=== PATIENT | male | born 1925 | race Caucasian/White ===

== ENCOUNTER 2017-02-06 23:40 | Emergency (ER) | payer MEDICARE, MEDICAID ==
[2017-02-06] MEDS ORDERED: NS 0.9% 1000 ML* 1,000 ML IV ONE (23:59)
[2017-02-07] MEDS ORDERED: Diltiazem IV* 5 MG/ML 5 ML VIAL (for loading dose/IV Push) (25 MG) IV SLOW PU ONE (00:03)
[2017-02-07 00:44] LABS: Hematocrit 46 % (42-52); Hemoglobin 15.4 g/dl (14.0-18.0); Mean Corpuscular HGB Conc 33 g/dl (31-36); Mean Corpuscular Hemoglobin 31 pg (27-31); Mean Corpuscular Volume 93 fL (80-94); Mean Platelet Volume 8 um3 (7.4-10.4); Red Blood Count 4.98 10^6/ul (4.0-5.4); Red Cell Distribution Width 14 % (10.5-15); White Blood Count 9.3 10^3/ul (3.5-10.8)
[2017-02-07 00:56] LABS: Albumin 4.1 g/dL (3.2-5.2); BUN/Creatinine Ratio 12.7 (8-20); Calcium 10.1 mg/dL (8.6-10.3); EGFR African American 27.1 (>60); EGFR Non-African American 21.1 (>60); Globulin 3.8 g/dL (2-4); Potassium 4.7 mmol/L (3.5-5.0); Total Bilirubin 0.7 mg/dL (0.2-1.0); Total Protein 7.9 g/dL (6.4-8.9)
[2017-02-07 00:58] LABS: Troponin I 0.01 ng/mL (<0.04)
[2017-02-07] MEDS ORDERED: NS 0.9% 500 ML* 500 ML IV ONE (01:00)
--- NOTE | 2017-02-07 03:10 | ED ---
Lewis Stewart Adam, scribed for Saji Lyon on 02/07/17 at 0005 . Adult Trauma - HPI Summary HPI Summary: Pt is an 89 year old male BIBA from assisted living after a fall. The pt tripped over the door threshold while coming out of the bathroom. He states that he does not think that he lost consciousness, although he indicated to the nurse +LOC. He presents with abrasions to his left shoulder, forehead, nose, and the left side of his face. He c/o left shoulder pain. He denies neck pain, CP, and abdominal pain. PMHx of A Fib, CAD, PVD, spinal stenosis, HTN, hyperparathyroidism, GERD, and CKD. - History of Current Complaint Chief Complaint: ED Stated Complaint: FALL Time Seen by Provider: 02/06/17 23:45 Hx Obtained From: Patient Mechanism of Injury: Fall Ambulatory at the Scene: Yes Loss of Consciousness: no loss of consciousness - Although he told nurse +LOC Onset/Duration: Started Minutes Ago, Traumatic, Still Present Onset of Pain: Immediate Onset Severity: Moderate Current Severity: Moderate Pain Intensity: 10 Pain Scale Used: 0-10 Numeric Location: Extremities - Left shoulder Aggravating Factor(s): Nothing Alleviating Factor(s): Nothing Associated Signs & Symptoms: Positive: Other: - Abrasions to left shoulder, forehead, nose, and left side of face. - Additional Pertinent History Primary Care Physician: [id number] - Allergy/Home Medications Allergies/Adverse Reactions: Allergies Allergy/AdvReac Type Severity Reaction Status Date / Time Codeine Allergy Intermediate Vomiting Verified 09/06/16 13:51 Donepezil Allergy Unknown Verified 09/06/16 13:51 Reaction Details Neomycin Allergy Unknown Verified 09/06/16 13:51 Reaction Details Penicillins Allergy Unknown Verified 09/06/16 13:51 Reaction Details PMH/Surg Hx/FS Hx/Imm Hx Endocrine/Hematology History: Reports: Hx Thyroid Disease - hyperthyroid, Other Endocrine/Hematological Disorders - Hx of hypomagnesemia Denies: Hx Anticoagulant Therapy - pt denies Cardiovascular History: Reports: Hx Atrial Fibrillation, Hx Coronary Artery Disease, Hx Hypertension, Hx Peripheral Vascular Disease GI History: Reports: Hx Gastroesophageal Reflux Disease History: Reports: Hx Chronic Renal Failure Neurological History: Reports: Hx Dementia - Surgical History Surgery Procedure, Year, and Place: hernia repair Infectious Disease History: No Infectious Disease History: Denies: Hx Clostridium Difficile, Hx Hepatitis, Hx Human Immunodeficiency Virus (HIV), Hx of Known/Suspected MRSA, Hx Shingles, Hx Tuberculosis, History Other Infectious Disease, Traveled Outside the [place] in Last 30 Days - Family History Known Family History: Positive: Other - No FHx of DVT - Social History Occupation: Retired Lives: Assisted Living Alcohol Use: None Hx Substance Use: No Substance Use Type: Reports: None Hx Tobacco Use: No Smoking Status (MU): Never Smoked Tobacco Review of Systems Negative: Fever Positive: Arthralgia - Left shoulder, Decreased ROM - Left arm Positive: Other - Abrasion of forehead, nose, and left side of face. Abrasion over left shoulder as well. All Other Systems Reviewed And Are Negative: Yes Physical Exam Triage Information Reviewed: Yes Vital Signs On Initial Exam: Initial Vitals Temp Pulse Resp BP Pulse Ox 98.7 F 126 20 104/62 93 02/06/17 23:51 02/06/17 23:51 02/06/17 23:51 02/06/17 23:51 02/06/17 23:51 Vital Signs Reviewed: Yes Appearance: Positive: Well-Appearing, No Pain Distress Skin: Positive: Warm, Skin Color Reflects Adequate Perfusion, Dry Head/Face: Positive: Other - Abrasion of forehead and nose and left side of face Eyes: Positive: EOMI, MAGALI ENT: Positive: Normal ENT inspection Neck: Positive: Supple, Nontender Respiratory/Lung Sounds: Positive: Clear to Auscultation, Breath Sounds Present Cardiovascular: Positive: IRR - Irregularly irregular, A Fib, Tachycardia Abdomen Description: Positive: Nontender, Soft Musculoskeletal: Positive: Other - Painful abrasion over left shoulder. Restricted ROM of left arm. Neurological: Positive: Normal, Sensory/Motor Intact, Alert, Oriented to Person Place, Time Diagnostics - Vital Signs Vital Signs Temp Pulse Resp BP Pulse Ox 02/06/17 23:51 98.7 F 126 20 104/62 93 - Laboratory Result Diagrams: 02/07/17 00:25 02/07/17 00:25 Lab Statement: Any lab studies that have been ordered have been reviewed, and results considered in the medical decision making process. - Radiology LEFT SHOULDER Radiology Interpretation Completed By: ED Physician - NEGATIVE FOR FRACTURE - CT CERVICAL SPINE CT Interpretation Completed By: Radiologist - IMPRESSION: NO FRACTURE OR LISTHESIS IS SEEN. BRAIN CT Interpretation Completed By: Radiologist - IMPRESSION: NO MASS EFFECT OR INTRACRANIAL HEMORRHAGE. OLD SMALL VESSEL INFARCT IN THE CAUDATE NUCLEUS AND RIGHT MAXILLOFACIAL CT Interpretation Completed By: Radiologist - IMPRESSION: NO FRACTURE OR DISLOCATION SEEN. - EKG 00:30 Cardiac Rate: Tachycardia - 115 BPM EKG Rhythm: Atrial Fibrillation - With RVR - Additional Comments Diagnostic Additional Comments: Troponin I - 0.01 Adult Trauma Course/Dx - Course Course Of Treatment: No fracture visualized in Shoulder X-Ray image. However, I will call the patient back tomorrow with the radiologist's report if there is in fact a fracture. - Diagnoses Provider Diagnoses: Head injury, Contusion of face, Left shoulder pain Discharge - Discharge Plan Condition: Stable Disposition: HOME Patient Education Materials: Head Injury (ED), Facial Contusion (ED), Shoulder Pain (ED) Referrals: [facility] [Outside] Additional Instructions: Follow up with your Primary Care Physician in 2 days. If needed, use [facility]. The documentation as recorded by the Lewis boyd Adam accurately reflects the service I personally performed and the decisions made by , Saji Lyon.
[2017-02-07 04:00] VITALS: BP 115/67
--- NOTE | 2017-02-07 07:31 | RAD ---
INDICATION: Trauma. COMPARISON: Comparison is made with a prior chest x-ray study from July 10, 2016. TECHNIQUE: A portable view of the chest was obtained. FINDINGS: Cardiac and mediastinal contours appear to be within normal limits. The lungs are underinflated and clear. No pleural effusion is seen. IMPRESSION: NO EVIDENCE FOR ACUTE DISEASE.
--- NOTE | 2017-02-07 07:49 | RAD ---
INDICATION: Head injury. COMPARISON: Comparison is made with a prior CT of the brain from April 11, 2015. TECHNIQUE: Contiguous axial sections of the brain were obtained from the skull base to the vertex without contrast. FINDINGS: The ventricles, cisterns and sulci are enlarged consistent with diffuse atrophy. There is an old lacunar infarct present within the right caudate nucleus. No other focal lateral mallear mass effect is seen. There is no evidence for hemorrhage. Soft tissue swelling is noted anterior to the left frontal bone. No fracture is seen. The visualized portion of the paranasal sinuses and mastoid air cells appear clear. IMPRESSION: 1. NO EVIDENCE FOR ACUTE INTRACRANIAL ABNORMALITY. 2. OLD LACUNAR INFARCT WITHIN THE RIGHT CAUDATE NUCLEUS.
--- NOTE | 2017-02-07 07:59 | RAD ---
INDICATION: Trauma. COMPARISON: There are no prior studies available for comparison. TECHNIQUE: Contiguous axial sections were obtained from the skull base through the T1 vertebra. Images were reconstructed in the sagittal and coronal planes. FINDINGS: There is straightening of the cervical spine with loss of the normal cervical lordosis. No prevertebral soft tissue swelling or fracture is seen. At the C3-C4 level there are moderate hypertrophic changes within the facet joints and moderate posterior uncinate process spurring. No significant spinal canal narrowing is present. There is moderate bilateral neural foraminal narrowing. At the C4-C5 level there are moderate hypertrophic changes within the facet joints. There is mild posterior uncinate process spurring. No significant spinal canal narrowing is present. There is moderate neural foraminal narrowing on the right side and mild neural foraminal narrowing on the left side. At the C5-C6 level there is mild posterior uncinate process spurring. No significant spinal canal or neural foraminal narrowing is present. At the C6-C7 level there is mild posterior uncinate process spurring. There is mild spinal canal narrowing and mild to moderate bilateral neural foraminal narrowing. The patient appears to be status post removal of the left thyroid lobe. The right thyroid lobe is enlarged with multiple nodules. Recommend a follow-up thyroid ultrasound for further evaluation. IMPRESSION: 1. STRAIGHTENING OF THE CERVICAL SPINE, NO EVIDENCE FOR FRACTURE OR SUBLUXATION. 2. RIGHT THYROID LOBE NODULES. RECOMMEND A FOLLOW-UP THYROID ULTRASOUND FOR FURTHER EVALUATION.
--- NOTE | 2017-02-07 08:00 | RAD ---
Indication: Pain LEFT shoulder post fall. Comparison: None. Technique: Neutral and external rotation AP and scapular Y views LEFT shoulder Report: Normal acromioclavicular and glenohumeral joint alignment. Advanced osteophytosis at the acromioclavicular and mild osteophytosis at the glenohumeral joints. Stigmata of calcific tendinopathy at the supraspinatus tendon. Negative for fracture. Unremarkable soft tissue contours. IMPRESSION: Negative for fracture or dislocation. Degenerative arthropathy. Calcific tendinopathy.
--- NOTE | 2017-02-07 08:04 | RAD ---
Indication: Trauma, facial injury. CT of the facial bones was obtained in the axial plane. Sagittal and coronal reconstructed images noted. The visualized orbits demonstrate no evidence of abnormal masses or fluid collections. Minimal mucosal thickening with air-fluid level is noted in the right maxillary sinus. No fracture is noted. There may BE obstruction of the right ostiomeatal unit. Mucosal thickening of the ethmoid air cells is noted. No definite fracture is noted. The temporomandibular joint and mandible show no evidence of fracture. The maxilla including the pterygoid plates demonstrates no evidence of fracture. The nasal arch and nasal spine are unremarkable. IMPRESSION: No fracture of the facial bones is identified. Chronic sinusitis with mucosal thickening of the ethmoid air cells and right maxillary sinus with fluid in the right maxillary sinus.
== END 2017-02-07 03:59 | disposition home or self-care (01) ==
LOC: ED 23:40
DX: S09.90XA Unspecified injury of head, initial encounter (principal); S40.212A Abrasion of left shoulder, initial encounter; S00.93XA Contusion of unspecified part of head, initial encounter; W19.XXXA Unspecified fall, initial encounter; Y93.9 Activity, unspecified; Y92.9 Unspecified place or not applicable; Y99.9 Unspecified external cause status
CPT/HCPCS: 36415; 70450; 70486; 71010; 72125; 80053; 82550; 84484; 85025; 85610; 93005; 96374; 99283

== ENCOUNTER 2017-02-08 11:36 | Emergency (ER) | payer MEDICARE, MEDICAID ==
[2017-02-08] MEDS ORDERED: Acetaminophen TAB* 325 MG PO ONE (12:39)
--- NOTE | 2017-02-08 14:02 | RAD ---
Indication: Inability to move LEFT shoulder post fall. Comparison: February 07, 2017 radiographs. Technique: Noncontrast CT LEFT shoulder. Multiplanar reformation. Report: Normal acromioclavicular and glenohumeral joint alignment. Moderately severe osteophytosis and capsular hypertrophy at the acromioclavicular joint. Small volume of fluid in the subacromial subdeltoid bursa. Small focus of calcific tendinopathy at the posterior margin of the supraspinatus and anterior margin of the infraspinatus tendons. Negative for significant rotator cuff muscle atrophy. Mild osteophytosis and joint space narrowing at the glenohumeral joint. Enthesophytes and subchondral cystic change at the greater tuberosity typically seen in association with rotator cuff pathology. IMPRESSION: Degenerative arthropathy including calcific tendinopathy of the rotator cuff. Small volume of fluid in the subacromial subdeltoid bursa. Negative for fracture or malalignment.
--- NOTE | 2017-02-08 14:21 | ED ---
Upper Extremity Pain - HPI Summary HPI Summary: 89M presents with left shoulder pain since fall two days ago. He had xray at that time which was normal. He states he has been unable to raise his arm and that every time he tries to use it, his arm drops. He has been using Tylenol for pain and that is not enough. He is a [facility] an [facility]. He denies any chest pain or SOB. He denies any locking of his shoulder. - History of Current Complaint Chief Complaint: Nasreen Stated Complaint: FALL TWO DAYS AGO SHOULDER PAIN Time Seen by Provider: 02/08/17 11:55 - Allergies/Home Medications Allergies/Adverse Reactions: Allergies Allergy/AdvReac Type Severity Reaction Status Date / Time Codeine Allergy Intermediate Vomiting Verified 09/06/16 13:51 Donepezil Allergy Unknown Verified 09/06/16 13:51 Reaction Details Neomycin Allergy Unknown Verified 09/06/16 13:51 Reaction Details Penicillins Allergy Unknown Verified 09/06/16 13:51 Reaction Details PMH/Surg Hx/FS Hx/Imm Hx Endocrine/Hematology History: Reports: Hx Thyroid Disease - hyperthyroid, Other Endocrine/Hematological Disorders - Hx of hypomagnesemia Denies: Hx Anticoagulant Therapy - pt denies Cardiovascular History: Reports: Hx Atrial Fibrillation, Hx Coronary Artery Disease, Hx Hypertension, Hx Peripheral Vascular Disease, Other Cardiovascular Problems/Disorders - PVD, CHRONIC RENAL FAILURE GI History: Reports: Hx Gastroesophageal Reflux Disease History: Reports: Hx Chronic Renal Failure Neurological History: Reports: Hx Dementia - Surgical History Surgery Procedure, Year, and Place: hernia repair Infectious Disease History: Denies: Hx Clostridium Difficile, Hx Hepatitis, Hx Human Immunodeficiency Virus (HIV), Hx of Known/Suspected MRSA, Hx Shingles, Hx Tuberculosis, History Other Infectious Disease, Traveled Outside the [place] in Last 30 Days - Family History Known Family History: Positive: None, Other - No FHx of DVT Family History: R & n/C - Social History Alcohol Use: None Hx Substance Use: No Substance Use Type: Reports: None Hx Tobacco Use: No Smoking Status (MU): Never Smoked Tobacco Review of Systems Negative: Fever Negative: Chest Pain Positive: Myalgia - left shoulder pain All Other Systems Reviewed And Are Negative: Yes Physical Exam Triage Information Reviewed: Yes Vital Signs On Initial Exam: Initial Vitals BP 113/56 02/08/17 11:55 Vital Signs Reviewed: Yes Appearance: Positive: Well-Appearing Skin: Positive: Warm, Dry Head/Face: Positive: Normal Head/Face Inspection Eyes: Positive: Normal, Conjunctiva Clear Neck: Positive: Nontender Respiratory/Lung Sounds: Positive: Clear to Auscultation, Breath Sounds Present Cardiovascular: Positive: Normal, RRR Musculoskeletal: Positive: Other - pos drop arm on exam, unable to move shoulder behind back, good pulses, capillary refill <2 secs Diagnostics - Vital Signs Vital Signs Temp Pulse Resp BP Pulse Ox 02/08/17 13:00 58 98/67 93 02/08/17 12:00 59 110/64 96 02/08/17 11:59 97.8 F 57 18 113/56 96 02/08/17 11:57 59 96 02/08/17 11:55 113/56 - Laboratory Lab Statement: Any lab studies that have been ordered have been reviewed, and results considered in the medical decision making process. - CT shoulder CT Interpretation: Positive (See Comments) - IMPRESSION: Degenerative arthropathy including calcific tendinopathy of the rotator cuff. Small volume of fluid in the subacromial subdeltoid bursa. Negative for fracture or malalignment. CT Interpretation Completed By: Radiologist Course/Dx - Course Course Of Treatment: 89M presents with left shoulder pain for 2 days s/p fall. shoulder pain is mechanical and do not suspect any cardiac reason for pain. unable to move shoulder. xray normal. pos drop arm on exam. CT normal suspect likely rotator cuff injury. will place in sling and have follow up with ortho. patient understands and agrees with plan - Diagnoses Differential Diagnosis/HQI/PQRI: Positive: Contusion, Fracture (Closed), Strain , Sprain, Other - rotator cuff tear Provider Diagnoses: Left shoulder pain Discharge - Discharge Plan Condition: Good Disposition: HOME Prescriptions: traMADol TAB* [Ultram*] 50 mg PO Q8H PRN #15 tab MDD 3 PRN Reason: Pain Patient Education Materials: Rotator Cuff Injury (ED) Referrals: Marin Montalvo MD [Medical Doctor] - No Primary Care Phys,NOPCP [Primary Care Provider] - Additional Instructions: Follow up with ortho for shoulder Keep area in sling Take Tylenol for pain every 6 hours, use tramadol every 6 hours for break through pain Return to ED if develop any new or worsening symptoms
[2017-02-08 14:41] VITALS: BP 106/55
== END 2017-02-08 14:41 | disposition home or self-care (01) ==
LOC: ED 11:36
DX: M25.512 Pain in left shoulder (principal); W19.XXXA Unspecified fall, initial encounter; Y92.9 Unspecified place or not applicable; I48.91 Unspecified atrial fibrillation; Z88.0 Allergy status to penicillin; E05.90 Thyrotoxicosis, unspecified without thyrotoxic crisis or storm; E83.42 Hypomagnesemia; I25.10 Atherosclerotic heart disease of native coronary artery without angina pectoris; I10 Essential (primary) hypertension; I73.9 Peripheral vascular disease, unspecified; K21.9 Gastro-esophageal reflux disease without esophagitis
CPT/HCPCS: 99282; A9270-GY

== ENCOUNTER 2017-02-14 15:32 | Inpatient (IN) | payer MEDICARE, MEDICAID ==
[2017-02-14] MEDS ORDERED: NS 0.9% 1000 ML* 1,000 ML IV ONE (15:58)
[2017-02-14 16:05] LABS: Hematocrit 47 % (42-52); Hemoglobin 15.2 g/dl (14.0-18.0); Mean Corpuscular HGB Conc 33 g/dl (31-36); Mean Corpuscular Hemoglobin 30 pg (27-31); Mean Corpuscular Volume 93 fL (80-94); Mean Platelet Volume 8 um3 (7.4-10.4); Red Cell Distribution Width 14 % (10.5-15)
[2017-02-14 16:27] LABS: Troponin I 0.02 ng/mL (<0.04)
[2017-02-14 16:28] LABS: Albumin 4.1 g/dL (3.2-5.2); BUN/Creatinine Ratio 14.9 (8-20); C Reactive Protein 21.27 mg/L (< 5.00); Calcium 10.1 mg/dL (8.6-10.3); EGFR African American 28.9 (>60); EGFR Non-African American 22.5 (>60); Globulin 3.9 g/dL (2-4); Magnesium 2.1 mg/dL (1.9-2.7); Potassium 4.8 mmol/L (3.5-5.0); Total Bilirubin 0.7 mg/dL (0.2-1.0)
[2017-02-14 16:55] LABS: TSH (Thyroid Stimulating Horm) 1.01 mcIU/mL (0.34-5.60)
--- NOTE | 2017-02-14 17:24 | RAD ---
INDICATION: Weakness. COMPARISON: Comparison is made with a prior chest x-ray study from February 07, 2017. TECHNIQUE: A portable view of the chest was obtained. FINDINGS: Cardiac and mediastinal contours appear to be within normal limits. The lungs are clear. No pleural effusion is seen. IMPRESSION: NO EVIDENCE FOR ACUTE DISEASE.
--- NOTE | 2017-02-14 17:44 | ED ---
Chase Stewart Billy, scribed for Ady Vo MD on 02/14/17 at 1605 . Complex/Multi-Sys Presentation - HPI Summary HPI Summary: Patient is an 89 year-old male BIBA to [facility] from [facility]. Per medical records, patient was sent to the ED for evaluation of orthostacic hypotension, dehydration, acute renal failure, emesis, decreased appetite, weakness, incontinence, dizziness, and left shoulder pain from a fall 02/09/17. In the ED, patient states that he fell and hurt his shoulder today, and denies any other pain. - History Of Current Complaint Chief Complaint: EDDizziness Time Seen by Provider: 02/14/17 15:55 Hx Obtained From: Patient Onset/Duration: Gradual Onset, Lasting Days, Still Present Timing: Intermittent, Lasting: Severity Currently: Moderate Severity Initially: Moderate Aggravating Factor(s): none Alleviating Factor(s): none Associated Signs And Symptoms: Positive: Dizziness, Weakness, Vomiting, Decreased Oral Intake, Other - incontinence, left shoulder pain, - Allergies/Home Medications Allergies/Adverse Reactions: Allergies Allergy/AdvReac Type Severity Reaction Status Date / Time Codeine Allergy Intermediate Vomiting Verified 09/06/16 13:51 Donepezil Allergy Unknown Verified 09/06/16 13:51 Reaction Details Neomycin Allergy Unknown Verified 09/06/16 13:51 Reaction Details Penicillins Allergy Unknown Verified 09/06/16 13:51 Reaction Details Home Medications: Home Medications Cyanocobalamin TAB* [Vitamin B12 TAB*] 1,000 mcg PO DAILY 02/14/17 [History Confirmed 02/14/17] Doxazosin TAB* [Cardura TAB*] 1 mg PO BEDTIME 02/14/17 [History Confirmed ] Furosemide TAB* [Lasix TAB*] 20 mg PO BID 02/14/17 [History Confirmed 02/14/17] Metoprolol Tartrate TAB* [Lopressor TAB*] 12.5 mg PO DAILY 02/14/17 [History Confirmed 02/14/17] traMADol TAB* [Ultram*] 50 mg PO BID 02/14/17 [History Confirmed 02/14/17] PMH/Surg Hx/FS Hx/Imm Hx Endocrine/Hematology History: Reports: Hx Thyroid Disease - hyperthyroid, Other Endocrine/Hematological Disorders - Hx of hypomagnesemia Denies: Hx Anticoagulant Therapy - pt denies Cardiovascular History: Reports: Hx Atrial Fibrillation, Hx Coronary Artery Disease, Hx Hypertension, Hx Peripheral Vascular Disease, Other Cardiovascular Problems/Disorders - PVD, CHRONIC RENAL FAILURE GI History: Reports: Hx Gastroesophageal Reflux Disease History: Reports: Hx Chronic Renal Failure Neurological History: Reports: Hx Dementia - Surgical History Surgery Procedure, Year, and Place: hernia repair Infectious Disease History: No Infectious Disease History: Denies: Hx Clostridium Difficile, Hx Hepatitis, Hx Human Immunodeficiency Virus (HIV), Hx of Known/Suspected MRSA, Hx Shingles, Hx Tuberculosis, History Other Infectious Disease, Traveled Outside the [place] in Last 30 Days - Family History Known Family History: Positive: None, Other - No FHx of DVT Family History: R & n/C - Social History Alcohol Use: None Hx Substance Use: No Substance Use Type: Reports: None Hx Tobacco Use: No Smoking Status (MU): Never Smoked Tobacco Review of Systems Positive: Other - orthostatic hypotension Positive: Vomiting, Other - decreased appetite Positive: incontinence Positive: Arthralgia - left shoulder Neurological: Other - confusion Positive: Weakness All Other Systems Reviewed And Are Negative: Yes Physical Exam Triage Information Reviewed: Yes Vital Signs On Initial Exam: Initial Vitals Temp Pulse Resp BP Pulse Ox 98.0 F 89 18 98/83 97 02/14/17 15:37 02/14/17 15:37 02/14/17 15:37 02/14/17 15:37 02/14/17 15:37 Vital Signs Reviewed: Yes Appearance: Positive: Well-Appearing, No Pain Distress Skin: Positive: Warm, Skin Color Reflects Adequate Perfusion, Dry Head/Face: Positive: Normal Head/Face Inspection Eyes: Positive: EOMI, MAGALI Neck: Positive: Supple, Nontender Respiratory/Lung Sounds: Positive: Clear to Auscultation, Breath Sounds Present , Decreased Breath Sounds Cardiovascular: Positive: RRR Abdomen Description: Positive: Nontender, Soft Bowel Sounds: Positive: Present Musculoskeletal: Positive: Pain @ - left shoulder Neurological: Positive: Sensory/Motor Intact, Other - mild confusion Psychiatric: Positive: Affect/Mood Appropriate Diagnostics - Vital Signs Vital Signs Temp Pulse Resp BP Pulse Ox 02/14/17 15:37 98.0 F 89 18 98/83 97 - Laboratory Lab Results: Lab Results 02/14/17 02/14/17 02/14/17 Range/Units 15:54 15:54 15:54 WBC 9.0 (3.5-10.8) 10^3/ul RBC 5.00 (4.0-5.4) 10^6/ul Hgb 15.2 (14.0-18.0) g/dl Hct 47 (42-52) % MCV 93 (80-94) fL MCH 30 (27-31) pg MCHC 33 (31-36) g/dl RDW 14 (10.5-15) % Plt Count 203 (150-450) 10^3/ul MPV 8 (7.4-10.4) um3 Neut % (Auto) 80.4 (38-83) % Lymph % (Auto) 10.2 L (25-47) % Day % (Auto) 8.4 (1-9) % Eos % (Auto) 0.3 (0-6) % Baso % (Auto) 0.7 (0-2) % Absolute Neuts (auto) 7.2 (1.5-7.7) 10^3/ul Absolute Lymphs (auto) 0.9 L (1.0-4.8) 10^3/ul Absolute Monos (auto) 0.7 (0-0.8) 10^3/ul Absolute Eos (auto) 0 (0-0.6) 10^3/ul Absolute Basos (auto) 0.1 (0-0.2) 10^3/ul Absolute Nucleated RBC 0 10^3/ul Nucleated RBC % 0 INR (Anticoag Therapy) 0.97 (0.89-1.11) APTT 27.4 (26.0-36.3) seconds Sodium 131 L (133-145) mmol/L Potassium 4.8 (3.5-5.0) mmol/L Chloride 95 L (101-111) mmol/L Carbon Dioxide 28 (22-32) mmol/L Anion Gap 8 (2-11) mmol/L BUN 40 H (6-24) mg/dL Creatinine 2.69 H (0.67-1.17) mg/dL Est GFR ( Amer) 28.9 (>60) Est GFR (Non-Af Amer) 22.5 (>60) BUN/Creatinine Ratio 14.9 (8-20) Glucose 107 H (70-100) mg/dL Lactic Acid (0.5-2.0) mmol/L Calcium 10.1 (8.6-10.3) mg/dL Magnesium 2.1 (1.9-2.7) mg/dL Total Bilirubin 0.70 (0.2-1.0) mg/dL AST 20 (13-39) U/L ALT 17 (7-52) U/L Alkaline Phosphatase 59 (34-104) U/L Total Creatine Kinase 72 (10-223) U/L CK-MB (CK-2) 2.8 (0.6-6.3) ng/mL Troponin I 0.02 (<0.04) ng/mL C-Reactive Protein 21.27 H (< 5.00) mg/L B-Natriuretic Peptide ( - 100) pg/mL Total Protein 8.0 (6.4-8.9) g/dL Albumin 4.1 (3.2-5.2) g/dL Globulin 3.9 (2-4) g/dL Albumin/Globulin Ratio 1.1 (1-3) Lipase 21 (11.0-82.0) U/L TSH 1.01 (0.34-5.60) mcIU/mL 02/14/17 02/14/17 Range/Units 15:54 15:54 WBC (3.5-10.8) 10^3/ul RBC (4.0-5.4) 10^6/ul Hgb (14.0-18.0) g/dl Hct (42-52) % MCV (80-94) fL MCH (27-31) pg MCHC (31-36) g/dl RDW (10.5-15) % Plt Count (150-450) 10^3/ul MPV (7.4-10.4) um3 Neut % (Auto) (38-83) % Lymph % (Auto) (25-47) % Day % (Auto) (1-9) % Eos % (Auto) (0-6) % Baso % (Auto) (0-2) % Absolute Neuts (auto) (1.5-7.7) 10^3/ul Absolute Lymphs (auto) (1.0-4.8) 10^3/ul Absolute Monos (auto) (0-0.8) 10^3/ul Absolute Eos (auto) (0-0.6) 10^3/ul Absolute Basos (auto) (0-0.2) 10^3/ul Absolute Nucleated RBC 10^3/ul Nucleated RBC % INR (Anticoag Therapy) (0.89-1.11) APTT (26.0-36.3) seconds Sodium (133-145) mmol/L Potassium (3.5-5.0) mmol/L Chloride (101-111) mmol/L Carbon Dioxide (22-32) mmol/L Anion Gap (2-11) mmol/L BUN (6-24) mg/dL Creatinine (0.67-1.17) mg/dL Est GFR ( Amer) (>60) Est GFR (Non-Af Amer) (>60) BUN/Creatinine Ratio (8-20) Glucose (70-100) mg/dL Lactic Acid 2.8 H* (0.5-2.0) mmol/L Calcium (8.6-10.3) mg/dL Magnesium (1.9-2.7) mg/dL Total Bilirubin (0.2-1.0) mg/dL AST (13-39) U/L ALT (7-52) U/L Alkaline Phosphatase (34-104) U/L Total Creatine Kinase (10-223) U/L CK-MB (CK-2) (0.6-6.3) ng/mL Troponin I (<0.04) ng/mL C-Reactive Protein (< 5.00) mg/L B-Natriuretic Peptide 121 H ( - 100) pg/mL Total Protein (6.4-8.9) g/dL Albumin (3.2-5.2) g/dL Globulin (2-4) g/dL Albumin/Globulin Ratio (1-3) Lipase (11.0-82.0) U/L TSH (0.34-5.60) mcIU/mL Result Diagrams: 02/14/17 15:54 02/14/17 15:54 Lab Statement: Any lab studies that have been ordered have been reviewed, and results considered in the medical decision making process. - EKG 1550 EKG Interpretation: afib 104 bpm, TWI in III and aVF Complex Multi-Symp Course/Dx Assessment/Plan: ADMIT HOSPITALIST GUARDED. NO CRITICAL CARE TIME. - Diagnoses Provider Diagnoses: Hypotension, Weakness - Physician Notifications Discussed Care Of Patient With: Dr. Kolb (hospitalist) @ 1722: accepts admission. Discharge - Discharge Plan Condition: Guarded Disposition: ADMITTED TO [facility] Referrals: No Primary Care Phys,NOPCP [Primary Care Provider] - The documentation as recorded by the Chase boyd Billy accurately reflects the service I personally performed and the decisions made by me, Ady Vo MD.
[2017-02-14] MEDS ORDERED: NS 0.9% 1000 ML* 1,000 ML IV SCH (17:45)
[2017-02-14 17:47] LABS: Urine Bacteria Absent (Absent); Urine Bilirubin Negative (Negative); Urine Glucose Negative (Negative); Urine Nitrite Negative (Negative)
[2017-02-14] MEDS ORDERED: Calcium Carbonate CHEW TAB* 500 MG (TUMS) PO PRN (19:06)
[2017-02-14] MEDS: Doxazosin TAB* 2 MG PO SCH (21:04)
[2017-02-14] MEDS: Magnesium Oxide TAB* 400 MG PO SCH (21:05)
[2017-02-14] MEDS: NS 0.9% 1000 ML* 1,000 ML IV SCH (21:08)
[2017-02-14] MEDS: cefTRIAXone VIAL(*) 1,000 MG in NS 0.9% 50 ML* 50 ML IVPB SCH (21:08)
[2017-02-14] MEDS ORDERED: Melatonin (NF) 3 MG TAB PO PRN (22:14)
--- NOTE | 2017-02-14 23:21 | HP ---
HOSPITAL MEDICINE HISTORY AND PHYSICAL: DATE OF ADMISSION: 02/14/17 PRIMARY CARE PROVIDER: [facility]. ATTENDING PHYSICIAN: Dr. Benson Artis*(dictation provided by Joan Ford NP) CHIEF COMPLAINT: Weight loss and low blood pressure. HISTORY OF PRESENT ILLNESS: Mr. Isac Contreras is an [id number] with a past medical history of CKD stage 4, depression, atrial flutter, anxiety who presents today to the hospital with concern from [facility] for his low blood pressure, lack of interest in activities and weight loss. Per the report, Mr. Contreras had been doing relatively well at [facility]. He had made a friend of another female resident with whom he used to go to dinner and spend time with. Recently, she was transferred to another facility and since that time, Mr. Contreras has become more withdrawn. Staff reports that he does not leave his room and that he has been refusing to come out to eat. Mr. Contreras does confirm this and states that he has had much less interest in anything and does associate it with the fact that his friend has left. They started him on Lexapro at one point, but did not see any good improvement in his mood and therefore that had been discontinued. The patient has been seen by his physicians at the [facility] and there has been continued concern of the patient's weight loss. Apparently, the patient has lost 26 pounds in the past about 2 months. Today, the patient was noted to have a low blood pressure and had been complaining of lightheadedness. He also reports to me that he had a fall couple of days ago where he landed on his left shoulder. He is not sure how that happened, but thinks that he was lightheaded previous to that. In the emergency room, Mr. Contreras has an elevated lactic acid at 2.8. His CRP is only 21.27. His urinalysis is suspicious for infection with 3+ leuk esterase. His chest x-ray shows no acute process. PAST MEDICAL HISTORY: 1. CKD stage 4. 2. Depression. 3. Chronic pain. 4. Aflutter. 5. Hypertension. 6. GERD. 7. Dementia. 8. Anxiety. 9. CHF with intact ejection fraction. 10. Peripheral vascular disease. 11. Vitamin D deficiency. MEDICATIONS: 1. Tylenol p.r.n. 2. Furosemide 20 mg p.o. b.i.d. 3. Tramadol 50 mg p.o. b.i.d. 4. Aspirin 81 mg p.o. daily. 5. Calcitriol 0.5 mcg p.o. daily. 6. Calcium carbonate 500 mg p.o. b.i.d. 7. Cyanocobalamin 1000 mcg p.o. daily. 8. Doxazosin 1 mg p.o. at bedtime. 9. Magnesium oxide 800 mg p.o. b.i.d. 10. Metoprolol tartrate 12.5 mg p.o. daily. 11. Omeprazole 20 mg p.o. daily. 12. Potassium chloride 20 mEq p.o. daily. ALLERGIES: To CODEINE, DONEPEZIL, NEOMYCIN and PENICILLINS. FAMILY HISTORY: Reviewed and noncontributory in this 89-year-old male today. The patient states that his daughter and son live in town and they have no acute health issues. SOCIAL HISTORY: No report of alcohol, tobacco or drug use. The patient lives at [facility]. He states that his daughter, Elzbieta, would be his healthcare proxy. REVIEW OF SYSTEMS: A 14-point review of systems was completed with Ms. Contreras and all those not mentioned above were negative. PHYSICAL EXAMINATION GENERAL: Mr. Contreras is sitting up in the bed. He is in no acute distress. He is calm and cooperative with my examination. VITAL SIGNS: Temperature 98.0, pulse rate 97, respiratory rate 14, O2 saturation 94% on room air, blood pressure 103/69. LUNGS: Clear to auscultation bilaterally with no accessory muscle use and good aeration. HEART: S1, S2. No murmur, rub, or gallop, and regular. ABDOMEN: Soft, nontender with bowel sounds positive x4. EXTREMITIES: No cyanosis or edema. NEUROLOGIC: He is alert and oriented x3. He knows he in the hospital and he has good recollection of previous events. He moves all extremities equally. There is no facial asymmetry or focal weakness. Extraocular movements are intact. SKIN: Intact. DIAGNOSTIC STUDIES/LAB DATA: WBC 9.0, hemoglobin 15.2, hematocrit 47, platelet count 203. INR 0.97. Sodium 131, potassium 4.8, chloride 95, serum bicarbonate 28, BUN 40, creatinine 2.69, glucose 107, lactic acid 2.8. CRP 21.27, troponin 0.02, BNP 121. Urine shows 3+ leukocyte esterase, but actually no bacteria. Flu swab is negative. Chest x-ray shows no acute intrathoracic process. EKG shows an atrial fibrillation with rate controlled in approximately around 100. ASSESSMENT AND PLAN: Mr. Contreras is an 89-year-old male with a past medical history of dementia, anxiety, depression, chronic kidney disease stage 4, congestive heart failure, and atrial flutter who presents today at the hospital with concern for hypotension, lightheadedness in the setting of a 26-pound weight loss and concern for depression. Our plans are for observation in the hospital for the followin. Hypotension. The patient has responded to intravenous fluids here in the emergency room today. My plan is to continue IV fluids and to recheck orthostatic vital signs. I suspect that this low blood pressure is related to dehydration in the setting of poor oral intake and the use of metoprolol and furosemide as an outpatient. For now, plan to hold furosemide, but continue metoprolol. 2. Weight loss. Per the report, Mr. Contreras has lost 26 pounds in the past 10 weeks. It sounds from the notes from the patient's primary care physician that this has been attributed to depression and loss of social contact with his friend. Mr. Contreras himself is corroborating that story. He denies any abdominal pain or any other nausea, but simply states he has lost interest in eating. He states "I would be interested if someone came along to ask me to eat." In the emergency room, he is hungry and has already had a sandwich and some crackers and tolerated them well. Plan to check his prealbumin and to have a nutritional consult. 3. Urinary tract infection. The patient has no symptoms, although he has been noted to be incontinent of urine. Recently, I am not sure exactly how chronic of a complaint that is. Plan to remove the Wilson catheter that was inserted in the ED. The patient is on ceftriaxone for antibiotic coverage while awaiting the urine culture. 4. Atrial flutter. Continue furosemide. 5. History of congestive heart failure. Per the report, the ejection fraction is intact. Plan to hold furosemide for now. 6. Hypertension. Continue metoprolol. 7. Anxiety and depression. The patient seems to have good insight into this problem and would most likely benefit from increased social engagement and support from family and friends. He states that his children do not come to see him that often and questions "perhaps they do not like me very much." Regardless, the patient will have consultation with social work and prior to discharge, we will reach out to [facility] regarding increased support as needed for him. 8. Deconditioning with lightheadedness. Plan to have a PT eval. 9. Code status is DNR. 10. Disposition to medical floor. TIME SPENT: Approximately 60 minutes were spent on the H and P of this patient , more than half time spent with the patient at the bedside reviewing the events leading up to this hospitalization, performing the physical examination, and [place] [id number]/CPS #: [id number] MIKE
[2017-02-15 07:01] LABS: BUN/Creatinine Ratio 16.3 (8-20); Calcium 8.8 mg/dL (8.6-10.3); EGFR African American 37.4 (>60); EGFR Non-African American 29.1 (>60); Potassium 3.8 mmol/L (3.5-5.0)
[2017-02-15] MEDS: Aspirin EC Low Dose* 81 MG TAB.EC PO SCH (09:15)
[2017-02-15] MEDS: Cyanocobalamin TAB* 500 MCG PO SCH (09:15)
[2017-02-15] MEDS: Calcitriol CAP* 0.25 MCG PO SCH (09:15)
[2017-02-15] MEDS: NS 0.9% 1000 ML* 1,000 ML IV SCH ×2 (09:15→19:30)
[2017-02-15] MEDS: Metoprolol Tartrate TAB* 25 MG PO SCH (09:15)
[2017-02-15] MEDS: Potassium Chlor TAB* 10 MEQ TAB.ER PO SCH (09:19)
[2017-02-15] MEDS: Magnesium Oxide TAB* 400 MG PO SCH ×2 (09:19→19:31)
[2017-02-15] MEDS: Omeprazole CAP* 20 MG PO SCH (09:20)
--- NOTE | 2017-02-15 15:16 | PN ---
Subjective Date of Service: 02/15/17 Interval History: Mr. Contreras denies complaint today. He has a good appetite and is tolerating oral intake well. Objective Active Medications: Aspirin (Aspirin Ec Low Dose*) 81 mg PO DAILY [facility]AC[facility] Calcitriol (Rocaltrol Cap*) 0.5 mcg PO DAILY [facility]AC[facility] Calcium Carbonate (Tums*) 500 mg PO BID PRN Cyanocobalamin (Vitamin B12 Tab*) 1,000 mcg PO DAILY [facility]AC[facility] Doxazosin Mesylate (Cardura Tab*) 1 mg PO BEDTIME [facility]ACIO Ceftriaxone Sodium 1,000 mg/ (Sodium Chloride) 50 mls @ 200 mls/hr IVPB Q24H [facility]ACIO Sodium Chloride (Ns 0.9% 1000 Ml*) 1,000 mls @ 100 mls/hr IV PER RATE H[facility]ACIO Magnesium Oxide (Magox 400 Tab*) 800 mg PO BID HORACIO Melatonin (Melatonin (Nf)) 3 mg PO BEDTIME PRN; Protocol Metoprolol Tartrate (Lopressor Tab*) 12.5 mg PO DAILY [facility]AC[facility] Omeprazole (Prilosec Cap*) 20 mg PO DAILY@0730 [facility]AC[facility] Potassium Chloride (Klor Con Er Tab*) 20 meq PO DAILY WITH [facility] Vital Signs 02/14/17 02/14/17 02/14/17 17:30 17:40 18:00 Temperature Pulse Rate 88 91 Respiratory 13 14 Rate Blood Pressure 96/74 107/72 (mmHg) O2 Sat by Pulse 95 94 Oximetry 02/14/17 02/14/17 02/14/17 18:04 20:00 23:21 Temperature 97.9 F 96.9 F Pulse Rate 95 82 90 Respiratory 14 20 16 Rate Blood Pressure 103/69 119/70 116/45 (mmHg) O2 Sat by Pulse 94 99 97 Oximetry 02/15/17 02/15/17 04:24 07:41 Temperature 98.0 F Pulse Rate 88 Respiratory 16 18 Rate Blood Pressure 113/65 (mmHg) O2 Sat by Pulse 95 Oximetry Oxygen Devices in Use Now: None Appearance: Elderly male sitting up in bed in NAD Respiratory: Symmetrical Chest Expansion and Respiratory Effort, Clear to Auscultation Cardiovascular: NL Sounds; No Murmurs; No JVD, No Edema Abdominal: NL Sounds; No Tenderness; No Distention Extremities: No Edema Skin: No Rash or Ulcers Neurological: Alert and Oriented x 3, NL Muscle Strength and Tone Nutrition: Taking PO's Result Diagrams: 02/14/17 15:54 02/15/17 06:39 Additional Lab and Data: Lab Results 02/14/17 02/14/17 02/14/17 Range/Units 15:54 15:54 15:54 WBC 9.0 (3.5-10.8) 10^3/ul RBC 5.00 (4.0-5.4) 10^6/ul Hgb 15.2 (14.0-18.0) g/dl Hct 47 (42-52) % MCV 93 (80-94) fL MCH 30 (27-31) pg MCHC 33 (31-36) g/dl RDW 14 (10.5-15) % Plt Count 203 (150-450) 10^3/ul MPV 8 (7.4-10.4) um3 Neut % (Auto) 80.4 (38-83) % Lymph % (Auto) 10.2 L (25-47) % [facility] % (Auto) 8.4 (1-9) % Eos % (Auto) 0.3 (0-6) % Baso % (Auto) 0.7 (0-2) % Absolute Neuts (auto) 7.2 (1.5-7.7) 10^3/ul Absolute Lymphs (auto) 0.9 L (1.0-4.8) 10^3/ul Absolute Monos (auto) 0.7 (0-0.8) 10^3/ul Absolute Eos (auto) 0 (0-0.6) 10^3/ul Absolute Basos (auto) 0.1 (0-0.2) 10^3/ul Absolute Nucleated RBC 0 10^3/ul Nucleated RBC % 0 INR (Anticoag Therapy) 0.97 (0.89-1.11) APTT 27.4 (26.0-36.3) seconds Sodium 131 L (133-145) mmol/L Potassium 4.8 (3.5-5.0) mmol/L Chloride 95 L (101-111) mmol/L Carbon Dioxide 28 (22-32) mmol/L Anion Gap 8 (2-11) mmol/L BUN 40 H (6-24) mg/dL Creatinine 2.69 H (0.67-1.17) mg/dL Est GFR ( Amer) 28.9 (>60) Est GFR (Non-Af Amer) 22.5 (>60) BUN/Creatinine Ratio 14.9 (8-20) Glucose 107 H (70-100) mg/dL Lactic Acid (0.5-2.0) mmol/L Calcium 10.1 (8.6-10.3) mg/dL Magnesium 2.1 (1.9-2.7) mg/dL Total Bilirubin 0.70 (0.2-1.0) mg/dL AST 20 (13-39) U/L ALT 17 (7-52) U/L Alkaline Phosphatase 59 (34-104) U/L Total Creatine Kinase 72 (10-223) U/L CK-MB (CK-2) 2.8 (0.6-6.3) ng/mL Troponin I 0.02 (<0.04) ng/mL C-Reactive Protein 21.27 H (< 5.00) mg/L B-Natriuretic Peptide ( - 100) pg/mL Total Protein 8.0 (6.4-8.9) g/dL Albumin 4.1 (3.2-5.2) g/dL Globulin 3.9 (2-4) g/dL Albumin/Globulin Ratio 1.1 (1-3) Lipase 21 (11.0-82.0) U/L TSH 1.01 (0.34-5.60) mcIU/mL 02/14/17/ Range/Units 15:54 15:54 WBC (3.5-10.8) 10^3/ul RBC (4.0-5.4) 10^6/ul Hgb (14.0-18.0) g/dl Hct (42-52) % MCV (80-94) fL MCH (27-31) pg MCHC (31-36) g/dl RDW (10.5-15) % Plt Count (150-450) 10^3/ul MPV (7.4-10.4) um3 Neut % (Auto) (38-83) % Lymph % (Auto) (25-47) % [facility] % (Auto) (1-9) % Eos % (Auto) (0-6) % Baso % (Auto) (0-2) % Absolute Neuts (auto) (1.5-7.7) 10^3/ul Absolute Lymphs (auto) (1.0-4.8) 10^3/ul Absolute Monos (auto) (0-0.8) 10^3/ul Absolute Eos (auto) (0-0.6) 10^3/ul Absolute Basos (auto) (0-0.2) 10^3/ul Absolute Nucleated RBC 10^3/ul Nucleated RBC % INR (Anticoag Therapy) (0.89-1.11) APTT (26.0-36.3) seconds Sodium (133-145) mmol/L Potassium (3.5-5.0) mmol/L Chloride (101-111) mmol/L Carbon Dioxide (22-32) mmol/L Anion Gap (2-11) mmol/L BUN (6-24) mg/dL Creatinine (0.67-1.17) mg/dL Est GFR ( Amer) (>60) Est GFR (Non-Af Amer) (>60) BUN/Creatinine Ratio (8-20) Glucose (70-100) mg/dL Lactic Acid 2.8 H* (0.5-2.0) mmol/L Calcium (8.6-10.3) mg/dL Magnesium (1.9-2.7) mg/dL Total Bilirubin (0.2-1.0) mg/dL AST (13-39) U/L ALT (7-52) U/L Alkaline Phosphatase (34-104) U/L Total Creatine Kinase (10-223) U/L CK-MB (CK-2) (0.6-6.3) ng/mL Troponin I (<0.04) ng/mL C-Reactive Protein (< 5.00) mg/L B-Natriuretic Peptide 121 H ( - 100) pg/mL Total Protein (6.4-8.9) g/dL Albumin (3.2-5.2) g/dL Globulin (2-4) g/dL Albumin/Globulin Ratio (1-3) Lipase (11.0-82.0) U/L TSH (0.34-5.60) mcIU/mL Microbiology and Other Data: Microbiology 02/14/17 17:32 Nasal Screen MRSA (PCR)(JOSE[facility]) - Final Nasal Mrsa Negative 02/14/17 17:28 Influenza Types A,B Antigen ([facility]SEMANUEL) - Final Nasopharyngeal Specimen received for Influenza A/B Molecular testing Assess/Plan/Problems-Billing Assessment: Mr. Contreras is an 89 yo male with a PMH of who was admitted on 02/14/17 with concern for orthostasis and dehydration. - Patient Problems (1) Orthostasis Comment: Orthostatic vitals pending. Patient denies lightheadedness with ambulation though nurse reports he was unsteady on his feet. (2) Atrial flutter Comment: Rate controlled. From previous admission, pt and family not sure why Coumadin was stoped in remote past, but the suspect it was due to unsteady gait. Continue metoprolol. (3) CKD (chronic kidney disease) stage 3, GFR 30-59 ml/min Comment: Creat at baseline (4) Dementia Current Visit: No Status: Chronic Priority: Medium Code(s): F03.90 - UNSPECIFIED DEMENTIA WITHOUT BEHAVIORAL DISTURBANCE SNOMED Code(s): 43080888 Comment: Plan for PT/OT eval to assess appropriateness for continued independent living. (5) Weight loss Comment: 26 lb weight loss, attribute to depression. Patient needs additional support outpatient vs antidepressant. Has tried lexapro but this was stopped. (6) DVT prophylaxis Comment: heparin sc Status and Disposition: Switch to inpatient. Plan for PT/OT eval. Anticipate patient will need increased support at discharge. Discharge planners following.
[2017-02-15] MEDS: Doxazosin TAB* 2 MG PO SCH (19:30)
[2017-02-15] MEDS: cefTRIAXone VIAL(*) 1,000 MG in NS 0.9% 50 ML* 50 ML IVPB SCH (19:30)
[2017-02-16] MEDS: Aspirin EC Low Dose* 81 MG TAB.EC PO SCH (09:06)
[2017-02-16] MEDS: Metoprolol Tartrate TAB* 25 MG PO SCH (09:07)
[2017-02-16] MEDS: Cyanocobalamin TAB* 500 MCG PO SCH (09:07)
[2017-02-16] MEDS: Calcitriol CAP* 0.25 MCG PO SCH (09:07)
[2017-02-16] MEDS: Potassium Chlor TAB* 10 MEQ TAB.ER PO SCH (09:07)
[2017-02-16] MEDS: Magnesium Oxide TAB* 400 MG PO SCH ×2 (09:08→20:20)
[2017-02-16] MEDS: Omeprazole CAP* 20 MG PO SCH (09:08)
--- NOTE | 2017-02-16 09:09 | PN ---
Subjective Date of Service: 02/16/17 Interval History: Pt is feeling ok. He states he has been eating better here than at [place]. When asked why he was not eating he stated he did not know. I asked specifically if he was not eating due to being lonely and he said "no." He denies any pain at this time but nursing notes that he can not raise his left arm. Objective Active Medications: Aspirin (Aspirin Ec Low Dose*) 81 mg PO DAILY [facility] Last Admin: 02/15/17 09:15 Dose: 81 mg Calcitriol (Rocaltrol Cap*) 0.5 mcg PO DAILY [facility] Last Admin: 02/15/17 09:15 Dose: 0.5 mcg Calcium Carbonate (Tums*) 500 mg PO BID PRN PRN Reason: INDIGESTION Cyanocobalamin (Vitamin B12 Tab*) 1,000 mcg PO DAILY [facility] Last Admin: 02/15/17 09:15 Dose: 1,000 mcg Doxazosin Mesylate (Cardura Tab*) 1 mg PO BEDTIME [facility] Last Admin: 02/15/17 19:30 Dose: 1 mg Ceftriaxone Sodium 1,000 mg/ (Sodium Chloride) 50 mls @ 200 mls/hr IVPB Q24H [facility] Last Admin: 02/15/17 19:30 Dose: 200 mls/hr Sodium Chloride (Ns 0.9% 1000 Ml*) 1,000 mls @ 100 mls/hr IV PER RATE [facility] Last Admin: 02/15/17 19:30 Dose: 100 mls/hr Magnesium Oxide (Magox 400 Tab*) 800 mg PO BID [facility] Last Admin: 02/15/17 19:31 Dose: 800 mg Melatonin (Melatonin (Nf)) 3 mg PO BEDTIME PRN; Protocol PRN Reason: SLEEP Last Admin: 02/14/17 22:30 Dose: 3 mg Metoprolol Tartrate (Lopressor Tab*) 12.5 mg PO DAILY [facility] Last Admin: 02/15/17 09:15 Dose: 12.5 mg Omeprazole (Prilosec Cap*) 20 mg PO DAILY@0730 [facility] Last Admin: 02/15/17 09:20 Dose: 20 mg Potassium Chloride (Klor Con Er Tab*) 20 meq PO DAILY WITH MEAL [facility] Last Admin: 02/15/17 09:19 Dose: 20 meq Vital Signs 02/15/17 02/15/17 02/15/17 15:44 15:55 15:57 Temperature 98.2 F Pulse Rate 59 67 84 Respiratory 16 Rate Blood Pressure 93/41 149/50 138/104 (mmHg) O2 Sat by Pulse 96 Oximetry 02/15/17 02/15/17 02/15/17 19:48 19:59 23:57 Temperature 98.1 F 98.2 F Pulse Rate 61 59 Respiratory 16 16 14 Rate Blood Pressure 124/68 145/71 (mmHg) O2 Sat by Pulse 98 97 Oximetry 02/16/17 02:19 Temperature 97.9 F Pulse Rate 65 Respiratory 15 Rate Blood Pressure 147/81 (mmHg) O2 Sat by Pulse 94 Oximetry Oxygen Devices in Use Now: None Appearance: Elderly male sitting up in bed, eating breakfast, NAD Eyes: No Scleral Icterus Ears/Nose/Mouth/Throat: Mucous Membranes Moist Respiratory: Symmetrical Chest Expansion and Respiratory Effort, Clear to Auscultation Cardiovascular: NL Sounds; No Murmurs; No JVD, RRR, No Edema Abdominal: NL Sounds; No Tenderness; No Distention Extremities: No Clubbing, Cyanosis Skin: No Rash or Ulcers, No Nodules or Sclerosis, - - scabbed over lesion anterior L lower leg Neurological: Alert and Oriented x 3 Result Diagrams: 02/14/17 15:54 02/15/17 06:39 Additional Lab and Data: Lab Results 02/14/17 02/14/17 02/14/17 Range/Units 15:54 15:54 15:54 WBC 9.0 (3.5-10.8) 10^3/ul RBC 5.00 (4.0-5.4) 10^6/ul Hgb 15.2 (14.0-18.0) g/dl Hct 47 (42-52) % MCV 93 (80-94) fL MCH 30 (27-31) pg MCHC 33 (31-36) g/dl RDW 14 (10.5-15) % Plt Count 203 (150-450) 10^3/ul MPV 8 (7.4-10.4) um3 Neut % (Auto) 80.4 (38-83) % Lymph % (Auto) 10.2 L (25-47) % [place] % (Auto) 8.4 (1-9) % Eos % (Auto) 0.3 (0-6) % Baso % (Auto) 0.7 (0-2) % Absolute Neuts (auto) 7.2 (1.5-7.7) 10^3/ul Absolute Lymphs (auto) 0.9 L (1.0-4.8) 10^3/ul Absolute Monos (auto) 0.7 (0-0.8) 10^3/ul Absolute Eos (auto) 0 (0-0.6) 10^3/ul Absolute Basos (auto) 0.1 (0-0.2) 10^3/ul Absolute Nucleated RBC 0 10^3/ul Nucleated RBC % 0 INR (Anticoag Therapy) 0.97 (0.89-1.11) APTT 27.4 (26.0-36.3) seconds Sodium 131 L (133-145) mmol/L Potassium 4.8 (3.5-5.0) mmol/L Chloride 95 L (101-111) mmol/L Carbon Dioxide 28 (22-32) mmol/L Anion Gap 8 (2-11) mmol/L BUN 40 H (6-24) mg/dL Creatinine 2.69 H (0.67-1.17) mg/dL Est GFR ( Amer) 28.9 (>60) Est GFR (Non-Af Amer) 22.5 (>60) BUN/Creatinine Ratio 14.9 (8-20) Glucose 107 H (70-100) mg/dL Lactic Acid (0.5-2.0) mmol/L Calcium 10.1 (8.6-10.3) mg/dL Magnesium 2.1 (1.9-2.7) mg/dL Total Bilirubin 0.70 (0.2-1.0) mg/dL AST 20 (13-39) U/L ALT 17 (7-52) U/L Alkaline Phosphatase 59 (34-104) U/L Total Creatine Kinase 72 (10-223) U/L CK-MB (CK-2) 2.8 (0.6-6.3) ng/mL Troponin I 0.02 (<0.04) ng/mL C-Reactive Protein 21.27 H (< 5.00) mg/L B-Natriuretic Peptide ( - 100) pg/mL Total Protein 8.0 (6.4-8.9) g/dL Albumin 4.1 (3.2-5.2) g/dL Globulin 3.9 (2-4) g/dL Albumin/Globulin Ratio 1.1 (1-3) Lipase 21 (11.0-82.0) U/L TSH 1.01 (0.34-5.60) mcIU/mL 02/14/17 02/14/17 Range/Units 15:54 15:54 WBC (3.5-10.8) 10^3/ul RBC (4.0-5.4) 10^6/ul Hgb (14.0-18.0) g/dl Hct (42-52) % MCV (80-94) fL MCH (27-31) pg MCHC (31-36) g/dl RDW (10.5-15) % Plt Count (150-450) 10^3/ul MPV (7.4-10.4) um3 Neut % (Auto) (38-83) % Lymph % (Auto) (25-47) % [place] % (Auto) (1-9) % Eos % (Auto) (0-6) % Baso % (Auto) (0-2) % Absolute Neuts (auto) (1.5-7.7) 10^3/ul Absolute Lymphs (auto) (1.0-4.8) 10^3/ul Absolute Monos (auto) (0-0.8) 10^3/ul Absolute Eos (auto) (0-0.6) 10^3/ul Absolute Basos (auto) (0-0.2) 10^3/ul Absolute Nucleated RBC 10^3/ul Nucleated RBC % INR (Anticoag Therapy) (0.89-1.11) APTT (26.0-36.3) seconds Sodium (133-145) mmol/L Potassium (3.5-5.0) mmol/L Chloride (101-111) mmol/L Carbon Dioxide (22-32) mmol/L Anion Gap (2-11) mmol/L BUN (6-24) mg/dL Creatinine (0.67-1.17) mg/dL Est GFR ( Amer) (>60) Est GFR (Non-Af Amer) (>60) BUN/Creatinine Ratio (8-20) Glucose (70-100) mg/dL Lactic Acid 2.8 H* (0.5-2.0) mmol/L Calcium (8.6-10.3) mg/dL Magnesium (1.9-2.7) mg/dL Total Bilirubin (0.2-1.0) mg/dL AST (13-39) U/L ALT (7-52) U/L Alkaline Phosphatase (34-104) U/L Total Creatine Kinase (10-223) U/L CK-MB (CK-2) (0.6-6.3) ng/mL Troponin I (<0.04) ng/mL C-Reactive Protein (< 5.00) mg/L B-Natriuretic Peptide 121 H ( - 100) pg/mL Total Protein (6.4-8.9) g/dL Albumin (3.2-5.2) g/dL Globulin (2-4) g/dL Albumin/Globulin Ratio (1-3) Lipase (11.0-82.0) U/L TSH (0.34-5.60) mcIU/mL Microbiology and Other Data: Microbiology 02/14/17 17:32 Nasal Screen MRSA (PCR)([facility]) - Final Nasal Mrsa Negative 02/14/17 17:28 Influenza Types A,B Antigen ([facility]SE[facility]UEL) - Final Nasopharyngeal Specimen received for Influenza A/B Molecular testing Assess/Plan/Problems-Billing Mr. Contreras is an 89 yo male with a PMHx of atrial flutter, stage IV CKD, HTN and dementia who was admitted on 02/14/17 with concern for orthostasis and dehydration. - Patient Problems (1) Orthostasis Current Visit: Yes Status: Acute Code(s): I95.1 - ORTHOSTATIC HYPOTENSION SNOMED Code(s): 501163753 Comment: Orthostatic vitals done yesterday showed his HR to increase by 25 upon standing but his blood pressure actually improved with standing. Symptomatically however he felt slightly "woozy." Stop IVF. Monitor for symptoms. PT eval pending. It is unclear if the patient is appropriate to go back to independent living at this time. On admission there were concerns for UTI however I do not suspect this to be the case. Stop ceftriaxone. (2) Weight loss Current Visit: Yes Status: Acute Comment: Likely related to depression but today he was not able to express this to me. Would restart antidepressant and give a full 6 weeks to see if he has any improvement. Will try remeron that will also possibly help his appetite. (3) Atrial flutter Current Visit: Yes Status: Acute Code(s): I48.92 - UNSPECIFIED ATRIAL FLUTTER SNOMED Code(s): 9154821 Comment: HR is controlled. Continue metoprolol. (4) CKD (chronic kidney disease) stage 3, GFR 30-59 ml/min Current Visit: Yes Status: Acute Code(s): N18.3 - CHRONIC KIDNEY DISEASE, STAGE 3 (MODERATE) SNOMED Code(s): 330543437 Comment: Creatinine is at baseline. Stop IVF. (5) Dementia Current Visit: Yes Status: Chronic Code(s): F03.90 - UNSPECIFIED DEMENTIA WITHOUT BEHAVIORAL DISTURBANCE SNOMED Code(s): 20924886 Comment: Diagnosis noted. (6) DVT prophylaxis Current Visit: Yes Status: Acute Code(s): TKB4147 - SNOMED Code(s): 460911493 Comment: SQ heparin (7) DNR (do not resuscitate) Current Visit: Yes Status: Acute
[2017-02-16 14:30] LABS: Hematocrit 40 % (42-52); Mean Corpuscular HGB Conc 32 g/dl (31-36); Mean Corpuscular Hemoglobin 30 pg (27-31); Mean Corpuscular Volume 94 fL (80-94); Mean Platelet Volume 8 um3 (7.4-10.4); Red Blood Count 4.27 10^6/ul (4.0-5.4); Red Cell Distribution Width 14 % (10.5-15); White Blood Count 6.7 10^3/ul (3.5-10.8)
[2017-02-16 14:47] LABS: EGFR African American 44.5 (>60); EGFR Non-African American 34.6 (>60)
[2017-02-16] MEDS: Heparin VIAL(*) 5000 UNITS/ML VIAL (FIVE THOUSAND) SUBCUT SCH ×2 (15:57→22:00)
[2017-02-16] MEDS ORDERED: Ondansetron INJ* 2 MG/ML VIAL IV PRN (19:33)
[2017-02-16] MEDS ORDERED: NS 0.9% 1000 ML* 1,000 ML IV SCH (19:45)
[2017-02-16] MEDS: Doxazosin TAB* 2 MG PO SCH (20:19)
[2017-02-16] MEDS: Mirtazapine TAB* 15 MG PO SCH (20:20)
[2017-02-17] MEDS: Heparin VIAL(*) 5000 UNITS/ML VIAL (FIVE THOUSAND) SUBCUT SCH ×3 (05:59→22:03)
[2017-02-17] MEDS: Potassium Chlor TAB* 10 MEQ TAB.ER PO SCH (08:48)
[2017-02-17] MEDS: Omeprazole CAP* 20 MG PO SCH (08:48)
[2017-02-17] MEDS: Magnesium Oxide TAB* 400 MG PO SCH ×2 (08:49→22:02)
[2017-02-17] MEDS: Cyanocobalamin TAB* 500 MCG PO SCH (08:49)
[2017-02-17] MEDS: Aspirin EC Low Dose* 81 MG TAB.EC PO SCH (08:49)
[2017-02-17] MEDS: Calcitriol CAP* 0.25 MCG PO SCH (08:49)
[2017-02-17] MEDS: Metoprolol Tartrate TAB* 25 MG PO SCH (08:49)
--- NOTE | 2017-02-17 11:17 | PN ---
Subjective Date of Service: 02/17/17 Interval History: Pt is feeling ok. He denies any pain or SOB. When I ask him about rehab he does not respond other than repeating "rehab" multiple times. Objective Active Medications: Aspirin (Aspirin Ec Low Dose*) 81 mg PO DAILY [facility] Last Admin: 02/17/17 08:49 Dose: 81 mg Calcitriol (Rocaltrol Cap*) 0.5 mcg PO DAILY [facility] Last Admin: 02/17/17 08:49 Dose: 0.5 mcg Calcium Carbonate (Tums*) 500 mg PO BID PRN PRN Reason: INDIGESTION Cyanocobalamin (Vitamin B12 Tab*) 1,000 mcg PO DAILY [facility] Last Admin: 02/17/17 08:49 Dose: 1,000 mcg Doxazosin Mesylate (Cardura Tab*) 1 mg PO BEDTIME [facility] Last Admin: 02/16/17 20:19 Dose: 1 mg Heparin Sodium (Porcine) (Heparin Vial(*)) 5,000 units SUBCUT Q8HR [facility] Last Admin: 02/17/17 05:59 Dose: 5,000 units Sodium Chloride (Ns 0.9% 1000 Ml*) 1,000 mls @ 100 mls/hr IV PER RATE [facility] Last Admin: 02/16/17 19:49 Dose: 100 mls/hr Magnesium Oxide (Magox 400 Tab*) 800 mg PO BID [facility] Last Admin: 02/17/17 08:49 Dose: 800 mg Melatonin (Melatonin (Nf)) 3 mg PO BEDTIME PRN; Protocol PRN Reason: SLEEP Last Admin: 02/14/17 22:30 Dose: 3 mg Metoprolol Tartrate (Lopressor Tab*) 12.5 mg PO DAILY [facility] Last Admin: 02/17/17 08:49 Dose: 12.5 mg Mirtazapine (Remeron Tab*) 15 mg PO BEDTIME [facility] Last Admin: 02/16/17 20:20 Dose: 15 mg Omeprazole (Prilosec Cap*) 20 mg PO DAILY@0730 [facility] Last Admin: 02/17/17 08:48 Dose: 20 mg Ondansetron HCl (Zofran Inj*) 4 mg IV Q4H PRN PRN Reason: NAUSEA Last Admin: 02/16/17 19:48 Dose: 4 mg Potassium Chloride (Klor Con Er Tab*) 20 meq PO DAILY WITH MEAL [facility] Last Admin: 02/17/17 08:48 Dose: 20 meq Vital Signs 02/16/17 02/16/17 02/16/17 19:23 20:00 23:25 Temperature 97.6 F 98.5 F Pulse Rate 69 65 Respiratory 20 18 21 Rate Blood Pressure 151/73 134/70 (mmHg) O2 Sat by Pulse 96 97 Oximetry 02/17/17 07:13 Temperature 96.9 F Pulse Rate 63 Respiratory 16 Rate Blood Pressure 139/70 (mmHg) O2 Sat by Pulse 96 Oximetry Oxygen Devices in Use Now: None Appearance: Elderly male sitting in a chair, NAD Eyes: No Scleral Icterus Ears/Nose/Mouth/Throat: Mucous Membranes Moist Respiratory: Symmetrical Chest Expansion and Respiratory Effort, Clear to Auscultation - with bibasilar crackles Cardiovascular: NL Sounds; No Murmurs; No JVD, RRR, No Edema Abdominal: NL Sounds; No Tenderness; No Distention Extremities: No Clubbing, Cyanosis Skin: No Rash or Ulcers, No Nodules or Sclerosis Neurological: Alert and Oriented x 3 Result Diagrams: 02/16/17 14:11 02/16/17 14:11 Additional Lab and Data: Lab Results 02/14/17 02/14/17 02/14/17 Range/Units 15:54 15:54 15:54 WBC 9.0 (3.5-10.8) 10^3/ul RBC 5.00 (4.0-5.4) 10^6/ul Hgb 15.2 (14.0-18.0) g/dl Hct 47 (42-52) % MCV 93 (80-94) fL MCH 30 (27-31) pg MCHC 33 (31-36) g/dl RDW 14 (10.5-15) % Plt Count 203 (150-450) 10^3/ul MPV 8 (7.4-10.4) um3 Neut % (Auto) 80.4 (38-83) % Lymph % (Auto) 10.2 L (25-47) % [place] % (Auto) 8.4 (1-9) % Eos % (Auto) 0.3 (0-6) % Baso % (Auto) 0.7 (0-2) % Absolute Neuts (auto) 7.2 (1.5-7.7) 10^3/ul Absolute Lymphs (auto) 0.9 L (1.0-4.8) 10^3/ul Absolute Monos (auto) 0.7 (0-0.8) 10^3/ul Absolute Eos (auto) 0 (0-0.6) 10^3/ul Absolute Basos (auto) 0.1 (0-0.2) 10^3/ul Absolute Nucleated RBC 0 10^3/ul Nucleated RBC % 0 INR (Anticoag Therapy) 0.97 (0.89-1.11) APTT 27.4 (26.0-36.3) seconds Sodium 131 L (133-145) mmol/L Potassium 4.8 (3.5-5.0) mmol/L Chloride 95 L (101-111) mmol/L Carbon Dioxide 28 (22-32) mmol/L Anion Gap 8 (2-11) mmol/L BUN 40 H (6-24) mg/dL Creatinine 2.69 H (0.67-1.17) mg/dL Est GFR ( Amer) 28.9 (>60) Est GFR (Non-Af Amer) 22.5 (>60) BUN/Creatinine Ratio 14.9 (8-20) Glucose 107 H (70-100) mg/dL Lactic Acid (0.5-2.0) mmol/L Calcium 10.1 (8.6-10.3) mg/dL Magnesium 2.1 (1.9-2.7) mg/dL Total Bilirubin 0.70 (0.2-1.0) mg/dL AST 20 (13-39) U/L ALT 17 (7-52) U/L Alkaline Phosphatase 59 (34-104) U/L Total Creatine Kinase 72 (10-223) U/L CK-MB (CK-2) 2.8 (0.6-6.3) ng/mL Troponin I 0.02 (<0.04) ng/mL C-Reactive Protein 21.27 H (< 5.00) mg/L B-Natriuretic Peptide ( - 100) pg/mL Total Protein 8.0 (6.4-8.9) g/dL Albumin 4.1 (3.2-5.2) g/dL Globulin 3.9 (2-4) g/dL Albumin/Globulin Ratio 1.1 (1-3) Lipase 21 (11.0-82.0) U/L TSH 1.01 (0.34-5.60) mcIU/mL 02/14/17 02/14/17 Range/Units 15:54 15:54 WBC (3.5-10.8) 10^3/ul RBC (4.0-5.4) 10^6/ul Hgb (14.0-18.0) g/dl Hct (42-52) % MCV (80-94) fL MCH (27-31) pg MCHC (31-36) g/dl RDW (10.5-15) % Plt Count (150-450) 10^3/ul MPV (7.4-10.4) um3 Neut % (Auto) (38-83) % Lymph % (Auto) (25-47) % [place] % (Auto) (1-9) % Eos % (Auto) (0-6) % Baso % (Auto) (0-2) % Absolute Neuts (auto) (1.5-7.7) 10^3/ul Absolute Lymphs (auto) (1.0-4.8) 10^3/ul Absolute Monos (auto) (0-0.8) 10^3/ul Absolute Eos (auto) (0-0.6) 10^3/ul Absolute Basos (auto) (0-0.2) 10^3/ul Absolute Nucleated RBC 10^3/ul Nucleated RBC % INR (Anticoag Therapy) (0.89-1.11) APTT (26.0-36.3) seconds Sodium (133-145) mmol/L Potassium (3.5-5.0) mmol/L Chloride (101-111) mmol/L Carbon Dioxide (22-32) mmol/L Anion Gap (2-11) mmol/L BUN (6-24) mg/dL Creatinine (0.67-1.17) mg/dL Est GFR ( Amer) (>60) Est GFR (Non-Af Amer) (>60) BUN/Creatinine Ratio (8-20) Glucose (70-100) mg/dL Lactic Acid 2.8 H* (0.5-2.0) mmol/L Calcium (8.6-10.3) mg/dL Magnesium (1.9-2.7) mg/dL Total Bilirubin (0.2-1.0) mg/dL AST (13-39) U/L ALT (7-52) U/L Alkaline Phosphatase (34-104) U/L Total Creatine Kinase (10-223) U/L CK-MB (CK-2) (0.6-6.3) ng/mL Troponin I (<0.04) ng/mL C-Reactive Protein (< 5.00) mg/L B-Natriuretic Peptide 121 H ( - 100) pg/mL Total Protein (6.4-8.9) g/dL Albumin (3.2-5.2) g/dL Globulin (2-4) g/dL Albumin/Globulin Ratio (1-3) Lipase (11.0-82.0) U/L TSH (0.34-5.60) mcIU/mL Microbiology and Other Data: Microbiology 02/14/17 17:32 Nasal Screen MRSA (PCR)([facility]) - Final Nasal Mrsa Negative 02/14/17 17:28 Influenza Types A,B Antigen ([facility]SE[facility]UEL) - Final Nasopharyngeal Specimen received for Influenza A/B Molecular testing Assess/Plan/Problems-Billing Mr. Contreras is an 89 yo male with a PMHx of atrial flutter, stage IV CKD, HTN and dementia who was admitted on 02/14/17 with concern for orthostasis and dehydration. - Patient Problems (1) Orthostasis Current Visit: Yes Status: Acute Code(s): I95.1 - ORTHOSTATIC HYPOTENSION SNOMED Code(s): 326124729 Comment: Stop IVF. PT eval states that he would need 24hr supervision with mobility upon discharge. Await rehab placement. (2) Weight loss Current Visit: Yes Status: Acute Comment: Likely related to depression but today he was not able to express this to me. Continue remeron at bedtime. He needs a full 6 weeks of therapy to determine if he is having any benefit. (3) Atrial flutter Current Visit: Yes Status: Acute Code(s): I48.92 - UNSPECIFIED ATRIAL FLUTTER SNOMED Code(s): 3615453 Comment: HR is controlled. Continue metoprolol. (4) CKD (chronic kidney disease) stage 3, GFR 30-59 ml/min Current Visit: Yes Status: Acute Code(s): N18.3 - CHRONIC KIDNEY DISEASE, STAGE 3 (MODERATE) SNOMED Code(s): 144095826 Comment: Creatinine is at baseline. Stop IVF. (5) Dementia Current Visit: Yes Status: Chronic Code(s): F03.90 - UNSPECIFIED DEMENTIA WITHOUT BEHAVIORAL DISTURBANCE SNOMED Code(s): 02259512 Comment: Diagnosis noted. (6) DVT prophylaxis Current Visit: Yes Status: Acute Code(s): SIL6122 - SNOMED Code(s): 962483378 Comment: SQ heparin (7) DNR (do not resuscitate) Current Visit: Yes Status: Acute Status and Disposition: ? STR
[2017-02-17] MEDS: Doxazosin TAB* 2 MG PO SCH (22:02)
[2017-02-17] MEDS: Mirtazapine TAB* 15 MG PO SCH (22:02)
[2017-02-18] MEDS: Omeprazole CAP* 20 MG PO SCH (06:08)
[2017-02-18] MEDS: Heparin VIAL(*) 5000 UNITS/ML VIAL (FIVE THOUSAND) SUBCUT SCH (06:09)
--- NOTE | 2017-02-18 07:02 | PN ---
Subjective Date of Service: 02/18/17 Interval History: Pt is feeling well. He denies any pain or SOB. He states he had a bout of diarrhea last night. He thinks he is eating better than he was at [place]. He states "it is coming around." He is agreeable to going to rehab today. Objective Active Medications: Aspirin (Aspirin Ec Low Dose*) 81 mg PO DAILY [facility] Last Admin: 02/17/17 08:49 Dose: 81 mg Calcitriol (Rocaltrol Cap*) 0.5 mcg PO DAILY [facility] Last Admin: 02/17/17 08:49 Dose: 0.5 mcg Calcium Carbonate (Tums*) 500 mg PO BID PRN PRN Reason: INDIGESTION Cyanocobalamin (Vitamin B12 Tab*) 1,000 mcg PO DAILY [facility] Last Admin: 02/17/17 08:49 Dose: 1,000 mcg Doxazosin Mesylate (Cardura Tab*) 1 mg PO BEDTIME [facility] Last Admin: 02/17/17 22:02 Dose: 1 mg Heparin Sodium (Porcine) (Heparin Vial(*)) 5,000 units SUBCUT Q8HR [facility] Last Admin: 02/18/17 06:09 Dose: 5,000 units Magnesium Oxide (Magox 400 Tab*) 800 mg PO BID [facility] Last Admin: 02/17/17 22:02 Dose: 800 mg Metoprolol Tartrate (Lopressor Tab*) 12.5 mg PO DAILY [facility] Last Admin: 02/17/17 08:49 Dose: 12.5 mg Mirtazapine (Remeron Tab*) 15 mg PO BEDTIME [facility] Last Admin: 02/17/17 22:02 Dose: 15 mg Omeprazole (Prilosec Cap*) 20 mg PO DAILY@0730 [facility] Last Admin: 02/18/17 06:08 Dose: 20 mg Ondansetron HCl (Zofran Inj*) 4 mg IV Q4H PRN PRN Reason: NAUSEA Last Admin: 02/16/17 19:48 Dose: 4 mg Potassium Chloride (Klor Con Er Tab*) 20 meq PO DAILY WITH MEAL [facility] Last Admin: 02/17/17 08:48 Dose: 20 meq Vital Signs 02/17/17 02/17/17 02/17/17 07:13 08:00 15:20 Temperature 96.9 F 97.5 F Pulse Rate 63 57 Respiratory 16 18 18 Rate Blood Pressure 139/70 117/58 (mmHg) O2 Sat by Pulse 96 98 Oximetry 02/17/17 02/18/17 23:56 00:27 Temperature 97.9 F Pulse Rate 68 Respiratory 18 18 Rate Blood Pressure 113/51 (mmHg) O2 Sat by Pulse 95 Oximetry Oxygen Devices in Use Now: None Appearance: Elderly male lying in bed, NAD Eyes: No Scleral Icterus Ears/Nose/Mouth/Throat: Mucous Membranes Moist Respiratory: Symmetrical Chest Expansion and Respiratory Effort, Clear to Auscultation Cardiovascular: NL Sounds; No Murmurs; No JVD, RRR, No Edema Abdominal: NL Sounds; No Tenderness; No Distention Extremities: No Clubbing, Cyanosis Skin: No Rash or Ulcers, No Nodules or Sclerosis Neurological: Alert and Oriented x 3 Result Diagrams: 02/16/17 14:11 02/16/17 14:11 Additional Lab and Data: Lab Results 02/14/17 02/14/17 02/14/17 Range/Units 15:54 15:54 15:54 WBC 9.0 (3.5-10.8) 10^3/ul RBC 5.00 (4.0-5.4) 10^6/ul Hgb 15.2 (14.0-18.0) g/dl Hct 47 (42-52) % MCV 93 (80-94) fL MCH 30 (27-31) pg MCHC 33 (31-36) g/dl RDW 14 (10.5-15) % Plt Count 203 (150-450) 10^3/ul MPV 8 (7.4-10.4) um3 Neut % (Auto) 80.4 (38-83) % Lymph % (Auto) 10.2 L (25-47) % [place] % (Auto) 8.4 (1-9) % Eos % (Auto) 0.3 (0-6) % Baso % (Auto) 0.7 (0-2) % Absolute Neuts (auto) 7.2 (1.5-7.7) 10^3/ul Absolute Lymphs (auto) 0.9 L (1.0-4.8) 10^3/ul Absolute Monos (auto) 0.7 (0-0.8) 10^3/ul Absolute Eos (auto) 0 (0-0.6) 10^3/ul Absolute Basos (auto) 0.1 (0-0.2) 10^3/ul Absolute Nucleated RBC 0 10^3/ul Nucleated RBC % 0 INR (Anticoag Therapy) 0.97 (0.89-1.11) APTT 27.4 (26.0-36.3) seconds Sodium 131 L (133-145) mmol/L Potassium 4.8 (3.5-5.0) mmol/L Chloride 95 L (101-111) mmol/L Carbon Dioxide 28 (22-32) mmol/L Anion Gap 8 (2-11) mmol/L BUN 40 H (6-24) mg/dL Creatinine 2.69 H (0.67-1.17) mg/dL Est GFR ( Amer) 28.9 (>60) Est GFR (Non-Af Amer) 22.5 (>60) BUN/Creatinine Ratio 14.9 (8-20) Glucose 107 H (70-100) mg/dL Lactic Acid (0.5-2.0) mmol/L Calcium 10.1 (8.6-10.3) mg/dL Magnesium 2.1 (1.9-2.7) mg/dL Total Bilirubin 0.70 (0.2-1.0) mg/dL AST 20 (13-39) U/L ALT 17 (7-52) U/L Alkaline Phosphatase 59 (34-104) U/L Total Creatine Kinase 72 (10-223) U/L CK-MB (CK-2) 2.8 (0.6-6.3) ng/mL Troponin I 0.02 (<0.04) ng/mL C-Reactive Protein 21.27 H (< 5.00) mg/L B-Natriuretic Peptide ( - 100) pg/mL Total Protein 8.0 (6.4-8.9) g/dL Albumin 4.1 (3.2-5.2) g/dL Globulin 3.9 (2-4) g/dL Albumin/Globulin Ratio 1.1 (1-3) Lipase 21 (11.0-82.0) U/L TSH 1.01 (0.34-5.60) mcIU/mL 02/14/17 02/14/17 Range/Units 15:54 15:54 WBC (3.5-10.8) 10^3/ul RBC (4.0-5.4) 10^6/ul Hgb (14.0-18.0) g/dl Hct (42-52) % MCV (80-94) fL MCH (27-31) pg MCHC (31-36) g/dl RDW (10.5-15) % Plt Count (150-450) 10^3/ul MPV (7.4-10.4) um3 Neut % (Auto) (38-83) % Lymph % (Auto) (25-47) % Republic % (Auto) (1-9) % Eos % (Auto) (0-6) % Baso % (Auto) (0-2) % Absolute Neuts (auto) (1.5-7.7) 10^3/ul Absolute Lymphs (auto) (1.0-4.8) 10^3/ul Absolute Monos (auto) (0-0.8) 10^3/ul Absolute Eos (auto) (0-0.6) 10^3/ul Absolute Basos (auto) (0-0.2) 10^3/ul Absolute Nucleated RBC 10^3/ul Nucleated RBC % INR (Anticoag Therapy) (0.89-1.11) APTT (26.0-36.3) seconds Sodium (133-145) mmol/L Potassium (3.5-5.0) mmol/L Chloride (101-111) mmol/L Carbon Dioxide (22-32) mmol/L Anion Gap (2-11) mmol/L BUN (6-24) mg/dL Creatinine (0.67-1.17) mg/dL Est GFR ( Amer) (>60) Est GFR (Non-Af Amer) (>60) BUN/Creatinine Ratio (8-20) Glucose (70-100) mg/dL Lactic Acid 2.8 H* (0.5-2.0) mmol/L Calcium (8.6-10.3) mg/dL Magnesium (1.9-2.7) mg/dL Total Bilirubin (0.2-1.0) mg/dL AST (13-39) U/L ALT (7-52) U/L Alkaline Phosphatase (34-104) U/L Total Creatine Kinase (10-223) U/L CK-MB (CK-2) (0.6-6.3) ng/mL Troponin I (<0.04) ng/mL C-Reactive Protein (< 5.00) mg/L B-Natriuretic Peptide 121 H ( - 100) pg/mL Total Protein (6.4-8.9) g/dL Albumin (3.2-5.2) g/dL Globulin (2-4) g/dL Albumin/Globulin Ratio (1-3) Lipase (11.0-82.0) U/L TSH (0.34-5.60) mcIU/mL Microbiology and Other Data: Microbiology 02/14/17 17:32 Nasal Screen MRSA (PCR)([facility]) - Final Nasal Mrsa Negative 02/14/17 17:28 Influenza Types A,B Antigen ([facility]) - Final Nasopharyngeal Specimen received for Influenza A/B Molecular testing Assess/Plan/Problems-Billing Mr. Contreras is an 89 yo male with a PMHx of atrial flutter, stage IV CKD, HTN and dementia who was admitted on 02/14/17 with concern for orthostasis and dehydration. - Patient Problems (1) Orthostasis Current Visit: Yes Status: Acute Code(s): I95.1 - ORTHOSTATIC HYPOTENSION SNOMED Code(s): 224081991 Comment: Plan is for STR at [facility] today. No further complaints of "wooziness" though the patient is not the best historian. I think his orthostasis that was clinically present on admission was likely related to volume depletion from not eating well at [place]. (2) Weight loss Current Visit: Yes Status: Acute Comment: Likely related to depression but today he was not able to express this to me. Continue remeron at bedtime. He needs a full 6 weeks of therapy to determine if he is having any benefit. (3) Atrial flutter Current Visit: Yes Status: Acute Code(s): I48.92 - UNSPECIFIED ATRIAL FLUTTER SNOMED Code(s): 7224917 Comment: HR is controlled. Continue metoprolol. (4) CKD (chronic kidney disease) stage 3, GFR 30-59 ml/min Current Visit: Yes Status: Acute Code(s): N18.3 - CHRONIC KIDNEY DISEASE, STAGE 3 (MODERATE) SNOMED Code(s): 559051763 Comment: Creatinine is at baseline. (5) Dementia Current Visit: Yes Status: Chronic Code(s): F03.90 - UNSPECIFIED DEMENTIA WITHOUT BEHAVIORAL DISTURBANCE SNOMED Code(s): 01304696 Comment: Diagnosis noted. (6) DVT prophylaxis Current Visit: Yes Status: Acute Code(s): AWL7027 - SNOMED Code(s): 229873889 Comment: SQ heparin (7) DNR (do not resuscitate) Current Visit: Yes Status: Acute Status and Disposition: d/c to [facility]
--- NOTE | 2017-02-18 07:48 | DS ---
DISCHARGE SUMMARY: DATE OF ADMISSION: 02/14/17 DATE OF DISCHARGE: 02/18/17 PRIMARY CARE PROVIDER: IA provider. PRINCIPAL DIAGNOSES: 1. Depression. 2. Weight loss, likely secondary to depression. 3. Orthostasis. SECONDARY DIAGNOSES: 1. Stage IV chronic kidney disease. 2. Chronic pain. 3. Atrial flutter. 4. Hypertension. 5. GERD. 6. Dementia. DISCHARGE MEDICATIONS: 1. Calcium carbonate 500 mg p.o. b.i.d. p.r.n. indigestion. 2. Tylenol 650 mg p.o. q. 6h. p.r.n. pain. 3. Doxazosin 1 mg p.o. q.h.s. 4. Metoprolol tartrate 12.5 mg p.o. daily. 5. Magnesium oxide 800 mg p.o. b.i.d. 6. Vitamin B12 1000 micrograms p.o. daily. 7. Omeprazole 20 mg p.o. daily. 8. Calcitriol 0.5 micrograms p.o. daily. 9. Aspirin 81 mg p.o. daily. 10. Tramadol 50 mg p.o. b.i.d. 11. Potassium chloride 20 milliequivalents p.o. daily. 12. Remeron 15 mg p.o. q.h.s. (new). HOSPITAL COURSE: Mr. Contreras is an 89-year-old male who was sent to the Emergency Room from [facility] with complaints of weight loss and low blood pressure. The patient was noted to become more withdrawn at [facility] after a friend was transferred to a different facility. Staff at [facility] reported that he does not leave his room and that he has been refusing to come out to eat. The patient actually confirmed this on admission, stated he has had much less interest in anything due to his friend leaving. He had been started on Lexapro at one point, however no improvement was seen and, therefore, this was discontinued. The patient lost approximately 26 pounds in approximately two months. On the day of admission, he was noted to have low blood pressure and complaining of light-headedness and, therefore, referred to the Emergency Room for evaluation. The patient was admitted for evaluation of hypotension. His blood pressure was in the 90s and at times in the 70s initially upon presentation. In addition to this, he was also orthostatic. It was felt that the hypotension and orthostasis were likely related to poor oral intake and volume depletion. The patient was hydrated aggressively with IV fluids. His appetite has improved since being in the hospital, though he still has periods of time where he does not eat a full meal. I did feel it was necessary to start an antidepressant given his several months' worth of depression and poor appetite. I decided to start Remeron which may carpenter helper maintenance in sleep and appetite, as well as the depression. The patient has had two doses of this and seems to be tolerating it so far. The patient initially had been complaining of wooziness upon standing, however it does not appear to be the case now. He is deconditioned and short term rehab has been recommended. The patient will be transferred to [facility] today for subacute rehab. In terms of the patient 's chronic medical conditions, he has been maintained on his usual home medication regimen except for his Lasix due to the volume depletion noted on admission. If it appears that the patient is developing lower extremity edema or other signs of fluid overload, the Lasix should be added back. The patient does continue on potassium 20 milliequivalents p.o. daily. I have asked for a BMP on 02/21/17 to ensure his potassium level is in good range. FOLLOWUP CONCERNS: The patient is being discharged to [facility] today, . ACTIVITY LEVEL: As tolerated. DIET: Regular. CONDITION ON DISCHARGE: Stable. TIME SPENT: Thirty five minutes was spent discharging this patient. CC: Dana Fishman NP * [id number]/[facility]IL[facility] #: [id number] MIKE
[2017-02-18 07:51] VITALS: BP 129/64
[2017-02-18] MEDS ORDERED: Acetaminophen TAB* 325 MG PO PRN (08:09)
[2017-02-18] MEDS: Magnesium Oxide TAB* 400 MG PO SCH (08:35)
[2017-02-18] MEDS: Calcitriol CAP* 0.25 MCG PO SCH (08:35)
[2017-02-18] MEDS: Metoprolol Tartrate TAB* 25 MG PO SCH (08:36)
[2017-02-18] MEDS: Potassium Chlor TAB* 10 MEQ TAB.ER PO SCH (08:36)
[2017-02-18] MEDS: Aspirin EC Low Dose* 81 MG TAB.EC PO SCH (08:36)
[2017-02-18] MEDS: Cyanocobalamin TAB* 500 MCG PO SCH (08:36)
== END 2017-02-18 10:00 | DRG 641 ==
LOC: ED 15:32 → MED 17:25 → OBSVTOIN 18:31
PROVIDERS: ADMIT Internal Medicine; ATTEND Hospitalist
DX: E86.0 Dehydration (principal); N18.4 Chronic kidney disease, stage 4 (severe); I48.92 Unspecified atrial flutter; F03.90 Unspecified dementia, unspecified severity, without behavioral disturbance, psychotic disturbance, mood disturbance, and anxiety; I95.1 Orthostatic hypotension; E05.90 Thyrotoxicosis, unspecified without thyrotoxic crisis or storm; F32.9 Major depressive disorder, single episode, unspecified; I12.9 Hypertensive chronic kidney disease with stage 1 through stage 4 chronic kidney disease, or unspecified chronic kidney disease; G89.29 Other chronic pain; K21.9 Gastro-esophageal reflux disease without esophagitis; I25.10 Atherosclerotic heart disease of native coronary artery without angina pectoris; F41.9 Anxiety disorder, unspecified; Z88.1 Allergy status to other antibiotic agents; Z88.0 Allergy status to penicillin; Z86.39 Personal history of other endocrine, nutritional and metabolic disease; Z66 Do not resuscitate; Z79.82 Long term (current) use of aspirin
CPT/HCPCS: 36415; 71010; 80048; 80053; 81003; 81015; 82550; 82553; 82565; 83605; 83690; 83735; 83880; 84134; 84443; 84484; 84520; 85025; 85610; 85730; 86140; 87040; 87086; 87502; 87641; 93005; A9270-GY; J0696; J1644; J2405

== ENCOUNTER 2017-04-08 09:07 | Inpatient (IN) | payer MEDICARE, MEDICAID ==
[2017-04-08 10:09] LABS: Hematocrit 43 % (42-52); Hemoglobin 13.9 g/dl (14.0-18.0); Mean Corpuscular HGB Conc 32 g/dl (31-36); Mean Corpuscular Hemoglobin 30 pg (27-31); Mean Corpuscular Volume 93 fL (80-94); Mean Platelet Volume 8 um3 (7.4-10.4); Red Blood Count 4.65 10^6/ul (4.0-5.4); Red Cell Distribution Width 15 % (10.5-15); White Blood Count 11.6 10^3/ul (3.5-10.8)
[2017-04-08 10:26] LABS: Albumin 3.8 g/dL (3.2-5.2); BUN/Creatinine Ratio 15.2 (8-20); C Reactive Protein 23.48 mg/L (< 5.00); Calcium 9.5 mg/dL (8.6-10.3); EGFR African American 44.8 (>60); EGFR Non-African American 34.8 (>60); Globulin 3.5 g/dL (2-4); Magnesium 1.8 mg/dL (1.9-2.7); Potassium 4.6 mmol/L (3.5-5.0); Total Bilirubin 0.8 mg/dL (0.2-1.0); Total Protein 7.3 g/dL (6.4-8.9)
[2017-04-08 10:27] LABS: Ammonia 33 mol/L (16-53)
[2017-04-08 10:30] LABS: Troponin I 0.04 ng/mL (<0.04)
[2017-04-08 10:31] LABS: B Type Natriuretic Peptide 61 pg/mL
[2017-04-08] MEDS: NS 0.9% 1000 ML* 1,000 ML IV SCH ×2 (10:35→17:55)
[2017-04-08 10:37] LABS: TSH (Thyroid Stimulating Horm) 0.58 mcIU/mL (0.34-5.60)
--- NOTE | 2017-04-08 10:54 | RAD ---
HISTORY: Unwitnessed fall, neck pain COMPARISONS: February 07, 2017 TECHNIQUE: Multiple contiguous axial CT scans were obtained of the head without intravenous contrast. FINDINGS: HEMORRHAGE/INFARCT: There is no hemorrhage or acute infarct. MASSES/SHIFT: There is no mass or shift. EXTRA-AXIAL SPACES: There are no extra-axial fluid collections. SULCI AND VENTRICLES: The sulci and ventricles are normal in size and position for the patient's stated age. CEREBRUM: There is a chronic lacunar infarct of the right caudate BRAINSTEM: There are no focal parenchymal abnormalities. CEREBELLUM: There are no focal parenchymal abnormalities. VESSELS: The vessels are grossly normal. PARANASAL SINUSES: The paranasal sinuses are clear. ORBITS: The orbits are unremarkable. BONES AND SOFT TISSUE: No bone or soft tissue abnormalities are noted. OTHER: None IMPRESSION: NO ACUTE INTRACRANIAL PATHOLOGY.
--- NOTE | 2017-04-08 10:57 | RAD ---
HISTORY: Unwitnessed fall, neck pain COMPARISONS: February 07, 2017 TECHNIQUE: Multiple contiguous axial CT scans were obtained of the cervical spine without intravenous contrast, with coronal and sagittal multiplanar reformations. FINDINGS: BRAIN: The visualized brain is unremarkable CENTRAL CANAL: Evaluation of the central canal is limited on CT technique; however, there is no obvious canalicular mass or epidural hemorrhage. ALIGNMENT: There is straightening of the cervical lordosis. VERTEBRAL BODIES: There is diffuse osteopenia. There is multilevel bridging anterolateral marginal osteophyte formation. There is no displaced fracture or dislocation JOINTS: There is osteoarthritis of the uncovertebral and facet joints and atlantoaxial joint MUSCULATURE: Unremarkable INTERVERTEBRAL DISCS: There is diffuse loss of intervertebral disc height. AXIAL IMAGES: C2-C3: There is no osseous neural foraminal narrowing or central canal stenosis. C3-C4: There is bilateral uncovertebral and facet hypertrophy. There is moderate bilateral neural foraminal narrowing. There is no osseous central canal stenosis. C4-C5: There is bilateral uncovertebral facet hypertrophy. There is no osseous neural foraminal narrowing or central canal stenosis. C5-C6: There is no osseous neural foraminal narrowing or central canal stenosis. C6-C7: There is no osseous neural foraminal narrowing or central canal stenosis. C7-T1: There is bilateral facet hypertrophy. There is no osseous neural foraminal narrowing or central canal stenosis. SOFT TISSUES: Again noted are multiple nodules of the right thyroid is described on the previous examination OTHER: None. IMPRESSION: 1. DEGENERATIVE DISC DISEASE AND OSTEOARTHRITIS. 2. NO ACUTE OSSEOUS INJURY TO THE CERVICAL SPINE
--- NOTE | 2017-04-08 12:13 | RAD ---
INDICATION: Chest pain. TECHNIQUE: 5 views of the right ribs were obtained. FINDINGS: There appear to be fractures of the right fifth through seventh lateral ribs which are likely old. No other fractures are seen. IMPRESSION: NONDISPLACED FRACTURES OF THE RIGHT FIFTH THROUGH SEVENTH LATERAL RIBS WHICH APPEAR OLD.
--- NOTE | 2017-04-08 12:35 | RAD ---
INDICATION: Fall. Chest pain. COMPARISON: February 14, 2017 TECHNIQUE: An AP portable seated view obtained at 1125 hours is submitted. FINDINGS: Bones/Soft Tissues: There are no acute bony findings. Cardiomediastinal: The cardiomediastinal silhouette is normal. Lungs: There are bibasilar infiltrates or atelectasis left greater than right. There is vascular crowding due to the expiratory nature of the image. Pleura: Small bilateral pleural effusions are suspected. Other: None IMPRESSION: EXPIRATORY FILM WITH BASILAR INFILTRATE OR ATELECTASIS LEFT GREATER THAN RIGHT. SUGGEST FOLLOW-UP PA AND LATERAL VIEWS
[2017-04-08] MEDS ORDERED: Azithromycin IV(*) 500 MG in NS 0.9% 250 ML* 250 ML IVPB ONE (13:09)
[2017-04-08] MEDS ORDERED: cefTRIAXone(*) 1 GM in NS 0.9% 50 ML* 50 ML IVPB ONE (13:09)
[2017-04-08] MEDS ORDERED: Ondansetron INJ* 2 MG/ML VIAL IV PRN (13:36)
[2017-04-08] MEDS ORDERED: cefTRIAXone VIAL(*) 1,000 MG in NS 0.9% 50 ML* 50 ML IVPB SCH (14:00)
[2017-04-08] MEDS ORDERED: Azithromycin IV(*) 500 MG in NS 0.9% 250 ML* 250 ML IVPB SCH (14:00)
[2017-04-08] MEDS ORDERED: NS 0.9% 1000 ML* 1,000 ML IV SCH (14:00)
[2017-04-08 14:01] LABS: Urine Bacteria Absent (Absent); Urine Bilirubin Negative (Negative); Urine Glucose 1+(50 mg/dL) (Negative); Urine Nitrite Negative (Negative)
--- NOTE | 2017-04-08 14:33 | ED ---
Kamran Stewart Auryana, scribed for Ady Vo MD on 04/08/17 at 1007 . Adult Trauma - HPI Summary HPI Summary: 89 year old male presents with diffuse pain s/p unwitnessed fall at 07:00. He states that he did not hit his head and denies any neck pain. He states that he has right sided chest pain. PMHx is significant for dementia - poor historian and is a level 5 caveat. - History of Current Complaint Chief Complaint: EDTraumaMultiple Stated Complaint: FALL Time Seen by Provider: 04/08/17 09:15 Hx Obtained From: EMS, Medical Records, Other: - nurse triage Hx From Patient Unobtainable Due To: Dementia - patient is a level 5 caveat due to dementia Mechanism of Injury: Fall - unwitnessed Ambulatory at the Scene: N/A Onset/Duration: Started Hours Ago - PUBLIC INFORMATION COORDINATOR, Traumatic Onset of Pain: Immediate, Post Accident Current Severity: Moderate Pain Intensity: 8 - states right sided chest pain - denies neck pain Pain Scale Used: 0-10 Numeric Location: Chest - right sided chest Associated Signs & Symptoms: Positive: Other: - no neck pain. Negative: Loss of Consciousness - Additional Pertinent History Primary Care Physician: [id number] - Allergy/Home Medications Allergies/Adverse Reactions: Allergies Allergy/AdvReac Type Severity Reaction Status Date / Time Codeine Allergy Intermediate Vomiting Verified 04/08/17 10:41 Donepezil Allergy Unknown Verified 04/08/17 10:41 Reaction Details Neomycin Allergy Unknown Verified 04/08/17 10:41 Reaction Details Penicillins Allergy Unknown Verified 04/08/17 10:41 Reaction Details PMH/Surg Hx/FS Hx/Imm Hx Endocrine/Hematology History: Reports: Hx Thyroid Disease - hyperthyroid, Other Endocrine/Hematological Disorders - Hx of hypomagnesemia Denies: Hx Anticoagulant Therapy - pt denies Cardiovascular History: Reports: Hx Atrial Fibrillation, Hx Coronary Artery Disease, Hx Hypertension, Hx Peripheral Vascular Disease, Other Cardiovascular Problems/Disorders - PVD, CHRONIC RENAL FAILURE GI History: Reports: Hx Gastroesophageal Reflux Disease History: Reports: Hx Chronic Renal Failure Musculoskeletal History: Reports: Other Musculoskeletal History - L rotator cuff repair Neurological History: Reports: Hx Dementia Psychiatric History: Reports: Hx Depression - Surgical History Surgery Procedure, Year, and Place: hernia repair, L rotator cuff repair Infectious Disease History: No Infectious Disease History: Denies: Hx Clostridium Difficile, Hx Hepatitis, Hx Human Immunodeficiency Virus (HIV), Hx of Known/Suspected MRSA, Hx Shingles, Hx Tuberculosis, History Other Infectious Disease, Traveled Outside the [place] in Last 30 Days - Family History Known Family History: Positive: None, Other - No FHx of DVT Family History: R & n/C - Social History Occupation: Retired [facility]: [facility] Alcohol Use: None - per history taken 02/14/17 Hx Substance Use: No Substance Use Type: Reports: None Hx Tobacco Use: No Smoking Status (MU): Never Smoked Tobacco Review of Systems - ROS Summary Review of Systems Summary: patient is a level 5 caveat due to dementia Positive: Other - NO LOC. Negative: Fever Positive: Other - right sided chest pain Negative: Arthralgia - no neck pain All Other Systems Reviewed And Are Negative: No Physical Exam Triage Information Reviewed: Yes Vital Signs On Initial Exam: Initial Vitals BP 173/90 04/08/17 09:22 Vital Signs Reviewed: Yes Completion Of Physical Exam Limited Due To: Level 5 - patient is a level 5 caveat due to dementia Appearance: Positive: Well-Appearing Skin: Positive: Warm, Skin Color Reflects Adequate Perfusion, Dry Head/Face: Positive: Normal Head/Face Inspection Eyes: Positive: EOMI, MAGALI ENT: Positive: Normal ENT inspection, Other - dry oral mucosa Neck: Positive: Other: - within collar Respiratory/Lung Sounds: Positive: Clear to Auscultation, Breath Sounds Present Cardiovascular: Positive: RRR Abdomen Description: Positive: Nontender, Soft Bowel Sounds: Positive: Present Musculoskeletal: Positive: Normal, Strength/ROM Intact - moves all 4 extremities , Other - right anterior rib pain without ecchymosis Neurological: Positive: Normal, Sensory/Motor Intact, Alert, Oriented to Person Place, Time Psychiatric: Positive: Affect/Mood Appropriate - Cindy Coma Scale Coma Scale Total: 13 Diagnostics - Vital Signs Vital Signs Temp Pulse Resp BP Pulse Ox 04/08/17 09:38 98.0 F 91 22 163/100 94 04/08/17 09:32 98.0 F 91 22 163/100 92 04/08/17 09:30 98.0 F 81 21 163/100 91 04/08/17 09:24 79 27 92 04/08/17 09:22 173/90 - Laboratory Lab Results: Lab Results 05/08/1704/08/17 04/08/17 Range/Units 09:37 09:37 09:37 WBC 11.6 H (3.5-10.8) 10^3/ul RBC 4.65 (4.0-5.4) 10^6/ul Hgb 13.9 L (14.0-18.0) g/dl Hct 43 (42-52) % MCV 93 (80-94) fL MCH 30 (27-31) pg MCHC 32 (31-36) g/dl RDW 15 (10.5-15) % Plt Count 129 L (150-450) 10^3/ul MPV 8 (7.4-10.4) um3 Neut % (Auto) 90.1 H (38-83) % Lymph % (Auto) 4.1 L (25-47) % Whiteside % (Auto) 5.4 (1-9) % Eos % (Auto) 0.1 (0-6) % Baso % (Auto) 0.3 (0-2) % Absolute Neuts (auto) 10.4 H (1.5-7.7) 10^3/ul Absolute Lymphs (auto) 0.5 L (1.0-4.8) 10^3/ul Absolute Monos (auto) 0.6 (0-0.8) 10^3/ul Absolute Eos (auto) 0 (0-0.6) 10^3/ul Absolute Basos (auto) 0 (0-0.2) 10^3/ul Absolute Nucleated RBC 0.01 10^3/ul Nucleated RBC % 0 INR (Anticoag Therapy) 0.98 (0.89-1.11) APTT 26.3 (26.0-36.3) seconds Sodium 132 L (133-145) mmol/L Potassium 4.6 (3.5-5.0) mmol/L Chloride 99 L (101-111) mmol/L Carbon Dioxide 25 (22-32) mmol/L Anion Gap 8 (2-11) mmol/L BUN 28 H (6-24) mg/dL Creatinine 1.84 H (0.67-1.17) mg/dL Est GFR ( Amer) 44.8 (>60) Est GFR (Non-Af Amer) 34.8 (>60) BUN/Creatinine Ratio 15.2 (8-20) Glucose 149 H (70-100) mg/dL Lactic Acid (0.5-2.0) mmol/L Calcium 9.5 (8.6-10.3) mg/dL Magnesium 1.8 L (1.9-2.7) mg/dL Total Bilirubin 0.80 (0.2-1.0) mg/dL AST 19 (13-39) U/L ALT 19 (7-52) U/L Alkaline Phosphatase 60 (34-104) U/L Ammonia (16-53) mol/L Total Creatine Kinase 31 (10-223) U/L CK-MB (CK-2) 4.0 (0.6-6.3) ng/mL Troponin I 0.04 H* (<0.04) ng/mL C-Reactive Protein 23.48 H (< 5.00) mg/L B-Natriuretic Peptide ( - 100) pg/mL Total Protein 7.3 (6.4-8.9) g/dL Albumin 3.8 (3.2-5.2) g/dL Globulin 3.5 (2-4) g/dL Albumin/Globulin Ratio 1.1 (1-3) Lipase 18 (11.0-82.0) U/L TSH 0.58 (0.34-5.60) mcIU/mL Urine Color Urine Appearance Urine pH (5-9) Ur Specific [place] (1.010-1.030) Urine Protein (Negative) Urine Ketones (Negative) Urine Blood (Negative) Urine Nitrate (Negative) Urine Bilirubin (Negative) Urine Urobilinogen (Negative) Ur Leukocyte Esterase (Negative) Urine WBC (Auto) (Absent) Urine RBC (Auto) (Absent) Ur Squamous Epith Cells (Absent) Urine Bacteria (Absent) Urine Glucose (Negative) 04/08/17 04/08/17 04/08/17 Range/Units 09:37 09:37 13:25 WBC (3.5-10.8) 10^3/ul RBC (4.0-5.4) 10^6/ul Hgb (14.0-18.0) g/dl Hct (42-52) % MCV (80-94) fL MCH (27-31) pg MCHC (31-36) g/dl RDW (10.5-15) % Plt Count (150-450) 10^3/ul MPV (7.4-10.4) um3 Neut % (Auto) (38-83) % Lymph % (Auto) (25-47) % Wh[place]ide % (Auto) (1-9) % Eos % (Auto) (0-6) % Baso % (Auto) (0-2) % Absolute Neuts (auto) (1.5-7.7) 10^3/ul Absolute Lymphs (auto) (1.0-4.8) 10^3/ul Absolute Monos (auto) (0-0.8) 10^3/ul Absolute Eos (auto) (0-0.6) 10^3/ul Absolute Basos (auto) (0-0.2) 10^3/ul Absolute Nucleated RBC 10^3/ul Nucleated RBC % INR (Anticoag Therapy) (0.89-1.11) APTT (26.0-36.3) seconds Sodium (133-145) mmol/L Potassium (3.5-5.0) mmol/L Chloride (101-111) mmol/L Carbon Dioxide (22-32) mmol/L Anion Gap (2-11) mmol/L BUN (6-24) mg/dL Creatinine (0.67-1.17) mg/dL Est GFR ( Amer) (>60) Est GFR (Non-Af Amer) (>60) BUN/Creatinine Ratio (8-20) Glucose (70-100) mg/dL Lactic Acid 1.3 (0.5-2.0) mmol/L Calcium (8.6-10.3) mg/dL Magnesium (1.9-2.7) mg/dL Total Bilirubin (0.2-1.0) mg/dL AST (13-39) U/L ALT (7-52) U/L Alkaline Phosphatase (34-104) U/L Ammonia 33 (16-53) mol/L Total Creatine Kinase (10-223) U/L CK-MB (CK-2) (0.6-6.3) ng/mL Troponin I (<0.04) ng/mL C-Reactive Protein (< 5.00) mg/L B-Natriuretic Peptide 61 ( - 100) pg/mL Total Protein (6.4-8.9) g/dL Albumin (3.2-5.2) g/dL Globulin (2-4) g/dL Albumin/Globulin Ratio (1-3) Lipase (11.0-82.0) U/L TSH (0.34-5.60) mcIU/mL Urine Color Yellow Urine Appearance Clear Urine pH 7.0 (5-9) Ur Specific [place] 1.015 (1.010-1.030) Urine Protein 1+(30 mg/dl) H (Negative) Urine Ketones Trace H (Negative) Urine Blood Negative (Negative) Urine Nitrate Negative (Negative) Urine Bilirubin Negative (Negative) Urine Urobilinogen Negative (Negative) Ur Leukocyte Esterase Trace H (Negative) Urine WBC (Auto) 1+(6-10/hpf) H (Absent) Urine RBC (Auto) Trace(0-2/hpf) (Absent) Ur Squamous Epith Cells Present H (Absent) Urine Bacteria Absent (Absent) Urine Glucose 1+(50 mg/dl) H (Negative) Result Diagrams: 04/08/17 09:37 04/08/17 09:37 Lab Statement: Any lab studies that have been ordered have been reviewed, and results considered in the medical decision making process. - Radiology RIGHT RIB XR Xray Interpretation: Positive (See Comments) - IMPRESSION: NONDISPLACED FRACTURES OF THE RIGHT FIFTH THROUGH SEVENTH LATERAL RIBS WHICH APPEAR OLD. Radiology Interpretation Completed By: Radiologist CXR Xray Interpretation: Positive (See Comments) - IMPRESSION: EXPIRATORY FILM WITH BASILAR INFILTRATE OR ATELECTASIS LEFT GREATER THAN RIGHT. SUGGEST FOLLOW- UP PA AND LATERAL VIEWS Radiology Interpretation Completed By: Radiologist - CT BRAIN CT Interpretation: No Acute Changes CT Interpretation Completed By: Radiologist CERVICAL SPINE CT Interpretation: Positive (See Comments) - IMPRESSION: 1. DEGENERATIVE DISC DISEASE AND OSTEOARTHRITIS. 2. NO ACUTE OSSEOUS INJURY TO THE CERVICAL SPINE CT Interpretation Completed By: Radiologist - EKG 09:05 Cardiac Rate: NL EKG Rhythm: Sinus Rhythm Ectopy: PVCs, PACs EKG Interpretation: NSR @ 86, flat T waves in lead III, (+) PVCs and (+) PACs Adult Trauma Course/Dx - Course Course Of Treatment: NO CRITICAL CARE TIME Assessment/Plan: ADMIT HOSPITALIST STABLE - Diagnoses Provider Diagnoses: Altered mental state Discharge - Discharge Plan Condition: Stable Disposition: ADMITTED TO [facility] Referrals: No Primary Care Phys,NOPCP [Primary Care Provider] - The documentation as recorded by the Kamran boyd Auryana accurately reflects the service I personally performed and the decisions made by me, Ady Vo MD.
--- NOTE | 2017-04-08 16:48 | RAD ---
INDICATION: Abdominal pain. Previous hernia repair. COMPARISON: May 17, 2016 renal bladder ultrasound. TECHNIQUE: Multidetector CT images were obtained from the lung bases to the ischial tuberosities. Evaluation of the viscera is limited without IV contrast. Small volume of oral contrast ingested. Multiplanar reformation. REPORT: Coarse interstitial markings at the visualized lung bases. Patchy alveolar consolidation at the inferior lingula concerning for pneumonia. Negative for pleural effusions. Mild cardiomegaly. Negative for pericardial effusion. Unremarkable unenhanced liver. Distended gallbladder without additional CT finding. Advanced fatty involution of the pancreas. 2.0 x 2.6 cm sharply circumscribed denser than water lesion at the level of the pancreatic tail. Negative for peripancreatic inflammatory change. Unremarkable spleen. Small splenule visualized anterior to the dominant spleen. Small volume of enteric contrast at the stomach. Medially directed 3.5 cm AP by 3.9 cm transverse diverticulum at the second segment of the duodenum without suggestion of inflammatory change. Negative for CT abnormality of the small bowel or diminutive retrocecal appendix. Mild diverticulosis at the sigmoid colon without findings of diverticulitis. Negative for ascites or free air. Negative for significant hernias. Normal adrenal glands. Moderately atrophic kidneys. No conspicuous nephrolithiasis or hydronephrosis. Small cortical and parapelvic cysts at the LEFT kidney. No suspicious focal renal lesions. Unremarkable ureters and partially distended urinary bladder. Unremarkable prostate and symmetric atrophied seminal vesicles. Negative for lymphadenopathy. Mild calcific plaque without aneurysm of the abdominal aorta or common iliac arteries. Physiologic partial distention of the IVC. Negative for fracture or suspicious focal osseous lesions. Schmorl node endplate herniation at the inferior endplate of L3. Polyarticular degenerative arthropathy. . Negative for retroperitoneal hematoma. IMPRESSION: 1. Patchy consolidation at the inferior lingula concerning for potential pneumonia. 2. 2.0 x 2.6 cm denser than water sharply circumscribed lesion at the tail of the pancreas is relative low suspicion based on morphology. Given absence of prior exams to document stability with no relevant prior exams available on the [facility] P[facility] consider reassessment with noncontrast CT in 3 months time if clinically indicated. 3. Normal appendix documented. Mild sigmoid diverticulosis without findings of diverticulitis. 4. Moderate renal cortical atrophy. Negative for obstructive uropathy. 5. Negative for lymphadenopathy. 6. Negative for aneurysm of the abdominal aorta.
[2017-04-08] MEDS: Heparin VIAL(*) 5000 UNITS/ML VIAL (FIVE THOUSAND) SUBCUT SCH ×2 (17:23→20:08)
[2017-04-08] MEDS: Acetaminophen TAB* 325 MG PO PRN ×2 (17:54→23:43)
[2017-04-08] MEDS: cefTRIAXone VIAL(*) 1,000 MG in NS 0.9% 50 ML* 50 ML IVPB SCH (17:54)
[2017-04-08] MEDS: Azithromycin IV(*) 500 MG in NS 0.9% 250 ML* 250 ML IVPB SCH (18:27)
[2017-04-08] MEDS: Magnesium Oxide TAB* 400 MG PO SCH (20:08)
[2017-04-08] MEDS: traMADol TAB* 50 MG PO PRN (20:08)
--- NOTE | 2017-04-08 22:12 | HP ---
HISTORY AND PHYSICAL: * ADDENDUM: Mr. Isac Contreras is an 89-year-old male resident of [facility] who was found down after an unwitnessed fall. The patient appears to have pneumonia. There were some complaints of abdominal pain and the CT of the abdomen is pending at the time of dictation. For further details of the patient 's presentation and plan, please see history and physical exam dictated by Wilton Ny, on 04/08/17 with which I agree. [id number]/[facility] #: [id number] MTDD
[2017-04-08] MEDS: Doxazosin TAB* 2 MG PO SCH (22:23)
--- NOTE | 2017-04-08 22:37 | HP ---
ATTENDING PHYSICIAN'S ADDENDUM NOW INCLUDED ON THIS REPORT HISTORY AND PHYSICAL: DATE OF ADMISSION: 04/08/17 PRIMARY CARE PROVIDER: Dr. Way. ATTENDING PHYSICIAN WHILE IN THE HOSPITAL: Dr. Etta Kolb * (report dictated by Wilton Gaona NP). CHIEF COMPLAINT: Altered mental status. HISTORY OF PRESENT ILLNESS: Mr. Contreras is an 89-year-old male patient, he has history of CKD, stage 4; depression; chronic pain; Aflutter; hypertension; GERD ; dementia; anxiety; CHF; peripheral vascular disease; vitamin D deficiency, who comes into the ER today because it was noted by staff at [facility] that he had an unwitnessed fall, he was found around 7 in the morning, sitting by his bed on the floor, he was not at his baseline per staff. He was complaining of a headache and neck pain, and right rib and abdominal pain. It was unclear if he had loss of consciousness. At that point, 911 was summoned and he came into the hospital. In interviewing the patient, he says he remembers coming into the hospital, says he has not been feeling well, he has been having stomach ache for about a day, it has been mostly in the lower abdomen. He denies having chest pain or shortness of breath. When asking him if he remembers falling out of his bed, he denies this, and he denies having any vomiting or diarrhea. There have been no fevers or chills. He denied having any chest discomfort and says he has been taking his medications. There have been no change in medication and no trouble with urinating. Dr. Way was concerned and he was sent to the hospital for further evaluation. PAST MEDICAL HISTORY: Significant for: 1. CKD, stage 4. 2. Depression. 3. Chronic pain. 4. Aflutter. 5. Hypertension. 6. GERD. 7. Dementia. 8. Anxiety. 9. CHF with an intact EF. 10. Peripheral vascular disease. 11. Vitamin D deficiency. PAST SURGICAL HISTORY: Denied. MEDICATIONS: Home meds according to the list that was provided include: 1. Tramadol 50 mg p.o. b.i.d. 2. Potassium 20 mEq p.o. daily with meals. 3. Prilosec 20 mg daily. 4. Lopressor 12.5 mg daily. 5. Magnesium oxide 800 mg p.o. b.i.d. 6. Cardura 1 mg at bedtime. 7. B12 1000 mcg daily. 8. Calcium carbonate 500 mg p.o. b.i.d. as needed. 9. Calcitriol 0.5 mcg p.o. daily. 10. Aspirin 81 mg daily. 11. Tylenol 650 mg every 6 hours as needed. ALLERGIES TO MEDICATIONS: Include CODEINE, ARICEPT, NEOMYCIN, and PENICILLIN. FAMILY HISTORY: Reviewed was noncontributory and frankly is unknown per the patient. SOCIAL HISTORY: He does reside at [place]. He does not drink alcohol. He does not smoke. Surrogate decision maker is his daughter, Harleen. REVIEW OF SYSTEMS: There is no documented fever. He denied any significant weight change. He denies having any double vision. There is no ear discharge. He denies having any rhinorrhea. No sore throat. No thyroid enlargement. Denies having any chest pain. There is no orthopnea, no nocturnal dyspnea. There was abdominal pain, mostly in the lower quadrant. There is no nausea, no vomiting. No dysuria, no frequency. No seizure, no loss of consciousness. No pruritus and no skin ulcerations. Review of 14 systems completed, all others negative. PHYSICAL EXAMINATION GENERAL: At this time, Mr. Contreras is an 89-year-old male patient. He is sitting in the ER stretcher, he does not appear to be in any acute distress. VITAL SIGNS: Reveal blood pressure 118/57, respirations 15, O2 sat 95%, and temperature 98.0. HEENT: Head is atraumatic, normocephalic. Eyes: EOMs intact. Sclerae anicteric, not pale. Throat: Oral mucosa appears to be moist. No oropharyngeal erythema. NECK: Supple. LUNGS: Clear to auscultation. No wheezes, rales, or rhonchi. HEART: Sounds S1, S2. Regular rate and rhythm. No murmurs, rubs, or gallops. ABDOMEN: Soft, flat, there was tenderness in the left lower and suprapubic area. Bowel sounds present and was nondistended. EXTREMITIES: Pulses were 2+ throughout. He is able to move all 4 extremities with 5/5 strength. NEUROLOGIC: The patient is awake. He is alert to himself only. He is alert to the place, confused to month. Animal Control Supervisor were equal. Speech clear. Tongue midline. No gross focal deficits. SKIN: Intact. DIAGNOSTIC STUDIES/LAB DATA: Today, revealed WBC of 11.6, RBC of 4.65, hemoglobin 13.9, hematocrit of 43, platelet count of 129. INR was 0.98, PTT of 26.3. Sodium 132, potassium 4.6, chloride 99, bicarb of 25, BUN 28, creatinine of 1.84 which is right near his baseline, glucose of 149, lactate 1.3, calcium 9.5, mag 1.8. Total bili 0.8, AST 19, ALT 19, alk phos 60. His CK was 4. His troponin was 0.04. BNP was 61. TSH of 0.58. Lipase 18. Urine pending. The patient had multiple imaging in the ER; he had a rib x-ray, which revealed a non-displaced fracture to the right 5th through 7th lateral ribs, which appear old. Chest x-ray shows expiratory film with bibasilar infiltrate and atelectasis, left greater than the right. Cervical spine CT, which showed degenerative disk disease and osteoarthritis, no acute osseous injury of the cervical spine. He had a brain CT, which showed no acute intracranial pathology. There was an EKG, which showed what appeared to be atrial fibrillation and PVC, no ST elevation or T-wave inversions were noted. It was reviewed to a previous EKG that does appear to be similar. Old medical records were reviewed. ASSESSMENT AND PLAN: Mr. Contreras is an 89-year-old male patient coming into the ER today with fall and altered mental status. He will be admitted under observation status for: 1. Altered mental status: Etiology is unclear, concern there may be an infectious component, he was pretty tender on exam. I think, he does warrant a CT of the abdomen and pelvis to make sure there is not infectious etiology. Certainly, the left lower lobe infiltrate could cause, but he was really tender in the left lower quadrant, so I want to make sure there is not any other infectious etiology. My plan is to go ahead and put him on Rocephin and azithromycin. Check flu swab, sputum cultures, and get legionella and strep urine antigen, check his UA as well, and continue to follow. I also have ordered a PT evaluation. We will place him on telemetry and we will follow him closely. 2. Fall: Again, we will get a PT evaluation and if there is an underlying infection component that certainly may have tipped him over the edge to a fall today in the morning hours. Fortunately, he does not appear to have any injuries on exam. 3. Chronic kidney disease, stage 4: He is at his baseline, we will follow. 4. Depression: Supportive care. 5. Chronic pain in the setting of an altered mental status: We will avoid narcotics. 6. Atrial fibrillation/atrial flutter: He will be on telemetry. 7. Indeterminate troponin: Etiology is unclear, it could just be demand ischemia with an underlying infection. We will trend these and monitor. He denies any chest pain currently. 8. Hypertension: Continue meds as prescribed. 9. Gastroesophageal reflux disease: Continue PPI therapy. 10. Dementia: Supportive care. 11. Anxiety: Continue supportive care. 12. History of congestive heart failure: I will diurese as needed and we will monitor him closely. I am actually going to give him little fluids, he does appear to be dehydrated. 13. Peripheral vascular disease: Continue meds as prescribed. 14. Vitamin D deficiency: Continue meds as prescribed. 15. DVT prophylaxis: He will be placed on heparin subcu. 16. Code status: He is a DNR. 17. Fluids, electrolytes, and nutrition. He will be n.p.o. pending the CT scan. TIME SPENT: On the admission was approximately 70 minutes; greater than half the time was spent [id number] with the patient obtaining history and physical , other half of the time spent going over the plan of care with the patient and implementing plan of care. I did discuss the plan of care with my attending, Dr. Kolb; she is in agreement. WILTON GAONA NP HISTORY AND PHYSICAL: ADDENDUM: Mr. Isac Contreras is an 89-year-old male resident of [facility] who was found down after an unwitnessed fall. The patient appears to have pneumonia. There were some complaints of abdominal pain and the CT of the abdomen is pending at the time of dictation. For further details of the patient 's presentation and plan, please see history and physical exam dictated by Wilton Gaona, on 04/08/17 with which I agree. ETTA KOLB MD CC: Dr. Way* [id number] #: [id number] #: [id number] MIKE
[2017-04-09] MEDS: NS 0.9% 1000 ML* 1,000 ML IV SCH (02:59)
[2017-04-09] MEDS: traMADol TAB* 50 MG PO PRN ×2 (03:05→16:59)
[2017-04-09] MEDS: Heparin VIAL(*) 5000 UNITS/ML VIAL (FIVE THOUSAND) SUBCUT SCH ×3 (05:11→20:55)
[2017-04-09 05:23] LABS: Hematocrit 39 % (42-52); Hemoglobin 12.5 g/dl (14.0-18.0); Mean Corpuscular HGB Conc 32 g/dl (31-36); Mean Corpuscular Hemoglobin 31 pg (27-31); Mean Corpuscular Volume 95 fL (80-94); Mean Platelet Volume 9 um3 (7.4-10.4); Red Blood Count 4.07 10^6/ul (4.0-5.4); Red Cell Distribution Width 15 % (10.5-15); White Blood Count 6.9 10^3/ul (3.5-10.8)
[2017-04-09 05:38] LABS: BUN/Creatinine Ratio 15.3 (8-20); Calcium 8.5 mg/dL (8.6-10.3); EGFR African American 53.8 (>60); EGFR Non-African American 41.8 (>60); Potassium 4.1 mmol/L (3.5-5.0)
[2017-04-09] MEDS: Omeprazole CAP* 20 MG PO SCH (08:49)
[2017-04-09] MEDS: Aspirin EC Low Dose* 81 MG TAB.EC PO SCH (08:49)
[2017-04-09] MEDS: Acetaminophen TAB* 325 MG PO PRN ×2 (08:49→20:54)
[2017-04-09] MEDS: Magnesium Oxide TAB* 400 MG PO SCH ×2 (08:49→20:55)
[2017-04-09] MEDS: Metoprolol Tartrate TAB* 25 MG PO SCH (08:50)
[2017-04-09] MEDS: Calcitriol CAP* 0.25 MCG PO SCH (08:52)
[2017-04-09] MEDS ORDERED: Metoprolol Tartrate TAB* 25 MG PO SCH (09:00)
--- NOTE | 2017-04-09 13:49 | PN ---
Subjective Date of Service: 04/09/17 Interval History: Patient seen and examined at bedside. Denies fever, chill, chest discomfort, N/V /D. Pt reports lower abdominal pain and shortness of breath. Tele: Sinus georgie-Sinus rhythm, rate 50-70's. Few PVCs noted. Family History: Unchanged from Admission Social History: Unchanged from Admission Past Medical History: Unchanged from Admission Objective Active Medications: Acetaminophen (Tylenol Tab*) 650 mg PO Q4H PRN Reason: FEVER/PAIN Aspirin (Aspirin Ec Low Dose*) 81 mg PO DAILY HORACIO Calcitriol (Rocaltrol Cap*) 0.5 mcg PO DAILY HORACIO Doxazosin Mesylate (Cardura Tab*) 1 mg PO BEDTIME HORACIO Heparin Sodium (Porcine) (Heparin Vial(*)) 5,000 units SUBCUT Q8HR HORACIO Azithromycin 500 mg/ Sodium (Chloride) 250 mls @ 250 mls/hr IVPB 1800 HORACIO Ceftriaxone Sodium 1,000 mg/ (Sodium Chloride) 50 mls @ 200 mls/hr IVPB 1730 HORACIO Magnesium Oxide (Magox 400 Tab*) 800 mg PO BID HORACIO Metoprolol Tartrate (Lopressor Tab*) 12.5 mg PO DAILY HORACIO Omeprazole (Prilosec Cap*) 20 mg PO DAILY HORACIO Ondansetron HCl (Zofran Inj*) 4 mg IV Q6H PRN Reason: NAUSEA Tramadol HCl (Ultram*) 50 mg PO BID PRN Reason: PAIN Vital Signs 04/08/17 04/08/17 04/08/17 13:46 14:00 14:02 Temperature Pulse Rate 50 81 Respiratory Rate Blood Pressure 116/77 (mmHg) O2 Sat by Pulse 95 96 Oximetry 04/08/17 04/08/17 04/08/17 14:30 15:00 15:30 Temperature Pulse Rate 74 71 Respiratory 20 21 23 Rate Blood Pressure 143/64 147/83 132/72 (mmHg) O2 Sat by Pulse 95 96 Oximetry 04/08/17 04/08/17 04/08/17 16:00 16:16 16:25 Temperature 97.9 F Pulse Rate 68 65 Respiratory 23 18 Rate Blood Pressure 143/64 154/117 154/77 (mmHg) O2 Sat by Pulse 95 96 Oximetry 04/08/17 04/08/17 04/08/17 16:30 20:00 20:08 Temperature 98.1 F Pulse Rate 54 81 Respiratory 18 20 18 Rate Blood Pressure 136/73 139/69 (mmHg) O2 Sat by Pulse 96 95 Oximetry 04/08/17 04/08/17 04/09/17 22:08 23:34 03:05 Temperature 98.1 F Pulse Rate 74 Respiratory 18 16 18 Rate Blood Pressure 119/62 (mmHg) O2 Sat by Pulse 95 Oximetry 04/09/17 04/09/17 04/09/17 04:34 05:05 07:00 Temperature 97.7 F Pulse Rate 66 Respiratory 16 18 18 Rate Blood Pressure 143/79 (mmHg) O2 Sat by Pulse 92 Oximetry 04/09/17 04/09/17 07:35 11:17 Temperature 97.6 F 97.4 F Pulse Rate 66 58 Respiratory 16 16 Rate Blood Pressure 158/80 107/57 (mmHg) O2 Sat by Pulse 98 94 Oximetry Oxygen Devices in Use Now: None Appearance: NAD, sitting up in bed Eyes: No Scleral Icterus, PERRLA Ears/Nose/Mouth/Throat: Mucous Membranes Moist Respiratory: Symmetrical Chest Expansion and Respiratory Effort, Clear to Auscultation Cardiovascular: NL Sounds; No Murmurs; No JVD, RRR Abdominal: NL Sounds; No Tenderness; No Distention Extremities: No Edema Skin: No Rash or Ulcers Neurological: NL Muscle Strength and Tone, - - Alert and Oriented to self, and place Lines/Tubes/Other Access: Clean, Dry and Intact Peripheral IV - site benign Nutrition: Taking PO's Result Diagrams: 04/09/17 04:42 04/09/17 04:42 Additional Lab and Data: Microbiology and Other Data: Microbiology 04/08/17 17:55 Nasal Screen MRSA (PCR)(JOSEMANUEL) - Final Nasal Mrsa Negative 04/08/17 17:55 Influenza Types A,B Antigen (JOSEMANUEL) - Final Nasal Specimen received for Influenza A/B Molecular testing Assess/Plan/Problems-Billing Assessment: Mr. Contreras is a 89 yo male with PMH significant for CKD, aflutrer, chronic pain, HTN, dementia, CHF, PVD who presented to the emergency room after a fall with altered mental status. - Patient Problems (1) Altered mental status Code(s): R41.82 - ALTERED MENTAL STATUS, UNSPECIFIED SNOMED Code(s): 550429032 Comment: - Improved - Suspect related to PNA (2) Pneumonia Code(s): J18.9 - PNEUMONIA, UNSPECIFIED ORGANISM SNOMED Code(s): 694548758 Comment: - Left Lower lobe infiltrate - Afebrile, leukocytosis resolved - Influenza A/B and Legionella and Strep urine antigens negative - Continue Azithromycin and Ceftriaxone (3) Fall Comment: - Continue Physical Therapy (4) HTN (hypertension) Code(s): I10 - ESSENTIAL (PRIMARY) HYPERTENSION SNOMED Code(s): 31226196 Comment: - Normotensive - Continue Lopressor and Cardura (5) Elevated troponin Code(s): R74.8 - ABNORMAL LEVELS OF OTHER SERUM ENZYMES SNOMED Code(s): 101261961 Comment: - Denies chest pain - Trop 0.04, 0.02 and 0.03 - Suspect demand ischemia from fall and infection (6) GERD (gastroesophageal reflux disease) Code(s): K21.9 - GASTRO-ESOPHAGEAL REFLUX DISEASE WITHOUT ESOPHAGITIS SNOMED Code(s): 246220591 Comment: - Continue PPI (7) CHF (congestive heart failure) Code(s): I50.9 - HEART FAILURE, UNSPECIFIED SNOMED Code(s): 03845909 Comment: - No signs of exacerbation - Last EF from 01/2016 60-65% (8) Atrial flutter Code(s): I48.92 - UNSPECIFIED ATRIAL FLUTTER SNOMED Code(s): 5410280 Comment: - Paroxysmal - Currently in sinus rhythm - Continue metoprolol. (9) CKD (chronic kidney disease) stage 3, GFR 30-59 ml/min Code(s): N18.3 - CHRONIC KIDNEY DISEASE, STAGE 3 (MODERATE) SNOMED Code(s): 731724168 Comment: - Creatinine is at baseline. (10) Dementia Code(s): F03.90 - UNSPECIFIED DEMENTIA WITHOUT BEHAVIORAL DISTURBANCE SNOMED Code(s): 70554119 Comment: - Supportive care (11) DVT prophylaxis Code(s): UFH3647 - SNOMED Code(s): 377911022 Comment: - SQ heparin (12) DNR (do not resuscitate) Status and Disposition: OBV to Inpatient. Discharge back to [facility] when medically stable.
[2017-04-09] MEDS: cefTRIAXone VIAL(*) 1,000 MG in NS 0.9% 50 ML* 50 ML IVPB SCH (17:00)
[2017-04-09] MEDS: Azithromycin IV(*) 500 MG in NS 0.9% 250 ML* 250 ML IVPB SCH (17:26)
[2017-04-09] MEDS: Doxazosin TAB* 2 MG PO SCH (20:56)
[2017-04-10] MEDS: traMADol TAB* 50 MG PO PRN (05:14)
[2017-04-10] MEDS: Heparin VIAL(*) 5000 UNITS/ML VIAL (FIVE THOUSAND) SUBCUT SCH ×2 (05:14→13:59)
[2017-04-10 05:53] LABS: Hematocrit 36 % (42-52); Hemoglobin 11.8 g/dl (14.0-18.0); Mean Corpuscular HGB Conc 33 g/dl (31-36); Mean Corpuscular Hemoglobin 31 pg (27-31); Mean Corpuscular Volume 94 fL (80-94); Mean Platelet Volume 9 um3 (7.4-10.4); Red Blood Count 3.84 10^6/ul (4.0-5.4); Red Cell Distribution Width 15 % (10.5-15); White Blood Count 5.4 10^3/ul (3.5-10.8)
[2017-04-10 06:08] LABS: BUN/Creatinine Ratio 15.8 (8-20); Calcium 8.9 mg/dL (8.6-10.3); EGFR African American 55.8 (>60); EGFR Non-African American 43.4 (>60); Potassium 4.4 mmol/L (3.5-5.0)
[2017-04-10] MEDS: Metoprolol Tartrate TAB* 25 MG PO SCH (08:47)
[2017-04-10] MEDS: Omeprazole CAP* 20 MG PO SCH (08:47)
[2017-04-10] MEDS: Magnesium Oxide TAB* 400 MG PO SCH (08:47)
[2017-04-10] MEDS: Acetaminophen TAB* 325 MG PO PRN ×2 (08:47→15:03)
[2017-04-10] MEDS: Aspirin EC Low Dose* 81 MG TAB.EC PO SCH (08:47)
[2017-04-10] MEDS: Calcitriol CAP* 0.25 MCG PO SCH (08:48)
--- NOTE | 2017-04-10 14:10 | PN ---
Subjective Date of Service: 04/10/17 Interval History: Patient seen and examined at bedside. Pt states that he is feeling better, but continues to have right sided rib pain. Claus fever, chills, shortness of breath , chest discomfort, cough, N/V/D. Family History: Unchanged from Admission Social History: Unchanged from Admission Past Medical History: Unchanged from Admission Objective Active Medications: Acetaminophen (Tylenol Tab*) 650 mg PO Q4H PRN Reason: FEVER/PAIN Aspirin (Aspirin Ec Low Dose*) 81 mg PO DAILY HORACIO Calcitriol (Rocaltrol Cap*) 0.5 mcg PO DAILY HORACIO Doxazosin Mesylate (Cardura Tab*) 1 mg PO BEDTIME HORACIO Heparin Sodium (Porcine) (Heparin Vial(*)) 5,000 units SUBCUT Q8HR HORACIO Azithromycin 500 mg/ Sodium (Chloride) 250 mls @ 250 mls/hr IVPB 1800 HORACIO Ceftriaxone Sodium 1,000 mg/ (Sodium Chloride) 50 mls @ 200 mls/hr IVPB 1730 HORACIO Magnesium Oxide (Magox 400 Tab*) 800 mg PO BID HORACIO Metoprolol Tartrate (Lopressor Tab*) 12.5 mg PO DAILY HORACIO Omeprazole (Prilosec Cap*) 20 mg PO DAILY HORACIO Ondansetron HCl (Zofran Inj*) 4 mg IV Q6H PRN Reason: NAUSEA Tramadol HCl (Ultram*) 50 mg PO BID PRN Reason: PAIN Vital Signs 04/09/17 04/09/17 04/09/17 15:24 16:59 18:59 Temperature 97.4 F Pulse Rate 63 Respiratory 17 16 18 Rate Blood Pressure 130/66 (mmHg) O2 Sat by Pulse 99 Oximetry 04/09/17 04/09/17 04/10/17 20:00 23:30 05:14 Temperature 98 F Pulse Rate 63 Respiratory 17 20 20 Rate Blood Pressure 139/84 (mmHg) O2 Sat by Pulse 97 Oximetry 04/10/17 04/10/17 04/10/17 05:19 07:14 07:28 Temperature 97.6 F 98.0 F Pulse Rate 63 66 Respiratory 16 18 18 Rate Blood Pressure 150/78 128/61 (mmHg) O2 Sat by Pulse 98 97 Oximetry 04/10/17 04/10/17 11:30 11:56 Temperature 97.3 F Pulse Rate 46 63 Respiratory Rate Blood Pressure 133/64 (mmHg) O2 Sat by Pulse 97 92 Oximetry Oxygen Devices in Use Now: None Appearance: NAD, sitting up in bed Eyes: No Scleral Icterus, PERRLA Ears/Nose/Mouth/Throat: Mucous Membranes Moist Respiratory: Symmetrical Chest Expansion and Respiratory Effort, Clear to Auscultation - , diminished Cardiovascular: NL Sounds; No Murmurs; No JVD, - - Heart rate irregular Extremities: No Edema Skin: No Rash or Ulcers Neurological: NL Muscle Strength and Tone, - - Alert and Oriented to self Lines/Tubes/Other Access: Clean, Dry and Intact Peripheral IV - site benign Nutrition: Taking PO's Result Diagrams: 04/10/17 05:02 04/10/17 05:02 Additional Lab and Data: Microbiology and Other Data: Microbiology 04/08/17 17:55 Nasal Screen MRSA (PCR)(JOSEMANUEL) - Final Nasal Mrsa Negative 04/08/17 17:55 Influenza Types A,B Antigen (JOSEMANUEL) - Final Nasal Specimen received for Influenza A/B Molecular testing Assess/Plan/Problems-Billing Assessment: Mr. Contreras is a 89 yo male with PMH significant for CKD, aflutrer, chronic pain, HTN, dementia, CHF, PVD who presented to the emergency room after a fall with altered mental status. - Patient Problems (1) Altered mental status Code(s): R41.82 - ALTERED MENTAL STATUS, UNSPECIFIED SNOMED Code(s): 529456064 Comment: - Improved - Suspect related to PNA (2) Pneumonia Code(s): J18.9 - PNEUMONIA, UNSPECIFIED ORGANISM SNOMED Code(s): 581009792 Comment: - Left Lower lobe infiltrate - Afebrile, leukocytosis resolved - Influenza A/B and Legionella and Strep urine antigens negative - Continue Azithromycin and change Ceftriaxone to Cefdinir (3) Fall Comment: - Continue Physical Therapy (4) HTN (hypertension) Code(s): I10 - ESSENTIAL (PRIMARY) HYPERTENSION SNOMED Code(s): 15529688 Comment: - Normotensive - Continue Lopressor and Cardura (5) Elevated troponin Code(s): R74.8 - ABNORMAL LEVELS OF OTHER SERUM ENZYMES SNOMED Code(s): 494176465 Comment: - Denies chest pain - Trop 0.04, 0.02 and 0.03 - Suspect demand ischemia from fall and infection (6) GERD (gastroesophageal reflux disease) Code(s): K21.9 - GASTRO-ESOPHAGEAL REFLUX DISEASE WITHOUT ESOPHAGITIS SNOMED Code(s): 210831804 Comment: - Continue PPI (7) CHF (congestive heart failure) Code(s): I50.9 - HEART FAILURE, UNSPECIFIED SNOMED Code(s): 92424206 Comment: - No signs of exacerbation - Last EF from 01/2016 60-65% (8) Atrial flutter Code(s): I48.92 - UNSPECIFIED ATRIAL FLUTTER SNOMED Code(s): 8333452 Comment: - Paroxysmal - Currently in sinus rhythm - Continue metoprolol. (9) CKD (chronic kidney disease) stage 3, GFR 30-59 ml/min Code(s): N18.3 - CHRONIC KIDNEY DISEASE, STAGE 3 (MODERATE) SNOMED Code(s): 285968412 Comment: - Creatinine is at baseline. (10) Dementia Code(s): F03.90 - UNSPECIFIED DEMENTIA WITHOUT BEHAVIORAL DISTURBANCE SNOMED Code(s): 70196558 Comment: - Supportive care (11) DVT prophylaxis Code(s): LYK5688 - SNOMED Code(s): 591190494 Comment: - SQ heparin (12) DNR (do not resuscitate) Status and Disposition: Inpatient. Stable for discharge back to [facility] today.
--- NOTE | 2017-04-10 15:48 | DS ---
DATE OF ADMISSION: 04/08/2017 DATE OF DISCHARGE: 04/10/2017 ATTENDING PHYSICIAN: Dr. Marin Felipe *(dictated by Caitlin Segura NP) PRIMARY CARE PROVIDER: Dr. Way PRIMARY DIAGNOSES: 1. Left lower lobe pneumonia. 2. Falls. SECONDARY DIAGNOSES: 1. Chronic kidney disease. 2. Chronic pain. 3. Hypertension. 4. Dementia. 5. Anxiety. 6. Congestive heart failure with an intact ejection fraction. 7. Peripheral vascular disease. STUDIES WHILE IN THE HOSPITAL: 1. Brain CT on 04/08/17. Radiologist Impression: No acute intracranial pathology. 2. Cervical spine CT on 04/08/17. Radiologist Impression: Degenerative joint disease and osteoarthritis. No acute osseous injury to the cervical spine. 3. Chest x-ray on 04/08/17. Radiologist Impression: Expiratory film with basilar infiltrate or atelectasis left greater than right. Suggest followup PA and lateral views. 4. Right rib x-ray on 04/08/17. Radiologist Impression: Nondisplaced fracture of the right 5th through 7th lateral ribs which appear old. 5. Abdomen pelvis CT on 04/18/17. Radiologist Impression: Patchy consolidation of the inferior lingula concerning for potential pneumonia. 2.0 x 2.6 cm denser than water sharply circumscribed lesion at the tail of the pancreas is relative low suspicion based on morphology. Given absence of prior exam to document stability with no relevant exams available on the [facility] [place] Tentative reassessment with noncontrast CT in 3 months' time if clinically indicated. Normal appendix documented. Mild sigmoid diverticulosis without findings for diverticulitis. Moderate renal cortical atrophy. Negative for obstructive uropathy. Negative for lymphadenopathy. Negative for aneurysm of the abdominal aorta. DISCHARGE MEDICATIONS: New home medications: 1. Azithromycin 250 mg oral daily for 3 more days. 2. Cefdinir 300 mg oral twice daily for 5 more days. Continue home medications: 1. Calcitriol 0.5 micrograms oral daily. 2. Omeprazole 20 mg oral daily. 3. Calcium carbonate 500 mg oral twice daily as needed for indigestion. 4. Aspirin 81 mg oral daily. 5. Acetaminophen 650 mg oral every 6 hours as needed for pain. 6. Magnesium oxide 800 mg oral twice daily. 7. Cardura 1 mg oral daily at bedtime. 8. Vitamin B12 1000 micrograms oral daily. 9. Metoprolol tartrate 12.5 mg oral daily. 10. Tramadol 50 mg oral twice daily. 11. Potassium chloride 20 mEq oral daily with meals. HISTORY OF PRESENT ILLNESS/HOSPITAL COURSE: Mr. Contreras is an 89-year-old male with past medical history significant for chronic kidney disease stage 4, depression, chronic pain, atrial flutter, hypertension, GERD, dementia, anxiety , congestive heart failure with preserved EF, peripheral vascular disease, vitamin B12 deficiency, who presented to the emergency room from [facility] where he resides after an unwitnessed fall. The patient had been found sitting on the floor and was not at his baseline mentation per staff. Patient was complaining of a headache and neck pain, along with right rib and abdominal pain. It was unclear whether he had lost consciousness and EMS was called to bring the patient to the emergency room. While in the emergency room the patient reported not feeling well and having abdominal discomfort in his lower abdomen. He denied any chest pain, shortness of breath. The patient did not recall falling out of bed. During his time in the emergency room he had labs revealing a white blood cell count of 11.6. Creatinine of 1.84 which was near his baseline. The troponin 0.04. He had a urinalysis. The patient also had a chest x-ray showing bibasilar infiltrate and atelectasis, left greater than the right. He had a cervical spine CT showing no acute osseous injury of the cervical spine. He had a brain CT showing no acute intracranial findings. He had an EKG showing atrial fibrillation, no acute signs of ischemia. Patient also had x-rays of his right ribs showing nondisplaced fractures of the 5th through 7th lateral ribs on the right which appeared to be old. Based on the patient's presentation, the hospitalists were asked to evaluate the patient for admission. During the patient's time his altered mental status improved. He was evaluated by physical therapy. He was felt to need cues to get standing, but once up he was able to walk with a rolling walker. The patient had some improvement in his bed mobility and his ambulation distance. It was felt he was a high fall risk due to his dementia and previous falls. The patient did have some limitations to ambulation due to pain. It was recommended the patient continue physical therapy. During his stay his leukocytosis resolved. He remained afebrile. He as initially started on ceftriaxone and received 2 doses, in addition to IV azithromycin, but he received 2 doses. As far as the elevated troponin, his troponin peaked at 0.04. The patient was chest pain free and had no signs of acute ischemia on EKG. The elevated troponin was felt to be related to demand ischemia from the fall and infection. The patient is eating well and is felt to be ready for discharge back to [facility] today. Mr. Contreras is stable for discharge to [facility] today. Vital signs are as follows: Temperature 97.3, heart rate 63, respiratory rate 18, O2 sat 97% on room air, blood pressure 133/64. DISCHARGE PLAN: Mr. Contreras will be discharged to [facility] today. His activity he as tolerated. He should be on fall precautions. A regular diet. I recommend continuing physical therapy. As far as the patient's left lower lobe pneumonia, he should be continued on cefdinir 300 mg oral twice daily for 5 more days, in addition to azithromycin 250 mg oral daily for 3 more days. As far as the patient's chronic pain he should be continued on his as needed tramadol and for his acute right rib pain he can be continued on acetaminophen 650 mg oral every 6 hours as needed for pain. The patient should be seen in followup by Dr. Way or provider at [facility]. He has an appointment with Dr. Way on April 14 at 11:30 am. In regards to the incidental findings of a 2.0 x 2.6 cm denser than water sharply circumscribed lesion at the tail of the pancreas, recommend a follow up non contrast CT in 3 months. The patient should return to the emergency room for any shortness of breath or chest discomfort. This is a summarized report of a complex medical history and hospital stay, for further details please see the entire medical record. Time for this discharge was 50 minutes, 25 minutes was spent with the patient discussing discharge plan and instructions. CONDITION ON DISCHARGE: Stable. LUIS JOHNSON [id number] CC: [facility]; Dr. Way * [id number]/[facility] #: [id number] MIKE
[2017-04-10 16:13] VITALS: BP 135/73
== END 2017-04-10 16:10 | DRG 194 ==
LOC: ED 09:07 → MEDTELE 13:30 → OBSVTOIN 04-09 15:02 → MED 04-09 23:23
PROVIDERS: ADMIT Internal Medicine; ATTEND Internal Medicine
DX: J18.1 Lobar pneumonia, unspecified organism (principal); N18.4 Chronic kidney disease, stage 4 (severe); S22.41XA Multiple fractures of ribs, right side, initial encounter for closed fracture; F03.90 Unspecified dementia, unspecified severity, without behavioral disturbance, psychotic disturbance, mood disturbance, and anxiety; I13.0 Hypertensive heart and chronic kidney disease with heart failure and stage 1 through stage 4 chronic kidney disease, or unspecified chronic kidney disease; I24.8 Other forms of acute ischemic heart disease; I50.9 Heart failure, unspecified; I48.92 Unspecified atrial flutter; W18.30XA Fall on same level, unspecified, initial encounter; Z66 Do not resuscitate; E05.90 Thyrotoxicosis, unspecified without thyrotoxic crisis or storm; I48.91 Unspecified atrial fibrillation; I25.10 Atherosclerotic heart disease of native coronary artery without angina pectoris; I73.9 Peripheral vascular disease, unspecified; K21.9 Gastro-esophageal reflux disease without esophagitis; F32.9 Major depressive disorder, single episode, unspecified; R40.2412 Glasgow coma scale score 13-15, at arrival to emergency department; G89.29 Other chronic pain; F41.9 Anxiety disorder, unspecified; M19.90 Unspecified osteoarthritis, unspecified site; E55.9 Vitamin D deficiency, unspecified; R74.8 Abnormal levels of other serum enzymes; X58.XXXA Exposure to other specified factors, initial encounter; K57.30 Diverticulosis of large intestine without perforation or abscess without bleeding; Y92.9 Unspecified place or not applicable; Z79.82 Long term (current) use of aspirin; Z88.5 Allergy status to narcotic agent; Z88.8 Allergy status to other drugs, medicaments and biological substances; Z88.1 Allergy status to other antibiotic agents; Z88.0 Allergy status to penicillin
CPT/HCPCS: 36415; 70450; 71010; 72125; 74176; 80048; 80053; 81003; 81015; 82140; 82550; 82553; 83605; 83690; 83735; 83880; 84443; 84484; 85025; 85610; 85730; 86140; 87086; 87502; 87641; 87899; 93005; A9270-GY; G0378; G8978-GP-CJ; G8979-GP-CI; J0456; J0696; J1644; J2405

== ENCOUNTER 2017-04-17 11:42 | Inpatient (IN) | payer MEDICARE, MEDICAID ==
[2017-04-17 14:07] LABS: Hematocrit 42 % (42-52); Hemoglobin 13.4 g/dl (14.0-18.0); Mean Corpuscular HGB Conc 32 g/dl (31-36); Mean Corpuscular Hemoglobin 30 pg (27-31); Mean Corpuscular Volume 93 fL (80-94); Mean Platelet Volume 8 um3 (7.4-10.4); Red Blood Count 4.47 10^6/ul (4.0-5.4); Red Cell Distribution Width 15 % (10.5-15); White Blood Count 11.8 10^3/ul (3.5-10.8)
[2017-04-17 14:26] LABS: Albumin 3.6 g/dL (3.2-5.2); BUN/Creatinine Ratio 18.9 (8-20); C Reactive Protein 182.88 mg/L (< 5.00); Calcium 9.4 mg/dL (8.6-10.3); EGFR African American 39.3 (>60); EGFR Non-African American 30.6 (>60); Globulin 3.9 g/dL (2-4); Potassium 5.3 mmol/L (3.5-5.0); Total Bilirubin 0.9 mg/dL (0.2-1.0); Total Protein 7.5 g/dL (6.4-8.9)
[2017-04-17] MEDS ORDERED: NS 0.9% 1000 ML* 1,000 ML IV ONE (14:57)
--- NOTE | 2017-04-17 16:49 | RAD ---
Indication: Diffuse abdominal pain. CT of the abdomen and pelvis was performed without oral or IV contrast administration. Coronal and sagittal reconstructed images were obtained. Comparison is made with previous exam dated April 08, 2017. Lung bases demonstrate dependent changes in the lung merritt with slight fibrosis. Pleural fat is noted. Heart demonstrates no pericardial effusion. Liver is normal in size. No focal lesions or intrahepatic ductal dilatation is noted. The gallbladder is distended. No pericholecystic fluid or wall thickening is identified. The spleen is normal in size. The pancreas demonstrates atrophy with suggestion of a pancreatic cyst in the body measuring up to 2.7 cm. The possibility of a cystic lesion within the pancreas should BE considered. Common duct is not dilated. No adrenal masses are noted. The kidneys demonstrate symmetric nephrograms. No hydronephrosis is noted. No retroperitoneal lymphadenopathy is noted. CT of the pelvis demonstrates no retroperitoneal or pelvic lymphadenopathy. Urinary bladder is distended. No hernias are noted. There are fractures of left inferior pubic rami which is not displaced. No obvious hernias are noted. No free fluid is identified. IMPRESSION: Comminuted fracture of the left inferior and superior pubic rami just adjacent to the pubic symphysis. This was not present on April 08, 2017. There is low density in the body of the pancreas measuring 2.6 cm in a background of an atrophic pancreas. No pancreatic duct dilatation is noted. A cystic mass of the pancreas is not excluded. This is unchanged from April 08, 2017. No evidence of obstructive uropathy is noted.
[2017-04-17] MEDS ORDERED: traMADol TAB* 50 MG PO SCH (18:00)
[2017-04-17] MEDS ORDERED: Ondansetron INJ* 2 MG/ML VIAL IV PRN (18:32)
[2017-04-17] MEDS ORDERED: Acetaminophen TAB* 325 MG PO PRN (18:32)
[2017-04-17] MEDS ORDERED: Calcium Carbonate CHEW TAB* 500 MG (TUMS) PO PRN (18:34)
--- NOTE | 2017-04-17 20:28 | RAD ---
Indication: Right upper quadrant pain. Real-time sonography of the right upper quadrant was performed. The liver measures 17.1 cm in length. No focal lesions are noted. The liver is diffusely increased in echogenicity consistent with hepatic steatosis. Area of focal fatty sparing is noted. Gallbladder demonstrates echogenic material in the dependent portion which may represent sludge within the gallbladder. No pericholecystic fluid or wall thickening is identified. The right kidney was not visualized. The pancreas demonstrates questionable lesion in the body or tail of the pancreas. Aorta is unremarkable. IMPRESSION: Hepatic steatosis. Focal fatty sparing is noted adjacent to the gallbladder fossa. Sludge in the gallbladder. Question of pancreatic cystic lesion in the body of the pancreas.
[2017-04-17] MEDS: Acetaminophen TAB* 325 MG PO SCH (20:33)
[2017-04-17] MEDS: Heparin VIAL(*) 5000 UNITS/ML VIAL (FIVE THOUSAND) SUBCUT SCH (20:34)
[2017-04-17] MEDS: Magnesium Oxide TAB* 400 MG PO SCH (20:34)
[2017-04-17] MEDS: Metoprolol Tartrate TAB* 25 MG PO SCH (20:35)
[2017-04-17] MEDS: Doxazosin TAB* 2 MG PO SCH (20:53)
--- NOTE | 2017-04-17 21:59 | ED ---
Stephan Stewart Alok, scribed for Harsha Traylor MD on 04/17/17 at 1346 . Abdominal Pain/Male - HPI Summary HPI Summary: 89M presents to the ED for diffuse abd pain. Pt state he is able to eat and his last BM was 2 days ago. Pt denies hematochezia. PMHx includes atrial fibrillation, CAD, PVD, spinal stenosis, HTN, hyperparathyroidism, GERD, CKD, and hypomagnesium. - History of Current Complaint Chief Complaint: EDAbdPain Stated Complaint: ABD PAIN Time Seen by Provider: 04/17/17 13:10 Hx Obtained From: Patient Severity Initially: Moderate Severity Currently: Moderate Pain Intensity: 5 Pain Scale Used: 0-10 Numeric Location: Diffuse Associated Signs And Symptoms: Negative: Fever, Blood in Stool, Decreased Appetite - Allergies/Home Medications Allergies/Adverse Reactions: Allergies Allergy/AdvReac Type Severity Reaction Status Date / Time Codeine Allergy Intermediate Vomiting Verified 04/08/17 10:41 Donepezil Allergy Unknown Verified 04/08/17 10:41 Reaction Details Neomycin Allergy Unknown Verified 04/08/17 10:41 Reaction Details Penicillins Allergy Unknown Verified 04/08/17 10:41 Reaction Details PMH/Surg Hx/FS Hx/Imm Hx Endocrine/Hematology History: Reports: Hx Thyroid Disease - hyperthyroid, Other Endocrine/Hematological Disorders - Hx of hypomagnesemia Denies: Hx Anticoagulant Therapy - pt denies Cardiovascular History: Reports: Hx Atrial Fibrillation, Hx Coronary Artery Disease, Hx Hypertension, Hx Peripheral Vascular Disease, Other Cardiovascular Problems/Disorders - PVD, CHRONIC RENAL FAILURE GI History: Reports: Hx Gastroesophageal Reflux Disease History: Reports: Hx Chronic Renal Failure Musculoskeletal History: Reports: Other Musculoskeletal History - L rotator cuff repair Sensory History: Denies: Hx Contacts or Glasses, Hx Hearing Aid, Hx Hearing Problem Opthamlomology History: Denies: Hx Contacts or Glasses Neurological History: Reports: Hx Dementia Psychiatric History: Reports: Hx Depression - Surgical History Surgery Procedure, Year, and Place: hernia repair, L rotator cuff repair Infectious Disease History: No Infectious Disease History: Denies: Hx Clostridium Difficile, Hx Hepatitis, Hx Human Immunodeficiency Virus (HIV), Hx of Known/Suspected MRSA, Hx Shingles, Hx Tuberculosis, History Other Infectious Disease, Traveled Outside the [place] in Last 30 Days - Family History Known Family History: Positive: Other - No- DVT - Social History Occupation: Retired Alcohol Use: None Hx Substance Use: No Substance Use Type: Reports: None Hx Tobacco Use: No Smoking Status (MU): Never Smoked Tobacco Review of Systems Negative: Fever Positive: Abdominal Pain. Negative: Other - Hematochezia All Other Systems Reviewed And Are Negative: Yes Physical Exam Triage Information Reviewed: Yes Vital Signs On Initial Exam: Initial Vitals Temp Pulse Resp BP Pulse Ox 98.8 F 89 17 115/81 96 04/17/17 12:08 04/17/17 12:08 04/17/17 12:08 04/17/17 12:08 04/17/17 12:08 Vital Signs Reviewed: Yes Appearance: Positive: Well-Appearing, No Pain Distress Skin: Positive: Warm, Skin Color Reflects Adequate Perfusion, Dry Head/Face: Positive: Normal Head/Face Inspection Eyes: Positive: Normal ENT: Positive: Normal ENT inspection Neck: Positive: Supple, Nontender Respiratory/Lung Sounds: Positive: Clear to Auscultation, Breath Sounds Present Cardiovascular: Positive: RRR Abdomen Description: Positive: Soft, Other: - diffuse abd tenderness Bowel Sounds: Positive: Present Musculoskeletal: Positive: Normal Neurological: Positive: Normal Psychiatric: Positive: Normal, Affect/Mood Appropriate Diagnostics - Vital Signs Vital Signs Temp Pulse Resp BP Pulse Ox 04/17/17 12:11 98.5 F 89 18 115/81 96 04/17/17 12:08 98.8 F 89 17 115/81 96 - Laboratory Lab Results: Lab Results 04/17/17 04/17/17 04/17/17 Range/Units 13:58 13:58 13:58 WBC 11.8 H (3.5-10.8) 10^3/ul RBC 4.47 (4.0-5.4) 10^6/ul Hgb 13.4 L (14.0-18.0) g/dl Hct 42 (42-52) % MCV 93 (80-94) fL MCH 30 (27-31) pg MCHC 32 (31-36) g/dl RDW 15 (10.5-15) % Plt Count 206 (150-450) 10^3/ul MPV 8 (7.4-10.4) um3 Neut % (Auto) 84.4 H (38-83) % Lymph % (Auto) 7.0 L (25-47) % Cole % (Auto) 7.7 (1-9) % Eos % (Auto) 0.4 (0-6) % Baso % (Auto) 0.5 (0-2) % Absolute Neuts (auto) 10.0 H (1.5-7.7) 10^3/ul Absolute Lymphs (auto) 0.8 L (1.0-4.8) 10^3/ul Absolute Monos (auto) 0.9 H (0-0.8) 10^3/ul Absolute Eos (auto) 0.1 (0-0.6) 10^3/ul Absolute Basos (auto) 0.1 (0-0.2) 10^3/ul Absolute Nucleated RBC 0 10^3/ul Nucleated RBC % 0 Sodium 130 L (133-145) mmol/L Potassium 5.3 H (3.5-5.0) mmol/L Chloride 96 L (101-111) mmol/L Carbon Dioxide 28 (22-32) mmol/L Anion Gap 6 (2-11) mmol/L BUN 39 H (6-24) mg/dL Creatinine 2.06 H (0.67-1.17) mg/dL Est GFR ( Amer) 39.3 (>60) Est GFR (Non-Af Amer) 30.6 (>60) BUN/Creatinine Ratio 18.9 (8-20) Glucose 106 H (70-100) mg/dL Lactic Acid 1.0 (0.5-2.0) mmol/L Calcium 9.4 (8.6-10.3) mg/dL Total Bilirubin 0.90 (0.2-1.0) mg/dL AST 17 (13-39) U/L ALT 14 (7-52) U/L Alkaline Phosphatase 83 (34-104) U/L C-Reactive Protein 182.88 H (< 5.00) mg/L Total Protein 7.5 (6.4-8.9) g/dL Albumin 3.6 (3.2-5.2) g/dL Globulin 3.9 (2-4) g/dL Albumin/Globulin Ratio 0.9 L (1-3) Lipase 18 (11.0-82.0) U/L Prostate Specific Ag 1.083 (0-4.000) ng/mL Result Diagrams: 04/17/17 13:58 04/17/17 13:58 Lab Statement: Any lab studies that have been ordered have been reviewed, and results considered in the medical decision making process. - CT Abd/Pel CT CT Interpretation: Positive (See Comments) - IMPRESSION: Comminuted fracture of the left inferior and superior pubic rami just adjacent to the pubic symphysis. This was not present on April 08, 2017. There is low density in the body of the pancreas measuring 2.6 cm in a background of an atrophic pancreas. No pancreatic duct dilatation is noted. A cystic mass of the pancreas is not excluded. This is unchanged from April 08, 2017. No evidence of obstructive uropathy is noted. CT Interpretation Completed By: Radiologist Abdominal Pain Fem Course/Dx - Course Course Of Treatment: Mr. Contreras is difficult to get a reliable hisptory from as he suffers from dementia. He C/O abdominal pain and had pain out of proportion to tenderness. He was found to have a new pubic fracture and that is clearly some of his pain. His WBC's were 11 and his CRP quite elevated. I was concerned about ischemic bowell although his lactate was normal. This is a late metric and I asked the hospitalist to see him. - Diagnoses Provider Diagnoses: Abdominal pain - Provider Notifications Discussed Care Of Patient With: Dr. Mandel (Hospitalist) @ [phone] - Will admit pt Discharge - Discharge Plan Condition: Stable Disposition: ADMITTED TO [facility] The documentation as recorded by the Stephan boyd Alok accurately reflects the service I personally performed and the decisions made by me, Harsha Traylor MD.
[2017-04-17] MEDS: traMADol TAB* 50 MG PO PRN (22:30)
[2017-04-17] MEDS: NS 0.9% 1000 ML* 1,000 ML IV SCH (22:31)
--- NOTE | 2017-04-18 00:38 | HP ---
HISTORY AND PHYSICAL: DATE OF ADMISSION: 04/17/17 PRIMARY CARE PROVIDER: Agnes Way MD CHIEF COMPLAINT: Abdominal pain. HISTORY OF PRESENT ILLNESS: Mr. Contreras is an 89-year-old male, resident of [facility] who has a history of dementia, stage 4 chronic kidney disease, chronic pain, atrial flutter, hypertension, heart failure with a preserved EF, and recent hospitalization for left lower lobe pneumonia and falls from to 04/10/17, who presented to the emergency room with complaints of abdominal pain. The patient himself is a very poor historian. When asked if he has abdominal pain, he states no; however, when asked if he has any chest pain, he states yes I have pain all over and that it is spreading. The patient was recently hospitalized from 04/08/17 to 04/10/17 with altered mental status following a fall. At that time, he underwent numerous imaging studies that revealed possible left lower lobe pneumonia, right rib fractures in ribs 5 through 7 that were felt to be old, and a CT scan of the abdomen and pelvis, which showed a 2.0 x 2.6 cm denser than water sharply circumscribed lesion at the tail of the pancreas, which is felt to be relatively low suspicion based on morphology; however, given absence of prior exam to document stability, it was recommended that the patient have a noncontrast CT scan in approximately 3 months. The patient today again has complaints of abdominal pain. He is unable to give me any reliable information related to this. At some point, the patient; however, was able to state that the pain had been unchanged from 1 week ago. He has been unable to point to the exact location of where the pain is; however, upon palpation of the right upper quadrant, he is able to then localize the pain to the right upper quadrant and right mid ribs. In the emergency room, the patient was also found to have a comminuted fracture of the left inferior and superior pubic rami just adjacent to the pubic symphysis that was not present on the Apr 08 2017 exam. The pancreatic lesion was noted to be unchanged on the scan. PAST MEDICAL HISTORY: All according to prior documentation. 1. CKD, stage 4. 2. Depression. 3. Chronic pain. 4. Atrial flutter. 5. Hypertension. 6. GERD. 7. Dementia. 8. Anxiety. 9. Heart failure with preserved EF. 10. Peripheral vascular disease. 11. Vitamin D deficiency. PAST SURGICAL HISTORY: Unobtainable from the patient, though it does appear that he has had at least a right cataract extraction. MEDICATIONS: 1. Tramadol 50 mg p.o. b.i.d. 2. Potassium chloride 20 mEq p.o. daily. 3. Omeprazole 20 mg p.o. daily. 4. Metoprolol tartrate 12.5 mg p.o. daily. 5. Magnesium oxide 800 mg p.o. b.i.d. 6. Doxazosin 1 mg p.o. at bedtime. 7. Vitamin B12 1000 mcg p.o. daily. 8. Calcium carbonate 500 mg p.o. b.i.d. p.r.n. indigestion. 9. Calcitriol 0.5 mg p.o. daily. 10. Aspirin 81 mg p.o. daily. 11. Tylenol 650 mg p.o. q.6 hours p.r.n. pain. ALLERGIES: CODEINE, ARICEPT, NEOMYCIN, and PENICILLIN. FAMILY HISTORY: Unobtainable from the patient due to his dementia. SOCIAL HISTORY: The patient resides at [place]. Further social history is unobtainable from the patient. Next of kin listed on the demographic is his daughter, Harleen Quick, phone number . REVIEW OF SYSTEMS: Essentially unobtainable from the patient due to his dementia. He initially denies abdominal pain, but then later states that he has pain all over and again complains of pain on direct palpation of the right upper quadrant of the abdomen. PHYSICAL EXAMINATION GENERAL: The patient is a well-developed elderly male, lying in a stretcher, in no acute distress. VITAL SIGNS: Blood pressure 113/83, pulse 84, respirations 16, temp 98.5, and O2 sat 95% on room air. HEENT: Pupils are approximately 2 mm, they are round. There is evidence of at least right cataract extraction. Extra-ocular muscles are intact. Oropharynx is clear. Oral mucosa is dry. The patient wears upper dentures and edentulous on the bottom. There is no submandibular, cervical, or supraclavicular adenopathy. Thyroid is not enlarged. No thyroid nodules are noted. PULMONARY: Lungs are clear to auscultation bilaterally. The patient does have pain upon palpation of the right lateral ribs. CARDIAC: Normal S1, S2. Heart rate is tachycardic. His rhythm is slightly irregular. I do not appreciate any murmurs. There is no lower extremity edema. ABDOMEN: Bowel sounds are present. Abdomen is soft, slightly rotund. He screams on pain upon palpation of the right upper quadrant. He does not scream out of pain or appear to be in pain with palpation of the other quadrants. MUSCULOSKELETAL: There is no cyanosis or clubbing of the digits. There is full active range of motion of the upper extremities. Lower extremity range of motion is not tested. SKIN: Warm and dry. There are no rashes. There is some faint bruising on the patient's abdomen. NEUROLOGIC: Cranial nerves II through XII appear to be grossly intact. Sensation is intact to light touch throughout. Strength is 5/5 and symmetric in both upper and lower extremities bilaterally. PSYCH: He is alert. When asked where he is, he states that he is in a place where he gets better. He is unable to state the word, hospital. He is unable to tell me the month. He is unable to tell me where he resides. DIAGNOSTIC STUDIES/LAB DATA: WBC 11.8, hemoglobin 13.4, hematocrit 42, and platelets 206. Sodium 130, potassium 5.3, chloride 96, CO2 28, BUN 39, creatinine 2.06, glucose 106, lactic acid 1.0, and calcium 9.4. Bilirubin 0.9, AST 17, ALT 14, and alk phos 83. CRP 182.88. Albumin 3.6. Lipase 18. PSA pending. UA pending. Abdomen and pelvis CT reveals comminuted fracture of the left inferior and superior pubic rami just adjacent to the pubic symphysis. This was not present on the CT from 04/08/17. There is low density lesion in the body of the pancreas, measuring up to 2.6 cm in the background of an atrophic pancreas. No pancreatic duct dilatation is noted. A cystic mass of the pancreas is not excluded. This is unchanged from 04/08/17. No evidence of obstructive uropathy. ASSESSMENT AND PLAN: Mr. Contreras is an 89-year-old male with a history of dementia who provides very limited history who presents to the emergency room approximately 1 week after [place] [facility] [place] with complaints of persistent abdominal pain. 1. Abdominal pain: This appears to be localized to the right upper quadrant. I will go ahead and get a right upper quadrant ultrasound. The patient's creatinine is elevated above his baseline making us want to avoid obtaining a contrast of the CT scan at this point. I am, however, suspicious that the patient's abdominal pain may in fact be related to rib fractures. The patient is exquisitely tender over the right lateral ribs. He had rib x-rays during his last hospitalization that revealed nondisplaced fractures of ribs 5 through 7; however, these were felt to be old. However, given the patient's recent fall and now continuous severe pain of the right ribs, I suspect these actually are acute. The patient does have a very mildly elevated white blood cell count of 11.8. He has no other signs of infection to go along with this; however, again the patient will be undergoing a right upper quadrant ultrasound. Overall , he appears to be volume deplete with his elevated creatinine, elevated potassium, low chloride, and elevated BUN from his previous baseline. The patient will be hydrated and the white blood cell count will be followed. 2. Left inferior and superior pubic rami fractures: This had to have occurred sometime between April 08 and today. I do not have report from [place] that he had another fall since his discharge. It is possible that these fractures were just missed previously. He will be weightbearing as tolerated. Pain control will need to be utilized. We will continue p.r.n. tramadol and change to standing Tylenol 975 mg q.6 hours. 3. Hyperkalemia: Again, I suspect this is secondary to volume depletion and the fact that he takes potassium supplements. His potassium will he held and a followup potassium level will be obtained tomorrow morning. 4. Stage 3 to almost 4 chronic kidney disease: The patient's creatinine is worse now than his creatinine during his prior hospitalization; however, over the last 1 year, his creatinine has been in the 2 range. 5. Elevated CRP: It is unclear what is driving this up. Again, I do not believe the patient is infected at this point as there is nothing clearly evident; however, given how severe the patient's abdominal pain is, mesenteric ischemia could be considered; however, his lactic acid is normal. Again, I do not have a great explanation for his elevated CRP, but perhaps the rib fractures are contributing. 6. Atrial flutter: The patient is mildly tachycardic at this point. I will go ahead and continue his metoprolol, but increase this is to b.i.d. 7. Hypertension: The patient's blood pressure is low normal. We would need to be cautious with the increase of metoprolol. I am going to be hydrating the patient, so this may help drive up his blood pressure. 8. Gastroesophageal reflux disease: The patient will be continued on omeprazole 20 mg daily. 9. Dementia: Supportive care will be utilized. 10. DVT prophylaxis: According to the Adult Thrombosis Prophylaxis Risk Factor Assessment Guide, the patient has a total risk factor score of 3, making him high risk. He will be placed on heparin 5000 units subcutaneous q.8 hours. 11. Code status: The patient's code status is DNR. I will confirm this with the patient's daughter. TIME SPENT: Sixty-five minutes was spent admitting this patient of which greater than half was spent [id number] with the patient attempting to obtain history and performing physical exam. CC: Dr. Way * [id number]/[facility] #: [id number] MTDJose Enrique
[2017-04-18] MEDS: Acetaminophen TAB* 325 MG PO SCH ×4 (01:57→20:48)
[2017-04-18] MEDS: Heparin VIAL(*) 5000 UNITS/ML VIAL (FIVE THOUSAND) SUBCUT SCH ×3 (05:58→20:49)
--- NOTE | 2017-04-18 08:05 | PN ---
Subjective Date of Service: 04/18/17 Interval History: Pt states he is feeling ok. He denies pain until I palpate his lateral R ribs. He answers "yes" to being SOB but is lying flat and not tachypnic. Objective Active Medications: Acetaminophen (Tylenol Tab*) 975 mg PO 0200,0800,1400,2000 [facility] Last Admin: 04/18/17 06:46 Dose: 975 mg Aspirin (Aspirin Ec Low Dose*) 81 mg PO DAILY [facility] Calcitriol (Rocaltrol Cap*) 0.5 mcg PO DAILY [facility] Calcium Carbonate (Tums*) 500 mg PO BID PRN PRN Reason: INDIGESTION Doxazosin Mesylate (Cardura Tab*) 1 mg PO BEDTIME [facility] Last Admin: 04/17/17 20:53 Dose: 1 mg Heparin Sodium (Porcine) (Heparin Vial(*)) 5,000 units SUBCUT Q8HR [facility] Last Admin: 04/18/17 05:58 Dose: 5,000 units Sodium Chloride (Ns 0.9% 1000 Ml*) 1,000 mls @ 75 mls/hr IV PER RATE [facility] Last Admin: 04/17/17 22:31 Dose: 75 mls/hr Magnesium Oxide (Magox 400 Tab*) 800 mg PO BID [facility] Last Admin: 04/17/17 20:34 Dose: 800 mg Metoprolol Tartrate (Lopressor Tab*) 12.5 mg PO BID [facility] Last Admin: 04/17/17 20:35 Dose: 12.5 mg Morphine Sulfate (Morphine Inj (Syringe)*) 2 mg IV Q4H PRN PRN Reason: PAIN - MILD Omeprazole (Prilosec Cap*) 20 mg PO DAILY [facility] Ondansetron HCl (Zofran Inj*) 4 mg IV Q6H PRN PRN Reason: NAUSEA Tramadol HCl (Ultram*) 50 mg PO BID PRN PRN Reason: pain Last Admin: 04/17/17 22:30 Dose: 50 mg Vital Signs 04/17/17 04/17/17 04/17/17 18:00 19:00 19:21 Temperature Pulse Rate 97 64 105 Respiratory 23 22 20 Rate Blood Pressure 130/90 (mmHg) O2 Sat by Pulse 95 94 94 Oximetry 04/17/17 04/17/17 04/17/17 20:20 22:30 23:46 Temperature 98.2 F 98.4 F Pulse Rate 109 92 Respiratory 16 17 20 Rate Blood Pressure 145/67 88/62 (mmHg) O2 Sat by Pulse 96 94 Oximetry 04/18/17 04/18/17 04/18/17 00:30 04:10 07:24 Temperature 97.6 F Pulse Rate 86 Respiratory 16 20 18 Rate Blood Pressure 118/67 (mmHg) O2 Sat by Pulse 95 Oximetry 04/18/17 07:26 Temperature 98.0 F Pulse Rate 92 Respiratory 16 Rate Blood Pressure 109/63 (mmHg) O2 Sat by Pulse 97 Oximetry Oxygen Devices in Use Now: None - 97% Appearance: Elderly male lying flat in bed, NAD Eyes: No Scleral Icterus Ears/Nose/Mouth/Throat: Mucous Membranes Moist Respiratory: Symmetrical Chest Expansion and Respiratory Effort, Clear to Auscultation Cardiovascular: NL Sounds; No Murmurs; No JVD, - - irregularly irregular, controlled rate Abdominal: - - BS+ soft, ND, mildly tender to palpation of the RUQ Extremities: No Clubbing, Cyanosis Skin: No Rash or Ulcers, No Nodules or Sclerosis Neurological: - - pleasantly confused Result Diagrams: 04/18/17 08:15 04/18/17 08:15 Additional Lab and Data: Lab Results 04/17/17 04/17/17 04/17/17 Range/Units 13:58 13:58 13:58 WBC 11.8 H (3.5-10.8) 10^3/ul RBC 4.47 (4.0-5.4) 10^6/ul Hgb 13.4 L (14.0-18.0) g/dl Hct 42 (42-52) % MCV 93 (80-94) fL MCH 30 (27-31) pg MCHC 32 (31-36) g/dl RDW 15 (10.5-15) % Plt Count 206 (150-450) 10^3/ul MPV 8 (7.4-10.4) um3 Neut % (Auto) 84.4 H (38-83) % Lymph % (Auto) 7.0 L (25-47) % Wright % (Auto) 7.7 (1-9) % Eos % (Auto) 0.4 (0-6) % Baso % (Auto) 0.5 (0-2) % Absolute Neuts (auto) 10.0 H (1.5-7.7) 10^3/ul Absolute Lymphs (auto) 0.8 L (1.0-4.8) 10^3/ul Absolute Monos (auto) 0.9 H (0-0.8) 10^3/ul Absolute Eos (auto) 0.1 (0-0.6) 10^3/ul Absolute Basos (auto) 0.1 (0-0.2) 10^3/ul Absolute Nucleated RBC 0 10^3/ul Nucleated RBC % 0 Sodium 130 L (133-145) mmol/L Potassium 5.3 H (3.5-5.0) mmol/L Chloride 96 L (101-111) mmol/L Carbon Dioxide 28 (22-32) mmol/L Anion Gap 6 (2-11) mmol/L BUN 39 H (6-24) mg/dL Creatinine 2.06 H (0.67-1.17) mg/dL Est GFR ( Amer) 39.3 (>60) Est GFR (Non-Af Amer) 30.6 (>60) BUN/Creatinine Ratio 18.9 (8-20) Glucose 106 H (70-100) mg/dL Lactic Acid 1.0 (0.5-2.0) mmol/L Calcium 9.4 (8.6-10.3) mg/dL Total Bilirubin 0.90 (0.2-1.0) mg/dL AST 17 (13-39) U/L ALT 14 (7-52) U/L Alkaline Phosphatase 83 (34-104) U/L C-Reactive Protein 182.88 H (< 5.00) mg/L Total Protein 7.5 (6.4-8.9) g/dL Albumin 3.6 (3.2-5.2) g/dL Globulin 3.9 (2-4) g/dL Albumin/Globulin Ratio 0.9 L (1-3) Lipase 18 (11.0-82.0) U/L Prostate Specific Ag 1.083 (0-4.000) ng/mL Microbiology and Other Data: Microbiology 04/18/17 02:00 Nasal Screen MRSA (PCR)([facility]) - Final Nasal Mrsa Negative Assess/Plan/Problems-Billing Mr Contreras is an 89 yo M who has a h/o dementia, recent hospitalization for LLL pneumonia, who presented to the ER with c/o abdominal pain. - Patient Problems (1) Abdominal pain Current Visit: Yes Status: Acute Code(s): R10.9 - UNSPECIFIED ABDOMINAL PAIN SNOMED Code(s): 30036938 Comment: I suspect this is secondary to his rib fractures. He had no pain on exam of the abdomen today but he remains exquistely tender over the R lateral ribs. Will continue to follow his abdominal exam and see if anything declares itself. (2) CKD (chronic kidney disease) stage 3, GFR 30-59 ml/min Current Visit: Yes Status: Acute Code(s): N18.3 - CHRONIC KIDNEY DISEASE, STAGE 3 (MODERATE) SNOMED Code(s): 010588004 Comment: Creatinine is close to baseline. Will continue to monitor. (3) Atrial flutter Current Visit: Yes Status: Chronic Code(s): I48.92 - UNSPECIFIED ATRIAL FLUTTER SNOMED Code(s): 6998826 Comment: Rate is controlled. Continue metoprolol-I increased the frequency on admission for better control. (4) DNR (do not resuscitate) Current Visit: Yes Status: Acute Comment: BP is under good control. Continue current regimen. (5) GERD (gastroesophageal reflux disease) Current Visit: Yes Status: Chronic Code(s): K21.9 - GASTRO-ESOPHAGEAL REFLUX DISEASE WITHOUT ESOPHAGITIS SNOMED Code(s): 573207571 Comment: Continue omeprazole. (6) Dementia Current Visit: Yes Status: Chronic Code(s): F03.90 - UNSPECIFIED DEMENTIA WITHOUT BEHAVIORAL DISTURBANCE SNOMED Code(s): 63848319 Comment: Continue supportive care. (7) DVT prophylaxis Current Visit: Yes Status: Acute Code(s): ISC0962 - SNOMED Code(s): 504963591 Comment: SQ heparin (8) HTN (hypertension) Current Visit: No Status: Chronic Code(s): I10 - ESSENTIAL (PRIMARY) HYPERTENSION SNOMED Code(s): 58029406 Comment: - Normotensive - Continue Lopressor and Cardura
[2017-04-18] MEDS: Calcitriol CAP* 0.25 MCG PO SCH (08:12)
[2017-04-18] MEDS: Magnesium Oxide TAB* 400 MG PO SCH ×2 (08:12→20:48)
[2017-04-18] MEDS: Metoprolol Tartrate TAB* 25 MG PO SCH ×2 (08:12→20:49)
[2017-04-18] MEDS: Omeprazole CAP* 20 MG PO SCH (08:12)
[2017-04-18] MEDS: Aspirin EC Low Dose* 81 MG TAB.EC PO SCH (08:12)
[2017-04-18] MEDS ORDERED: Potassium Chlor TAB* 10 MEQ TAB.ER PO SCH (08:30)
[2017-04-18 08:33] LABS: Hematocrit 37 % (42-52); Mean Corpuscular HGB Conc 33 g/dl (31-36); Mean Corpuscular Hemoglobin 30 pg (27-31); Mean Corpuscular Volume 93 fL (80-94); Mean Platelet Volume 8 um3 (7.4-10.4); Red Blood Count 3.94 10^6/ul (4.0-5.4); Red Cell Distribution Width 14 % (10.5-15); White Blood Count 9.2 10^3/ul (3.5-10.8)
[2017-04-18 08:45] LABS: BUN/Creatinine Ratio 20.3 (8-20); Calcium 8.3 mg/dL (8.6-10.3); EGFR African American 40.2 (>60); EGFR Non-African American 31.3 (>60); Potassium 4.6 mmol/L (3.5-5.0)
[2017-04-18] MEDS ORDERED: Metoprolol Tartrate TAB* 25 MG PO SCH (09:00)
[2017-04-18] MEDS: NS 0.9% 1000 ML* 1,000 ML IV SCH (11:19)
[2017-04-18 15:23] LABS: Urine Bacteria Absent (Absent); Urine Bilirubin Negative (Negative); Urine Glucose Negative (Negative); Urine Nitrite Negative (Negative)
[2017-04-18] MEDS: metroNIDAZOLE TAB* 250 MG PO SCH ×2 (17:15→20:48)
[2017-04-18] MEDS: Doxazosin TAB* 2 MG PO SCH (20:47)
[2017-04-19] MEDS: Acetaminophen TAB* 325 MG PO SCH ×3 (03:12→09:20)
[2017-04-19] MEDS: Heparin VIAL(*) 5000 UNITS/ML VIAL (FIVE THOUSAND) SUBCUT SCH ×3 (06:30→22:50)
[2017-04-19] MEDS: Magnesium Oxide TAB* 400 MG PO SCH (09:08)
[2017-04-19] MEDS: Omeprazole CAP* 20 MG PO SCH (09:08)
[2017-04-19] MEDS: Aspirin EC Low Dose* 81 MG TAB.EC PO SCH (09:08)
[2017-04-19] MEDS: metroNIDAZOLE TAB* 250 MG PO SCH ×2 (09:08→09:33)
[2017-04-19] MEDS: Calcitriol CAP* 0.25 MCG PO SCH ×2 (09:08→10:41)
[2017-04-19] MEDS: Metoprolol Tartrate TAB* 25 MG PO SCH ×2 (09:09→22:47)
[2017-04-19] MEDS: traMADol TAB* 50 MG PO PRN (09:09)
[2017-04-19] MEDS: Vancomycin CAP* 125 MG CAP PO SCH ×4 (10:41→22:47)
--- NOTE | 2017-04-19 10:56 | PN ---
Subjective Date of Service: 04/19/17 Interval History: Pt states he is having abdominal pain. He is unable to localize the pain. He feels as if he needs to have a BM. Pt has been refusing the flagyl because of a bitter taste. Objective Active Medications: Acetaminophen (Tylenol Tab*) 975 mg PO 0200,0800,1400,2000 [facility] Last Admin: 04/19/17 09:20 Dose: Not Given Aspirin (Aspirin Ec Low Dose*) 81 mg PO DAILY [facility] Last Admin: 04/19/17 09:08 Dose: 81 mg Calcitriol (Rocaltrol Cap*) 0.5 mcg PO DAILY [facility] Last Admin: 04/19/17 10:41 Dose: 0.5 mcg Calcium Carbonate (Tums*) 500 mg PO BID PRN PRN Reason: INDIGESTION Doxazosin Mesylate (Cardura Tab*) 1 mg PO BEDTIME [facility] Last Admin: 04/18/17 20:47 Dose: 1 mg Heparin Sodium (Porcine) (Heparin Vial(*)) 5,000 units SUBCUT Q8HR [facility] Last Admin: 04/19/17 06:30 Dose: 5,000 units Sodium Chloride (Ns 0.9% 1000 Ml*) 1,000 mls @ 75 mls/hr IV PER RATE [facility] Last Admin: 04/18/17 11:19 Dose: 75 mls/hr Metoprolol Tartrate (Lopressor Tab*) 12.5 mg PO BID [facility] Last Admin: 04/19/17 09:09 Dose: 12.5 mg Morphine Sulfate (Morphine Inj (Syringe)*) 2 mg IV Q4H PRN PRN Reason: PAIN - MILD Omeprazole (Prilosec Cap*) 20 mg PO DAILY [facility] Last Admin: 04/19/17 09:08 Dose: 20 mg Ondansetron HCl (Zofran Inj*) 4 mg IV Q6H PRN PRN Reason: NAUSEA Tramadol HCl (Ultram*) 50 mg PO BID PRN PRN Reason: pain Last Admin: 04/19/17 09:09 Dose: 50 mg Vancomycin HCl (Vancomycin Cap*) 125 mg PO QID [facility] Last Admin: 04/19/17 10:41 Dose: 125 mg Vital Signs 04/18/17 04/18/17 04/19/17 16:00 19:46 00:47 Temperature 98.4 F 98.5 F 98.3 F Pulse Rate 79 61 86 Respiratory 20 16 16 Rate Blood Pressure 122/62 114/61 107/60 (mmHg) O2 Sat by Pulse 100 92 96 Oximetry 04/19/17 04/19/17 04/19/17 07:50 08:30 09:09 Temperature 99.4 F Pulse Rate 76 Respiratory 20 16 20 Rate Blood Pressure 140/65 (mmHg) O2 Sat by Pulse 98 Oximetry Oxygen Devices in Use Now: None Appearance: Elderly male sitting up in bed, NAD Eyes: No Scleral Icterus Ears/Nose/Mouth/Throat: Mucous Membranes Moist Respiratory: Symmetrical Chest Expansion and Respiratory Effort, Clear to Auscultation Cardiovascular: NL Sounds; No Murmurs; No JVD, RRR, No Edema Abdominal: - - BS hyperactive, soft, mildly distended, diffusely tender Extremities: No Clubbing, Cyanosis Skin: No Rash or Ulcers, No Nodules or Sclerosis Neurological: - - awake, alert, pleasantly confused but his speech is clearer today Result Diagrams: 04/18/17 08:15 04/18/17 08:15 Additional Lab and Data: Lab Results 04/17/17 04/17/17 04/17/17 Range/Units 13:58 13:58 13:58 WBC 11.8 H (3.5-10.8) 10^3/ul RBC 4.47 (4.0-5.4) 10^6/ul Hgb 13.4 L (14.0-18.0) g/dl Hct 42 (42-52) % MCV 93 (80-94) fL MCH 30 (27-31) pg MCHC 32 (31-36) g/dl RDW 15 (10.5-15) % Plt Count 206 (150-450) 10^3/ul MPV 8 (7.4-10.4) um3 Neut % (Auto) 84.4 H (38-83) % Lymph % (Auto) 7.0 L (25-47) % Amador % (Auto) 7.7 (1-9) % Eos % (Auto) 0.4 (0-6) % Baso % (Auto) 0.5 (0-2) % Absolute Neuts (auto) 10.0 H (1.5-7.7) 10^3/ul Absolute Lymphs (auto) 0.8 L (1.0-4.8) 10^3/ul Absolute Monos (auto) 0.9 H (0-0.8) 10^3/ul Absolute Eos (auto) 0.1 (0-0.6) 10^3/ul Absolute Basos (auto) 0.1 (0-0.2) 10^3/ul Absolute Nucleated RBC 0 10^3/ul Nucleated RBC % 0 Sodium 130 L (133-145) mmol/L Potassium 5.3 H (3.5-5.0) mmol/L Chloride 96 L (101-111) mmol/L Carbon Dioxide 28 (22-32) mmol/L Anion Gap 6 (2-11) mmol/L BUN 39 H (6-24) mg/dL Creatinine 2.06 H (0.67-1.17) mg/dL Est GFR ( Amer) 39.3 (>60) Est GFR (Non-Af Amer) 30.6 (>60) BUN/Creatinine Ratio 18.9 (8-20) Glucose 106 H (70-100) mg/dL Lactic Acid 1.0 (0.5-2.0) mmol/L Calcium 9.4 (8.6-10.3) mg/dL Total Bilirubin 0.90 (0.2-1.0) mg/dL AST 17 (13-39) U/L ALT 14 (7-52) U/L Alkaline Phosphatase 83 (34-104) U/L C-Reactive Protein 182.88 H (< 5.00) mg/L Total Protein 7.5 (6.4-8.9) g/dL Albumin 3.6 (3.2-5.2) g/dL Globulin 3.9 (2-4) g/dL Albumin/Globulin Ratio 0.9 L (1-3) Lipase 18 (11.0-82.0) U/L Prostate Specific Ag 1.083 (0-4.000) ng/mL Microbiology and Other Data: Microbiology 04/18/17 02:00 Nasal Screen MRSA (PCR)([facility]) - Final Nasal Mrsa Negative Assess/Plan/Problems-Billing Mr Contreras is an 89 yo M who has a h/o dementia, recent hospitalization for LLL pneumonia, who presented to the ER with c/o abdominal pain. - Patient Problems (1) Abdominal pain Current Visit: Yes Status: Acute Code(s): R10.9 - UNSPECIFIED ABDOMINAL PAIN SNOMED Code(s): 54284171 Comment: Yesterday afternoon the patient began to have profuse diarrhea. Cdiff test sent and was positive. I started flagyl though today he has been refusing it due to taste. I have changed to oral vanco. I think the Cdiff explains his pain and the elevated CRP. Continue to follow. (2) CKD (chronic kidney disease) stage 3, GFR 30-59 ml/min Current Visit: Yes Status: Acute Code(s): N18.3 - CHRONIC KIDNEY DISEASE, STAGE 3 (MODERATE) SNOMED Code(s): 485342544 Comment: Creatinine remains stable. Continue to follow intermittently. (3) Atrial flutter Current Visit: Yes Status: Chronic Code(s): I48.92 - UNSPECIFIED ATRIAL FLUTTER SNOMED Code(s): 4057736 Comment: Sounded regular on exam today. Continue metoprolol. (4) HTN (hypertension) Current Visit: Yes Status: Chronic Code(s): I10 - ESSENTIAL (PRIMARY) HYPERTENSION SNOMED Code(s): 54207001 Comment: BP is under good control. Continue current regimen. (5) GERD (gastroesophageal reflux disease) Current Visit: Yes Status: Chronic Code(s): K21.9 - GASTRO-ESOPHAGEAL REFLUX DISEASE WITHOUT ESOPHAGITIS SNOMED Code(s): 457055252 Comment: Continue omeprazole. (6) Dementia Current Visit: Yes Status: Chronic Code(s): F03.90 - UNSPECIFIED DEMENTIA WITHOUT BEHAVIORAL DISTURBANCE SNOMED Code(s): 82027509 Comment: Continue supportive care. (7) DVT prophylaxis Current Visit: Yes Status: Acute Code(s): TIA7477 - SNOMED Code(s): 774753110 Comment: SQ heparin (8) DNR (do not resuscitate) Current Visit: Yes Status: Acute
[2017-04-19] MEDS: NS 0.9% 1000 ML* 1,000 ML IV SCH (13:55)
[2017-04-19] MEDS: Acetaminophen ADULT LIQ* 650 MG/20.3 ML UDC PO SCH ×2 (13:55→22:52)
[2017-04-19] MEDS ORDERED: Vancomycin(*) 1,000 MG in NS 0.9% 250 ML* 250 ML IVPB ONE (17:00)
[2017-04-19] MEDS: Doxazosin TAB* 2 MG PO SCH (22:45)
[2017-04-20] MEDS: Acetaminophen ADULT LIQ* 650 MG/20.3 ML UDC PO SCH ×4 (03:09→21:27)
[2017-04-20] MEDS: Heparin VIAL(*) 5000 UNITS/ML VIAL (FIVE THOUSAND) SUBCUT SCH ×3 (05:06→21:35)
[2017-04-20] MEDS: Calcitriol CAP* 0.25 MCG PO SCH (09:18)
[2017-04-20] MEDS: Metoprolol Tartrate TAB* 25 MG PO SCH ×2 (09:18→21:32)
[2017-04-20] MEDS: Aspirin EC Low Dose* 81 MG TAB.EC PO SCH (09:18)
[2017-04-20] MEDS: Vancomycin CAP* 125 MG CAP PO SCH ×4 (09:19→21:31)
[2017-04-20] MEDS: Omeprazole CAP* 20 MG PO SCH (09:19)
[2017-04-20] MEDS ORDERED: Vancomycin(*) 1,000 MG in NS 0.9% 250 ML* 250 ML IVPB SCH (10:00)
--- NOTE | 2017-04-20 16:42 | PN ---
Subjective Date of Service: 04/20/17 Interval History: He denies abdominal pain, states he had no BM today. No new c/o. Objective Active Medications: Acetaminophen (Tylenol Adult Liq*) 975 mg PO 0200,0800,1400,2000 [facility] Last Admin: 04/20/17 13:47 Dose: 975 mg Aspirin (Aspirin Ec Low Dose*) 81 mg PO DAILY [facility] Last Admin: 04/20/17 09:18 Dose: 81 mg Calcitriol (Rocaltrol Cap*) 0.5 mcg PO DAILY [facility] Last Admin: 04/20/17 09:18 Dose: 0.5 mcg Calcium Carbonate (Tums*) 500 mg PO BID PRN PRN Reason: INDIGESTION Doxazosin Mesylate (Cardura Tab*) 1 mg PO BEDTIME [facility] Last Admin: 04/19/17 22:45 Dose: 1 mg Heparin Sodium (Porcine) (Heparin Vial(*)) 5,000 units SUBCUT Q8HR [facility] Last Admin: 04/20/17 13:47 Dose: 5,000 units Sodium Chloride (Ns 0.9% 1000 Ml*) 1,000 mls @ 75 mls/hr IV PER RATE [facility] Last Admin: 04/19/17 13:55 Dose: 75 mls/hr Vancomycin HCl 1,000 mg/ (Sodium Chloride) 250 mls @ 166.667 mls/hr IVPB Q24H [facility] Last Admin: 04/20/17 10:01 Dose: 166.667 mls/hr Metoprolol Tartrate (Lopressor Tab*) 12.5 mg PO BID [facility] Last Admin: 04/20/17 09:18 Dose: 12.5 mg Morphine Sulfate (Morphine Inj (Syringe)*) 2 mg IV Q4H PRN PRN Reason: PAIN - MILD Omeprazole (Prilosec Cap*) 20 mg PO DAILY [facility] Last Admin: 04/20/17 09:19 Dose: 20 mg Ondansetron HCl (Zofran Inj*) 4 mg IV Q6H PRN PRN Reason: NAUSEA Pharmacy Profile Note (Vancomycin Trough Check) 1 note FOLLOW UP 929 ONE Stop: 04/21/17 09:31 Tramadol HCl (Ultram*) 50 mg PO BID PRN PRN Reason: pain Last Admin: 04/19/17 09:09 Dose: 50 mg Vancomycin HCl (Vancomycin Cap*) 125 mg PO QID [facility] Last Admin: 04/20/17 13:47 Dose: 125 mg Vital Signs 04/19/17 04/20/17 04/20/17 20:00 00:39 02:26 Temperature 98.4 F Pulse Rate 21 61 Respiratory 20 16 Rate Blood Pressure 115/55 (mmHg) O2 Sat by Pulse 98 94 Oximetry 04/20/17 04/20/17 04/20/17 03:16 07:50 08:00 Temperature 97.8 F Pulse Rate 68 68 Respiratory 16 16 16 Rate Blood Pressure 116/65 128/62 (mmHg) O2 Sat by Pulse 98 97 Oximetry 04/20/17 15:49 Temperature 97.7 F Pulse Rate 64 Respiratory 18 Rate Blood Pressure 124/67 (mmHg) O2 Sat by Pulse 97 Oximetry Oxygen Devices in Use Now: None Appearance: Alert, partly up in bed. Neutral affect. Looks comfortable. Eyes: No Scleral Icterus Neck: NL Appearance and Movements; NL JVP, No Thyroid Enlargement, Masses Respiratory: Symmetrical Chest Expansion and Respiratory Effort, Clear to Auscultation, Clear to Percussion Cardiovascular: NL Sounds; No Murmurs; No JVD, RRR, No Edema, - Abdominal: NL Sounds; No Tenderness; No Distention, No Hepatosplenomegaly, - Extremities: No Edema, No Clubbing, Cyanosis, - Skin: No Rash or Ulcers, No Nodules or Sclerosis, - Neurological: NL Sensation - Not oriented to place or time. No tremor. Result Diagrams: 04/18/17 08:15 04/18/17 08:15 Additional Lab and Data: Lab Results 04/17/17 04/17/17 04/17/17 Range/Units 13:58 13:58 13:58 WBC 11.8 H (3.5-10.8) 10^3/ul RBC 4.47 (4.0-5.4) 10^6/ul Hgb 13.4 L (14.0-18.0) g/dl Hct 42 (42-52) % MCV 93 (80-94) fL MCH 30 (27-31) pg MCHC 32 (31-36) g/dl RDW 15 (10.5-15) % Plt Count 206 (150-450) 10^3/ul MPV 8 (7.4-10.4) um3 Neut % (Auto) 84.4 H (38-83) % Lymph % (Auto) 7.0 L (25-47) % Parmer % (Auto) 7.7 (1-9) % Eos % (Auto) 0.4 (0-6) % Baso % (Auto) 0.5 (0-2) % Absolute Neuts (auto) 10.0 H (1.5-7.7) 10^3/ul Absolute Lymphs (auto) 0.8 L (1.0-4.8) 10^3/ul Absolute Monos (auto) 0.9 H (0-0.8) 10^3/ul Absolute Eos (auto) 0.1 (0-0.6) 10^3/ul Absolute Basos (auto) 0.1 (0-0.2) 10^3/ul Absolute Nucleated RBC 0 10^3/ul Nucleated RBC % 0 Sodium 130 L (133-145) mmol/L Potassium 5.3 H (3.5-5.0) mmol/L Chloride 96 L (101-111) mmol/L Carbon Dioxide 28 (22-32) mmol/L Anion Gap 6 (2-11) mmol/L BUN 39 H (6-24) mg/dL Creatinine 2.06 H (0.67-1.17) mg/dL Est GFR ( Amer) 39.3 (>60) Est GFR (Non-Af Amer) 30.6 (>60) BUN/Creatinine Ratio 18.9 (8-20) Glucose 106 H (70-100) mg/dL Lactic Acid 1.0 (0.5-2.0) mmol/L Calcium 9.4 (8.6-10.3) mg/dL Total Bilirubin 0.90 (0.2-1.0) mg/dL AST 17 (13-39) U/L ALT 14 (7-52) U/L Alkaline Phosphatase 83 (34-104) U/L C-Reactive Protein 182.88 H (< 5.00) mg/L Total Protein 7.5 (6.4-8.9) g/dL Albumin 3.6 (3.2-5.2) g/dL Globulin 3.9 (2-4) g/dL Albumin/Globulin Ratio 0.9 L (1-3) Lipase 18 (11.0-82.0) U/L Prostate Specific Ag 1.083 (0-4.000) ng/mL Microbiology and Other Data: Microbiology 04/18/17 02:00 Nasal Screen MRSA (PCR)(JOSEMANUEL) - Final Nasal Mrsa Negative Assess/Plan/Problems-Billing Mr Contreras is an 89 yo M who has a h/o dementia, recent hospitalization for LLL pneumonia, who presented to the ER with c/o abdominal pain. - Patient Problems (1) Abdominal pain Current Visit: Yes Status: Acute Code(s): R10.9 - UNSPECIFIED ABDOMINAL PAIN SNOMED Code(s): 38762489 Comment: 04/18 the patient began to have profuse diarrhea. Cdiff test sent and was positive. Started flagyl but refused it due to taste, changed to oral vanco. I think the Cdiff explains his pain and the elevated CRP. Pubic rami fx' s may contribute his pain, although none today. (2) Atrial flutter Current Visit: Yes Status: Chronic Code(s): I48.92 - UNSPECIFIED ATRIAL FLUTTER SNOMED Code(s): 3741037 Comment: Continue metoprolol. (3) UTI (urinary tract infection) Current Visit: Yes Status: Acute Comment: E. faecium >100,00 on C&S. Sens pending. Continue IV vanco. I spoke to daughter Romi Schroeder ("the nurse in the family") to update her. She didn't know what the reaction to ampicillin was or when it was. (4) CKD (chronic kidney disease) stage 3, GFR 30-59 ml/min Current Visit: Yes Status: Acute Code(s): N18.3 - CHRONIC KIDNEY DISEASE, STAGE 3 (MODERATE) SNOMED Code(s): 168787743 Comment: Creatinine remains stable. Needs outpt fup. (5) GERD (gastroesophageal reflux disease) Current Visit: Yes Status: Chronic Code(s): K21.9 - GASTRO-ESOPHAGEAL REFLUX DISEASE WITHOUT ESOPHAGITIS SNOMED Code(s): 141329226 Comment: Continue omeprazole. (6) Dementia Current Visit: Yes Status: Chronic Code(s): F03.90 - UNSPECIFIED DEMENTIA WITHOUT BEHAVIORAL DISTURBANCE SNOMED Code(s): 28175409 Comment: Continue supportive care. (7) HTN (hypertension) Current Visit: Yes Status: Chronic Code(s): I10 - ESSENTIAL (PRIMARY) HYPERTENSION SNOMED Code(s): 09838668 Comment: BP is under good control. Continue metoprolol.
[2017-04-20] MEDS: traMADol TAB* 50 MG PO PRN (16:51)
[2017-04-20] MEDS: Doxazosin TAB* 2 MG PO SCH (21:32)
[2017-04-20] MEDS: NS 0.9% 1000 ML* 1,000 ML IV SCH (23:35)
[2017-04-21] MEDS: Acetaminophen ADULT LIQ* 650 MG/20.3 ML UDC PO SCH (02:18)
[2017-04-21] MEDS ORDERED: Acetaminophen TAB* 325 MG PO PRN (02:57)
[2017-04-21] MEDS: Heparin VIAL(*) 5000 UNITS/ML VIAL (FIVE THOUSAND) SUBCUT SCH ×3 (05:24→21:41)
[2017-04-21 06:52] LABS: EGFR African American 63.5 (>60); EGFR Non-African American 49.3 (>60)
[2017-04-21 06:54] LABS: Vancomycin Trough 7.8 mcg/mL
[2017-04-21] MEDS ORDERED: Vancomycin Trough Check NOTE FOLLOW UP ONE (09:30)
[2017-04-21] MEDS: Omeprazole CAP* 20 MG PO SCH (10:35)
[2017-04-21] MEDS: Vancomycin CAP* 125 MG CAP PO SCH ×4 (10:35→21:37)
[2017-04-21] MEDS: Calcitriol CAP* 0.25 MCG PO SCH (10:35)
[2017-04-21] MEDS: Metoprolol Tartrate TAB* 25 MG PO SCH ×2 (10:35→21:35)
[2017-04-21] MEDS: Aspirin EC Low Dose* 81 MG TAB.EC PO SCH (10:35)
[2017-04-21] MEDS: Morphine INJ* 2 MG/ML 1 ML SYRINGE IV PRN (13:11)
--- NOTE | 2017-04-21 14:32 | PN ---
Subjective Date of Service: 04/21/17 Interval History: HOSPITALIST PROGRESS NOTE Patient seen and examined at bedside. Pleasantly confused, offers no complaints at this time. Family History: Unchanged from Admission Social History: Unchanged from Admission Past Medical History: Unchanged from Admission Objective Active Medications: Acetaminophen (Tylenol Tab*) 650 mg PO Q4H PRN PRN Reason: PAIN/FEVER Aspirin (Aspirin Ec Low Dose*) 81 mg PO DAILY [facility] Last Admin: 04/21/17 10:35 Dose: 81 mg Calcitriol (Rocaltrol Cap*) 0.5 mcg PO DAILY [facility] Last Admin: 04/21/17 10:35 Dose: 0.5 mcg Calcium Carbonate (Tums*) 500 mg PO BID PRN PRN Reason: INDIGESTION Doxazosin Mesylate (Cardura Tab*) 1 mg PO BEDTIME [facility] Last Admin: 04/20/17 21:32 Dose: 1 mg Heparin Sodium (Porcine) (Heparin Vial(*)) 5,000 units SUBCUT Q8HR [facility] Last Admin: 04/21/17 13:11 Dose: 5,000 units Metoprolol Tartrate (Lopressor Tab*) 12.5 mg PO BID [facility] Last Admin: 04/21/17 10:35 Dose: 12.5 mg Morphine Sulfate (Morphine Inj (Syringe)*) 2 mg IV Q4H PRN PRN Reason: PAIN - MILD Last Admin: 04/21/17 13:11 Dose: 2 mg Ondansetron HCl (Zofran Inj*) 4 mg IV Q6H PRN PRN Reason: NAUSEA Tramadol HCl (Ultram*) 50 mg PO BID PRN PRN Reason: pain Last Admin: 04/20/17 16:51 Dose: 50 mg Vancomycin HCl (Vancomycin Cap*) 125 mg PO QID [facility] Last Admin: 04/21/17 10:35 Dose: 125 mg Vital Signs 04/21/17 04/21/17 04/21/17 04:36 07:17 08:33 Temperature 98.4 F 98.0 F Pulse Rate 69 39 58 Respiratory 16 16 Rate Blood Pressure 133/65 150/59 (mmHg) O2 Sat by Pulse 98 96 Oximetry Oxygen Devices in Use Now: None Appearance: Elderly gentleman lying in bed in [facility]. Eyes: No Scleral Icterus Ears/Nose/Mouth/Throat: Mucous Membranes Moist Neck: Trachea Midline Respiratory: Symmetrical Chest Expansion and Respiratory Effort, Clear to Auscultation Cardiovascular: NL Sounds; No Murmurs; No JVD, RRR Abdominal: - - Soft, mild diffuse pain on palpation, BS+ and increased Extremities: No Edema Neurological: - - AAOx1 (self only), ROSARIO Lines/Tubes/Other Access: Clean, Dry and Intact Peripheral IV Nutrition: Taking PO's Result Diagrams: 04/18/17 08:15 04/21/17 06:03 Assess/Plan/Problems-Billing Mr Contreras is an 89 yo M who has a h/o dementia, recent hospitalization for LLL pneumonia, who presented to the ER with c/o abdominal pain, found to have C. diff colitis. - Patient Problems (1) C. difficile colitis Comment: - He seems to be doing better today. - Continue Vancomycin PO. (2) Atrial flutter Comment: - Rate is controlled - continue metoprolol. (3) HTN (hypertension) Comment: - Controlled - continue metoprolol. (4) Pelvic fracture Comment: - Called by his PCP (Dr. Way) - patient had a fall on 04/[address] at that time was negative for fracture. CT done 04/17 does show comminuted fracture of left superior and inferior pubic rami. I believe this is likely secondary to his prior fall, but she's concerned with the possibility of bone mets. - Check bone scan. (5) GERD (gastroesophageal reflux disease) Comment: - Continue omeprazole. (6) Dementia Comment: - Continue supportive care. (7) VRE (vancomycin resistant enterococcus) culture positive Comment: - Urine culture grew VRE - d/c IV Vancomycin. - Unclear if he truly has an UTI or if this is just colonization. I believe C. diff is enouch to explain his symptoms. - ID consult requested. (8) DVT prophylaxis Comment: - SQ heparin. (9) DNR (do not resuscitate) Status and Disposition: Inpatient.
--- NOTE | 2017-04-21 14:43 | RAD ---
INDICATION: Prostate carcinoma. Fall. Pelvic fractures. Rib fractures. COMPARISON: CT abdomen and pelvis same date; right RIBS April 08, 2017 TECHNIQUE: Following the intravenous administration of 20.7 millicuries of technetium 99m HDP, a total body bone scan was performed. FINDINGS: There is increased activity about the left superior and inferior pubic rami in this patient with known fractures left hemipelvis. There are multiple right-sided rib fractures in this patient with known traumatic fractures sustained 2 weeks previously. There are no other significant abnormal areas of increased isotopic activity. There are no scintigraphic evidence of osseous metastatic disease. There is normal renal and bladder activity. IMPRESSION: INCREASED ACTIVITY ABOUT THE LEFT TEMPORAL PELVIS RIGHT RIBS CORRESPONDING TO KNOWN FRACTURES. NO ADDITIONAL SIGNIFICANT SCINTIGRAPHIC FINDINGS. CPT II Codes: 3570F PQRS (Nuc med compare/no prior)
--- NOTE | 2017-04-21 15:09 | CONS ---
CONSULTATION REPORT: DATE OF CONSULTATION: 04/21/17 REQUESTING PROVIDER: Dr. Keita CONSULTING SERVICE: Infectious Disease. REASON FOR CONSULTATION: 1. Abdominal pain. 2. Positive urine culture. IMPRESSION: 1. Encephalopathy, present on admission, improving. 2. Dementia at baseline. 3. Diffuse abdominal pain, which he cannot provide any history on, but apparently at some point has been right upper quadrant and left lower quadrant variably. Urinalysis shows no ketones, no blood, no nitrites. There is 1+ leukocyte esterase, 3+ white cells. Review of his urinalysis shows for the last 3 months, he has always had white cells in the urine and during that time, has had a negative urine culture on 04/08/17. Now is growing vancomycin- resistant enterococci and normal constantino. The combination of bland urinalysis, history of asymptomatic pyuria, multiple organisms in the urine culture, I think this is colonization and not infection. 4. Positive Clostridium difficile test. He had a few episodes of loose stool on 04/18/17 in the setting of also being on magnesium oxide. His bowel symptoms apparently resolved rapidly and review of his medical record shows no bowel movement in about a day. The use of magnesium oxide as well as rapid improvement in his bowel symptoms argues against the diagnosis of Clostridium difficile diarrhea. 5. Chronic kidney disease. 6. PENICILLIN allergy. 7. Heart failure, preserved ejection fraction. RECOMMENDATION: I agreed with not treating vancomycin-resistant enterococcus in the urine culture. We will follow his inflammatory markers, and has symptoms while he is here. He will be on vancomycin at this point for positive C. difficile test. HISTORY OF PRESENT ILLNESS: This is an 89-year-old male with dementia who cannot provide any history given his baseline mental status. He was brought from [facility] on 04/17/17 with complaints of abdominal pain and decrease in his mental acuity. He had been in the hospital 04/08/17 through 04/10/17 after a fall and treated for pneumonia at that time. Review of the [facility] notes does not show any diarrhea, just abdominal pain, which he was evaluated for and referred to the ER. He had a CT scan here that showed a pubic ramus fracture, left inferior and superior pubic rami were fractured, was not present on the scan on 04/08/17. Gallbladder ultrasound showed some biliary sludge. He has had no fevers here. CRP was 118. On 04/18/17, he had magnesium oxide therapy for low magnesium. Later that day, he started to develop multiple liquid stools. C. diff test was positive. He would not take the Flagyl because it tasted bad. He is on vancomycin now. He has had no bowel movement recorded since 04/20/17. He denies abdominal pain now. According to the nurse, there is no bowel movement today. PAST MEDICAL HISTORY: 1. Dementia. 2. Heart failure with preserved ejection fraction. 3. Chronic kidney disease stage 4. 4. Depression. 5. Chronic pain. 6. Atrial flutter. 7. Hypertension. 8. Gastroesophageal reflux disease. 9. Anxiety. 10. Peripheral vascular disease. 11. Vitamin D deficiency. ALLERGIES: 1. PENICILLIN - unknown reaction. 2. CODEINE. 3. ARICEPT. 4. NEOMYCIN. MEDICATIONS: 1. Tylenol. 2. Aspirin. 3. Calcitriol. 4. Calcium carbonate. 5. Doxazosin. 6. Heparin. 7. Metoprolol. 8. Morphine p.r.n. 9. Omeprazole. 10. Vancomycin 125 mg by mouth 4 times a day. 11. Tramadol. SOCIAL HISTORY: He has been living at [facility]. FAMILY HISTORY: Unable to obtain. REVIEW OF SYSTEMS: Unable to obtain given his mental status. PHYSICAL EXAM: Vital Signs: Temperature is 37, heart rate 50, respiratory rate 16, blood pressure 150/59, O2 sat 96% on room air. In general, he is awake , not in distress. HEENT: There is no conjunctival hemorrhage. Oropharynx without lesions. Neck is supple without nuchal rigidity. Neurologic: He is awake. Answers some questions yes or no. Oriented x1. Follows some commands. Moves all extremities. Heart is regular rate and rhythm without murmurs, rubs, or gallops. Lungs are clear to auscultation bilaterally. Abdomen is soft. There are bowel sounds present. There is no tenderness to palpation. There is no suprapubic tenderness to palpation either. There is no flank tenderness to palpation. Skin: There is no rash or splinter hemorrhages. Musculoskeletal: There is no spinal tenderness to palpation. There is pain with left hip flexion and left pubic symphysis palpation, no pain with pubic symphysis palpation on the right. LABORATORY DATA: White blood cell count 11 on admission, then 9 on 04/18/17. Hemoglobin 12, platelets 170. Creatinine is 1.3. Please see impressions and recommendations outlined above. Thank you for asking me to see Mr. Contreras in consultation. [id number]/[facility] #: [id number] MTDJose Enrique
[2017-04-21] MEDS: Doxazosin TAB* 2 MG PO SCH (21:34)
[2017-04-21] MEDS: traMADol TAB* 50 MG PO PRN (22:49)
[2017-04-22] MEDS: Morphine INJ* 2 MG/ML 1 ML SYRINGE IV PRN ×2 (00:58→06:04)
[2017-04-22 04:38] LABS: Hematocrit 35 % (42-52); Hemoglobin 11.6 g/dl (14.0-18.0); Mean Corpuscular HGB Conc 33 g/dl (31-36); Mean Corpuscular Hemoglobin 31 pg (27-31); Mean Corpuscular Volume 93 fL (80-94); Mean Platelet Volume 7 um3 (7.4-10.4); Red Blood Count 3.77 10^6/ul (4.0-5.4); Red Cell Distribution Width 14 % (10.5-15); White Blood Count 5.5 10^3/ul (3.5-10.8)
[2017-04-22 04:53] LABS: Calcium 8.5 mg/dL (8.6-10.3); EGFR African American 68.7 (>60); EGFR Non-African American 53.4 (>60); Potassium 3.8 mmol/L (3.5-5.0)
[2017-04-22 04:54] LABS: Add Diff/Slide Review? Slide Review Added; Comments Flag Yes
[2017-04-22] MEDS: Heparin VIAL(*) 5000 UNITS/ML VIAL (FIVE THOUSAND) SUBCUT SCH ×3 (05:55→21:27)
[2017-04-22 08:28] LABS: C Reactive Protein 53.71 mg/L (< 5.00)
[2017-04-22] MEDS: Vancomycin CAP* 125 MG CAP PO SCH ×4 (09:19→21:30)
[2017-04-22] MEDS: traMADol TAB* 50 MG PO PRN (09:19)
[2017-04-22] MEDS: Aspirin EC Low Dose* 81 MG TAB.EC PO SCH (09:20)
[2017-04-22] MEDS: Metoprolol Tartrate TAB* 25 MG PO SCH ×2 (09:20→21:27)
[2017-04-22] MEDS: Calcitriol CAP* 0.25 MCG PO SCH (09:22)
--- NOTE | 2017-04-22 16:31 | PN ---
Subjective Date of Service: 04/22/17 Interval History: HOSPITALIST PROGRESS NOTE Patient seen and examined at bedside. Offers no complaints today. As per RN, had one soft BM so far today. Family History: Unchanged from Admission Social History: Unchanged from Admission Past Medical History: Unchanged from Admission Objective Active Medications: Acetaminophen (Tylenol Tab*) 650 mg PO Q4H PRN PRN Reason: PAIN/FEVER Aspirin (Aspirin Ec Low Dose*) 81 mg PO DAILY [facility] Last Admin: 04/22/17 09:20 Dose: 81 mg Calcitriol (Rocaltrol Cap*) 0.5 mcg PO DAILY [facility] Last Admin: 04/22/17 09:22 Dose: 0.5 mcg Calcium Carbonate (Tums*) 500 mg PO BID PRN PRN Reason: INDIGESTION Doxazosin Mesylate (Cardura Tab*) 1 mg PO BEDTIME [facility] Last Admin: 04/21/17 21:34 Dose: 1 mg Heparin Sodium (Porcine) (Heparin Vial(*)) 5,000 units SUBCUT Q8HR [facility] Last Admin: 04/22/17 13:08 Dose: 5,000 units Metoprolol Tartrate (Lopressor Tab*) 12.5 mg PO BID [facility] Last Admin: 04/22/17 09:20 Dose: 12.5 mg Morphine Sulfate (Morphine Inj (Syringe)*) 2 mg IV Q4H PRN PRN Reason: PAIN - MILD Last Admin: 04/22/17 06:04 Dose: 2 mg Ondansetron HCl (Zofran Inj*) 4 mg IV Q6H PRN PRN Reason: NAUSEA Tramadol HCl (Ultram*) 50 mg PO BID PRN PRN Reason: pain Last Admin: 04/22/17 09:19 Dose: 50 mg Vancomycin HCl (Vancomycin Cap*) 125 mg PO QID [facility] Last Admin: 04/22/17 13:03 Dose: 125 mg Vital Signs 04/22/17 04/22/17 04/22/17 06:04 07:04 08:12 Temperature 97.9 F Pulse Rate 61 Respiratory 16 20 16 Rate Blood Pressure 124/67 (mmHg) O2 Sat by Pulse 98 Oximetry Oxygen Devices in Use Now: None Appearance: Elderly gentleman lying in bed in [place]. Eyes: No Scleral Icterus Ears/Nose/Mouth/Throat: Mucous Membranes Moist Neck: Trachea Midline Respiratory: Symmetrical Chest Expansion and Respiratory Effort, Clear to Auscultation Cardiovascular: RRR - Normal S1 and S2 Abdominal: NL Sounds; No Tenderness; No Distention Neurological: - - AAOx1 (self), ROSARIO Lines/Tubes/Other Access: Clean, Dry and Intact Peripheral IV Nutrition: Taking PO's Result Diagrams: 04/22/17 04:23 04/22/17 04:23 Assess/Plan/Problems-Billing Mr Contreras is an 89 yo M who has a h/o dementia, recent hospitalization for LLL pneumonia, who presented to the ER with c/o abdominal pain, found to have C. diff colitis. - Patient Problems (1) C. difficile colitis Comment: - Continues to improved - diarrhea is less frequent, pain seems to be less intense, tolerating diet, CRP trending down. - Continue Vancomycin PO. (2) Atrial flutter Comment: - Rate is controlled - continue metoprolol. (3) HTN (hypertension) Comment: - Controlled - continue metoprolol. (4) Pelvic fracture Comment: - Called by his PCP (Dr. Way) - patient had a fall on 04/[address] at that time was negative for fracture. CT done 04/17 does show comminuted fracture of left superior and inferior pubic rami. I believe this is likely secondary to his prior fall, but she's concerned with the possibility of bone mets. - Bone scan negative for mets. (5) GERD (gastroesophageal reflux disease) Comment: - Continue omeprazole. (6) Dementia Comment: - Continue supportive care. (7) VRE (vancomycin resistant enterococcus) culture positive Comment: - Urine culture grew VRE. - ID input appreciated. (8) DVT prophylaxis Comment: - SQ heparin. (9) DNR (do not resuscitate) Status and Disposition: Inpatient. Anticipate d/c in AM if he continues to improve.
[2017-04-22] MEDS: Doxazosin TAB* 2 MG PO SCH (21:24)
[2017-04-23] MEDS: Heparin VIAL(*) 5000 UNITS/ML VIAL (FIVE THOUSAND) SUBCUT SCH (06:08)
[2017-04-23 08:17] VITALS: BP 130/76
[2017-04-23] MEDS: Vancomycin CAP* 125 MG CAP PO SCH ×2 (08:47→13:10)
[2017-04-23] MEDS: Aspirin EC Low Dose* 81 MG TAB.EC PO SCH (08:48)
[2017-04-23] MEDS: Calcitriol CAP* 0.25 MCG PO SCH (08:48)
[2017-04-23] MEDS: Metoprolol Tartrate TAB* 25 MG PO SCH (09:05)
--- NOTE | 2017-04-23 10:46 | PN ---
Progress Note - Progress Note SOAP: Subjective: DOS: 04/23/17 CC: diarrhea HPI: 89 year old man admitted from SNF and developed diarrhea, no BM today, he denies pain but cannot give much history given his dementia. Objective: [] Vital Signs Temp 36.9 C 04/23/17 07:41 Pulse 75 04/23/17 07:41 Resp 18 04/23/17 08:00 BP 130/76 04/23/17 07:41 Pulse Ox 98 04/23/17 07:41 Intake & Output 04/22/17 04/23/17 04/23/17 18:59 06:59 18:59 Intake Total 100 120 Output Total 0 350 Balance 100 -230 Intake: Oral 100 120 Output: Urine 0 350 Other: Estimated Void Small # Bowel Movements 1 Estimated Stool Amount Small # Voids 1 Gen:Awake, Ox1 HEENT:PERRL, MMM Neck:Supple Heart:RRR no murmur Lungs:CTA BL Abd:+BS NTND soft Skin: no rash Assessment: 1. Cdif colitis, improving 2. VRE bacteruria, asymptomatic 3. dementia Plan: vancomycin 125 mg po 4x daily 03/14
--- NOTE | 2017-04-23 13:24 | DS ---
CC: Dr. Agnes Way DISCHARGE SUMMARY: DATE OF ADMISSION: 04/17/17 DATE OF DISCHARGE: 04/23/17 PRIMARY CARE PROVIDER: Dr. Agnes Way, at [facility]. DISCHARGE DIAGNOSES: 1. Clostridium difficile colitis. 2. Vancomycin-resistant enterococcal bacteriuria, asymptomatic. 3. Pelvic fracture. 4. Acute renal failure. 5. Hypokalemia. 6. Hyponatremia. SECONDARY DIAGNOSES: 1. Dementia. 2. Chronic kidney disease, stage 3 to 4. 3. Depression. 4. Atrial flutter. 5. Hypertension. 6. Gastroesophageal reflux disease. 7. Anxiety. 8. Heart failure with preserved ejection fraction. 9. Peripheral vascular disease. 10. Vitamin D deficiency. MEDICATIONS AT THE TIME OF TRANSFER: 1. Calcium carbonate 500 mg p.o. b.i.d. as needed for indigestion. 2. Calcitriol 0.5 mcg p.o. daily. 3. Aspirin 81 mg p.o. daily. 4. Acetaminophen 650 mg p.o. q.6 hours p.r.n. pain or fever. 5. Tramadol 50 mg p.o. b.i.d. 6. Omeprazole 20 mg p.o. daily. 7. Metoprolol tartrate 12.5 mg p.o. b.i.d. 8. Doxazosin 1 mg p.o. at bedtime. 9. Vitamin B12, 1000 mcg p.o. daily. 10. Potassium chloride 20 mg p.o. daily with her meal. 11. Magnesium oxide 800 mg p.o. b.i.d. New medication: 1. Vancomycin 125 mg p.o. four times a day for 10 more days. HOSPITAL COURSE: Mr. Contreras is an 89-year-old male with a past medical history as stated above that [place] [facility] [place] with left lower lobe pneumonia after sustaining a fall a t Boss. He returned to the emergency room on 04/17/17 with complaints of abdominal pain. For elieser luna details about his presentation, I refer you to his history and physical. The patient had a CT of the abdomen and pelvis that showed comminuted fracture of the left inferior and superior pubic rami, just adjacent to the pubic symphysis, and this was not present on 04/08/17. Low density in the body of the pancreas measuring 2.6 cm and a background of an atrophic pancreas, unchanged from 04/08/17. A gallbladder ultrasound showed hepatic steatosis, focal fatty sparing is noted adjacent to the gallbladder fossa. Sludge in the gallbladder, question of pancreatic cystic l esion in the body of the pancreas. Initially the etiology of his abdominal pain was not clear, but later on he developed copious diarrh ea and stool workup was positive for C. diff. He was initially started on oral Flagyl, but he refus ed it because of bitter state, and he was then switched to oral vancomycin that he has tolerated wel l. The patient had improvement of his abdominal pain. His bowel movements are now once or twice a day only. He remained afebrile and his white cell count has normalized. The patient grew VRE, greater than a 100,000 colonies, in his urine. He was seen in consultation by Infectious Disease (Dr. Dickey) and his impression was that the patient's presentation was second sally to his C. diff colitis and he felt that the VRE was just asymptomatic bacteriuria and would not warrant antibiotic treatment. On admission, the patient's CT showed a pelvic fracture and his primary care provider was concerned that this was not seen on his CT on 04/08/17 and that he could have metastatic bone disease. For th at reason, the patient underwent a bone scan that showed increased activity about the left pelvis an d right ribs, corresponding to known fractures, but no additional significant scintigraphic findings were seen. The patient has had a good appetite, had improvement of his abdominal pain and diarrhea, and he was felt to be stable for discharge today. His primary care provider, Dr. Way, was notified about hi s test results and plan for discharge. PHYSICAL EXAMINATION: Vital Signs: Temperature 98.5, heart rate is 75, respiratory rate is 16, oxy gen saturation is 98% on room air, blood pressure is 130/76. General: The patient is pleasantly co nfused, elderly male, lying in bed, in no acute distress. CVS: Normal S1, S2. Regular rate and rh ythm. Chest: Breath sounds present bilaterally, with no added sounds. Abdomen is soft, nontender. Bowel sounds present. Extremities: No edema. Neuro: He is alert, awake, oriented to self only. Able to move all 4 extremities. DIET: Regular diet. ACTIVITIES: As tolerated. DISPOSITION: To [facility]. STATUS WHILE IN THE HOSPITAL: Inpatient. Please keep in mind this is a summarized version of this patient's hospital stay. If you need more i nformation, please feel free to call me at [phone] or please obtain full medical records. TIME SPENT: Approximately 45 minutes were spent to complete this discharge. [id number]/[facility] #: [id number]
== END 2017-04-23 14:15 | DRG 371 ==
LOC: ED 11:42 → MEDTELE 17:54 → OBSVTOIN 17:54
PROVIDERS: ADMIT Hospitalist; ATTEND Internal Medicine
DX: A04.7 Enterocolitis due to Clostridium difficile (principal); G93.40 Encephalopathy, unspecified; N18.4 Chronic kidney disease, stage 4 (severe); N17.9 Acute kidney failure, unspecified; S32.592A Other specified fracture of left pubis, initial encounter for closed fracture; K86.2 Cyst of pancreas; I13.0 Hypertensive heart and chronic kidney disease with heart failure and stage 1 through stage 4 chronic kidney disease, or unspecified chronic kidney disease; I50.30 Unspecified diastolic (congestive) heart failure; I48.92 Unspecified atrial flutter; E87.1 Hypo-osmolality and hyponatremia; E21.3 Hyperparathyroidism, unspecified; E05.90 Thyrotoxicosis, unspecified without thyrotoxic crisis or storm; E87.6 Hypokalemia; R82.71 Bacteriuria; F03.90 Unspecified dementia, unspecified severity, without behavioral disturbance, psychotic disturbance, mood disturbance, and anxiety; E87.5 Hyperkalemia; I48.91 Unspecified atrial fibrillation; I73.9 Peripheral vascular disease, unspecified; I25.10 Atherosclerotic heart disease of native coronary artery without angina pectoris; K21.9 Gastro-esophageal reflux disease without esophagitis; M48.00 Spinal stenosis, site unspecified; F32.9 Major depressive disorder, single episode, unspecified; G89.29 Other chronic pain; F41.9 Anxiety disorder, unspecified; W19.XXXA Unspecified fall, initial encounter; Z66 Do not resuscitate; B95.2 Enterococcus as the cause of diseases classified elsewhere; Z16.21 Resistance to vancomycin; K76.0 Fatty (change of) liver, not elsewhere classified; Z88.0 Allergy status to penicillin; Z88.1 Allergy status to other antibiotic agents; Z88.8 Allergy status to other drugs, medicaments and biological substances; Z98.41 Cataract extraction status, right eye; Z91.81 History of falling; Y92.9 Unspecified place or not applicable; Z79.82 Long term (current) use of aspirin; Z87.01 Personal history of pneumonia (recurrent)
CPT/HCPCS: 36415; 74176; 76705; 78306; 80048; 80053; 80202; 81003; 81015; 82565; 83605; 83690; 84153; 84520; 85025; 85027; 86140; 87077; 87086; 87186; 87493; 87641; A9270-GY; A9503; G0103; J1644; J2270; J3370

== ENCOUNTER → 2017-05-04 21:46 | Emergency (ER) | payer MEDICARE, MEDICAID ==
--- NOTE | 2017-05-04 23:00 | RAD ---
Amended report to correct patient account number. Indication: Fall, pelvic fracture. CT of the pelvis was obtained in the axial plane. Sagittal and coronal reconstructed images were obtained. Comminuted fracture of the left superior pubic rami near the pubic symphysis extending to the left inferior pubic rami is noted. Sacroiliac joint degenerative changes are noted. The femoral head and neck demonstrates degenerative changes without definite fracture. No pelvic masses are identified. The prostate and urinary bladder are unremarkable. No hernias are noted. IMPRESSION: Comminuted fractures of left superior and inferior pubic rami. Hip joints are intact. Degenerative changes of the sacroiliac joints noted. MTDD
--- NOTE | 2017-05-04 23:44 | ED ---
Lower Extremity - HPI Summary HPI Summary: Patient is BIBA after a witnessed fall on his bottom. He has a history of pelvic fracture a month ago. He is demented and poor historian therefore he is unable to state if anything hurts. - History of Current Complaint Chief Complaint: EDExtremityLower Stated Complaint: LT HIP PAIN Time Seen by Provider: 05/04/17 21:51 Hx Obtained From: EMS Mechanism Of Injury: Fall From A Standing Position Onset of Pain: Immediate Onset/Duration: Hours Severity Initially: Mild Severity Currently: None Pain Intensity: 0 Timing: Constant Character Of Pain: Unable To Describe Associated Signs And Symptoms: Positive: Negative Able to Bear Weight: No - Allergies/Home Medications Allergies/Adverse Reactions: Allergies Allergy/AdvReac Type Severity Reaction Status Date / Time Codeine Allergy Intermediate Vomiting Verified 04/08/17 10:41 Donepezil Allergy Unknown Verified 04/08/17 10:41 Reaction Details Neomycin Allergy Unknown Verified 04/08/17 10:41 Reaction Details Penicillins Allergy Unknown Verified 04/08/17 10:41 Reaction Details PMH/Surg Hx/FS Hx/Imm Hx Endocrine/Hematology History: Reports: Hx Thyroid Disease - hyperthyroid, Other Endocrine/Hematological Disorders - Hx of hypomagnesemia Denies: Hx Anticoagulant Therapy - pt denies Cardiovascular History: Reports: Hx Atrial Fibrillation, Hx Coronary Artery Disease, Hx Hypertension, Hx Peripheral Vascular Disease, Other Cardiovascular Problems/Disorders - PVD, CHRONIC RENAL FAILURE Respiratory History: Reports: Hx Pneumonia GI History: Reports: Hx Gastroesophageal Reflux Disease History: Reports: Hx Chronic Renal Failure Musculoskeletal History: Reports: Other Musculoskeletal History - L rotator cuff repair, pelvic fracture Sensory History: Denies: Hx Contacts or Glasses, Hx Hearing Aid, Hx Hearing Problem Opthamlomology History: Denies: Hx Contacts or Glasses Neurological History: Reports: Hx Dementia Comment Only: Other Neuro Impairments/Disorders - Hx AMS Psychiatric History: Reports: Hx Depression - Surgical History Surgery Procedure, Year, and Place: hernia repair, L rotator cuff repair Infectious Disease History: Yes Infectious Disease History: Denies: Hx Clostridium Difficile, Hx Hepatitis, Hx Human Immunodeficiency Virus (HIV), Hx of Known/Suspected MRSA, Hx Shingles, Hx Tuberculosis, History Other Infectious Disease, Traveled Outside the [place] in Last 30 Days - Family History Known Family History: Positive: None, Other - No- DVT Family History: R & n/C - Social History Occupation: Retired Lives: At [facility] Alcohol Use: None Hx Substance Use: No Substance Use Type: Reports: None Hx Tobacco Use: No Smoking Status (MU): Never Smoked Tobacco Review of Systems All Other Systems Reviewed And Are Negative: Yes Physical Exam - Summary Physical Exam Summary: Patient is demented and is unable to follow commands or answer questions as to whether he has pain or not. Triage Information Reviewed: Yes Vital Signs On Initial Exam: Initial Vitals Temp Pulse Resp BP Pulse Ox 98.3 F 84 20 107/91 96 05/04/17 22:02 05/04/17 22:02 05/04/17 22:02 05/04/17 22:02 05/04/17 22:02 Vital Signs Reviewed: Yes Appearance: Positive: Well-Appearing, No Pain Distress, Well-Nourished Skin: Positive: Warm, Skin Color Reflects Adequate Perfusion, Dry, Soft Head/Face: Positive: Normal Head/Face Inspection Eyes: Positive: EOMI, MAGALI, Conjunctiva Clear ENT: Positive: Hearing grossly normal Respiratory/Lung Sounds: Positive: Clear to Auscultation, Breath Sounds Present Cardiovascular: Positive: RRR Abdomen Description: Positive: Nontender, Soft Bowel Sounds: Positive: Present Neurological: Positive: Sensory/Motor Intact, Alert, Oriented to Person Place, Time Psychiatric: Positive: Other - demented but no acute distress AVPU Assessment: Alert - Cindy Coma Scale Coma Scale Total: 14 Diagnostics - Vital Signs Vital Signs Temp Pulse Resp BP Pulse Ox 05/04/17 22:05 98.3 F 84 20 107/91 96 05/04/17 22:02 98.3 F 84 20 107/91 96 - Laboratory Lab Statement: Any lab studies that have been ordered have been reviewed, and results considered in the medical decision making process. - CT No standard instances CT Interpretation: No Acute Changes CT Interpretation Completed By: Radiologist - Patient CT is consistent with previous imaging which reveal comminuted fractures of the left sup/inf pubic rami. Lower Extremity Course/Dx - Diagnoses Differential Diagnosis/HQI/PQRI: Positive: Bursitis, Contusion, DVT, Fracture ( Closed), Sprain, Strain Provider Diagnoses: left inferior and superior pubic rami fx Discharge - Discharge Plan Condition: Stable Disposition: HOME Patient Education Materials: Pelvic Fracture (ED) Referrals: No Primary Care Phys,NOPCP [Primary Care Provider] - Agnes Way MD [Medical Doctor] - Additional Instructions: Please call orthopedics in the morning for a follow-up appointment. Use a walker for weight bearing and activities as tolerated. Use tylenol for pain. Return to the emergency department if symptoms worsen.
[2017-05-05 03:05] VITALS: BP 143/87
== END | disposition home or self-care (01) ==
LOC: ED 21:46
DX: S32.592A Other specified fracture of left pubis, initial encounter for closed fracture (principal); W19.XXXA Unspecified fall, initial encounter; Y93.9 Activity, unspecified; Y92.9 Unspecified place or not applicable; Y99.9 Unspecified external cause status
CPT/HCPCS: 72192; 99282